=== PATIENT | male | born 1955 ===

== ENCOUNTER 2017-11-08 07:08 | Day surgery (SDC) | payer MEDICARE ==
[2016-05-26 14:47] VITALS: BMI 28.0
[2017-11-08] MEDS ORDERED: Iodixanol 320 MG/ML 200 ML BOTTLE IV ONE (07:14)
[2017-11-08] MEDS ORDERED: Lidocaine 2% Inj (20ml) ONE (07:14)
[2017-11-08] MEDS ORDERED: Midazolam 2 MG/2 ML VIAL ONE ×2 (07:14→07:44)
[2017-11-08 08:19] LABS: BASO # 0.04 K/mm3 (0.0-2.0); BASO % 0.6 % (0.0-3.0); EOS # 0.2 (0.0-0.7); EOS % 2.5 % (1.5-5.0); GRAN # 4.8 (1.4-6.5); GRAN % 66.4 % (50.0-68.0); HEMOGLOBIN 15.2 g/dL (14.0-18.0); LYMPH # 1.4 (1.2-3.4); LYMPH % 19.4 % (22.0-35.0); MEAN CELL VOLUME 85.6 fl (80.0-105.0); MEAN CORPUSCULAR HEMOGLOBIN 30.4 pg (25.0-35.0); MEAN CORPUSCULAR HGB CONC 35.5 g/dl (31.0-37.0); MEAN PLATELET VOLUME 10.8 fl (7.0-11.0); MONO # 0.8 (0.1-0.6); MONO % 11.1 % (1.0-6.0); RED CELL DISTRIBUTION WIDTH 13.2 % (11.5-14.5); WHITE BLOOD COUNT 7.2 10^3/ul (4.5-11.0)
[2017-11-08 08:30] LABS: CALCIUM 9.6 mg/dL (8.4-10.5)
[2017-11-08 08:33] LABS: INR 1.08 (0.93-1.08); PARTIAL THROMBOPLASTIN TIME 30.8 Seconds (25.1-36.5); PROTHROMBIN TIME 12.4 SECONDS (9.4-12.5)
[2017-11-08] MEDS ORDERED: Iohexol 350mgl/ml 50 ML ONE (09:15)
[2017-11-08] MEDS ORDERED: Eptifibatide 20 mg/10mL Inj IVP ONE (09:22)
[2017-11-08] MEDS ORDERED: Sodium Chloride 0.9% 1,000 ML IV SCH (09:30)
--- NOTE | 2017-11-08 10:20 | CARDCATH ---
PROCEDURE DATE: 11/08/2017 CARDIAC CATHETERIZATION AND PTCA HISTORY: The patient is a 62-year-old male who presented with unstable angina. He suffers from hypertension, hypercholesterolemia, history of CVA and history of paroxysmal atrial fibrillation. Because of his abnormal stress test, cardiac catheterization was recommended. PROCEDURES: Left heart catheterization with coronary arteriography, left ventriculogram, and PTCA and stent of the circumflex artery. I performed moderate sedation, which included the presence of an independent trained observer that assisted in monitoring the patient's level of consciousness and physiologic status. After administration of Versed and fentanyl, my intra service time was 30 minutes. The findings on catheterization revealed a right dominant circulation. The RCA revealed diffuse atherosclerosis without critical lesions. In the distal posterior lateral branch, there was a 99% stenoses noted. His left main artery was unremarkable. The LAD was diffusely diseased with diffuse disease throughout the LAD with multiple 40% to 70% lesions throughout its course. The circumflex artery revealed a 90% stenosis in the mid circumflex artery. LV function was normal on the stress test; however, the LVEDP was 10 mmHg on measurement in the [employer]. The patient was given IV Angiomax and two boluses of Integrilin. An ATW wire was used to cross the critical lesion. A 2.5 x 12 mm drug-eluting stent was placed and deployed at 14 atmospheres of pressure in the circumflex artery. Repeat coronary arteriography revealed an excellent result with no residual stenosis and HERVE III flow. Less than 50 mL of contrast dye was utilized given his poor renal function. The patient tolerated the procedure well. In summary, the procedure was successful PTCA and stent of a 90% circumflex artery with a drug-eluting stent. Cardiac catheterization revealed diffuse atherosclerosis with diffuse disease in the LAD, critical lesion in the circumflex artery as well as a critical disease in the distal portion of the posterolateral branch of the RCA. LV function is normal by nuclear study. Given these findings, the patient will need to remain on aspirin indefinitely and Plavix for least a year and undergo a strict cardiac risk reduction program. Juan Lujan MD
--- NOTE | 2017-11-08 11:35 | CARD ---
APPROVED REPORT EKG Measurement Heart [id number] [place] 200P17 [id number] <Conclusion> Sinus bradycardia with borderline 1st degree AVB PRWP No change
--- NOTE | 2017-11-08 13:00 | CARD ---
APPROVED REPORT EKG Measurement Heart [id number] 200P-8 [id number] <Conclusion> Sinus bradycardia Otherwise normal ECG
[2017-11-08] MEDS ORDERED: Insulin Detemir 100 units/ml Vial (Levemir) SC ONE ×2 (21:28→21:45)
[2017-11-08] MEDS ORDERED: Insulin Lispro 1 UNITS/0.01 ML SC ONE (21:29)
--- NOTE | 2017-11-08 23:16 | CP.PCM.PN ---
Subjective - Date & Time of Evaluation Date of Evaluation: 11/08/17 Time of Evaluation: 23:12 - Subjective Subjective: S:Patient seen at bedside. He was seen because his blood glucose was 324mg %. States that he is on 22 units of Lantus,last time he had it was 2 days ago. Has no complaints. Medical record was reviewed. O: Last Vital Signs 3 Temp 98.1 F 11/08/17 18:00 Pulse 61 11/08/17 22:00 Resp 21 11/08/17 18:00 BP 152/85 H 11/08/17 18:00 Pulse Ox 98 11/08/17 10:00 Awake, alert, not in distress. LUNGS: Normal breathing pattern. A:Hyperglycemia. Elevated blood pressure reading. P:Regular insulin 4 Units SC x 1. Levemir 20 U SC stat. Monitor BP. Objective - Vital Signs/Intake and Output Vital Signs (last 24 hours): Temp Pulse Resp BP Pulse Ox 98.1 F 61 21 152/85 H 98 11/08/17 18:00 11/08/17 22:00 11/08/17 18:00 11/08/17 18:00 11/08/17 10:00 - Medications Medications: Current Medications Aspirin (Ecotrin) 81 mg PO DAILY [facility] Last Admin: 11/08/17 10:10 Dose: Not Given Atorvastatin Calcium (Lipitor) 40 mg PO DIN [facility] Last Admin: 11/08/17 16:43 Dose: 40 mg Clonidine HCl (Catapres) 0.1 mg PO BID [facility] Last Admin: 11/08/17 19:21 Dose: Not Given Clopidogrel Bisulfate (Plavix) 75 mg PO DAILY [facility] Last Admin: 11/08/17 10:11 Dose: Not Given Metoprolol Tartrate (Lopressor) 25 mg PO BID [facility] Last Admin: 11/08/17 18:00 Dose: Not Given - Labs Labs: 11/08/17 08:00 11/08/17 08:00 PT 12.4 SECONDS (9.4-12.5) 11/08/17 08:00 INR 1.08 (0.93-1.08) 11/08/17 08:00 APTT 30.8 Seconds (25.1-36.5) 11/08/17 08:00
[2017-11-09 00:06] VITALS: RESP 18
[2017-11-09 05:43] VITALS: TEMP 98.4; O2SAT 97
[2017-11-09 06:20] LABS: BASO # 0.03 K/mm3 (0.0-2.0); BASO % 0.5 % (0.0-3.0); EOS # 0.1 (0.0-0.7); EOS % 1.9 % (1.5-5.0); GRAN # 3.46 (1.4-6.5); GRAN % 60.3 % (50.0-68.0); HEMOGLOBIN 11.9 g/dL (14.0-18.0); LYMPH # 1.4 (1.2-3.4); LYMPH % 23.7 % (22.0-35.0); MEAN CELL VOLUME 85.6 fl (80.0-105.0); MEAN CORPUSCULAR HEMOGLOBIN 29.6 pg (25.0-35.0); MEAN CORPUSCULAR HGB CONC 34.6 g/dl (31.0-37.0); MEAN PLATELET VOLUME 11.1 fl (7.0-11.0); MONO # 0.8 (0.1-0.6); MONO % 13.6 % (1.0-6.0); RBC 4.02 10^6/uL (3.5-6.1); RED CELL DISTRIBUTION WIDTH 13.2 % (11.5-14.5); WHITE BLOOD COUNT 5.7 10^3/ul (4.5-11.0)
[2017-11-09 07:53] LABS: CALCIUM 8.9 mg/dL (8.4-10.5)
--- NOTE | 2017-11-09 09:08 | PN ---
DATE: 11/09/2017 SUBJECTIVE: The patient is asymptomatic. PHYSICAL EXAMINATION: VITAL SIGNS: Blood pressure is 144/72, the heart rates in the 50s. NECK: Negative JVD. LUNGS: Without rales. HEART: Reveals S1, S2. EXTREMITIES: Without edema. LABORATORY DATA: Hemoglobin is 11.9. Chemistries: BUN and creatinine is pending today. Glucose is 194. IMPRESSION: 1. Stable post percutaneous transluminal coronary angioplasty and stent of the circumflex artery. 2. Hypertension. 3. Diabetes mellitus. 4. Hypercholesterolemia. Given these findings, the patient is stable for discharge. We will continue on the aspirin and Plavix. We will change the medications to Eliquis and Plavix at home and we will hold off on aspirin given the high risk of bleeding with multiple medications. Followup instructions were given to the patient in detail. Juan Lujan MD
[2017-11-09 10:04] VITALS: BP 138/78
--- NOTE | 2017-11-09 11:08 | CARD ---
APPROVED REPORT EKG Measurement Heart [id number] [id number] <Conclusion> Sinus bradycardia Otherwise normal ECG No change
--- NOTE | 2017-11-09 11:31 | PN ---
DATE: 11/09/2017 CARDIOLOGY FOLLOWUP SUBJECTIVE: The patient is without chest pain. PHYSICAL EXAMINATION VITAL SIGNS: Blood pressure is 144/72, the heart rate is in the 50s. NECK: Negative JVD. LUNGS: Without rales. HEART: Reveals S1 and S2. EXTREMITIES: Without edema. The right groin site is stable. LABORATORY DATA: Hemoglobin is 11.9. Chemistries: BUN and creatinine is 27 and 1.6. IMPRESSION: 1. Stable post percutaneous transluminal coronary angioplasty and stent. 2. Diabetes mellitus. 3. Renal insufficiency. 4. Hypertension. 5. History of cerebrovascular accident. PLAN: Given these findings, I had an extensive discussion with the patient and family about his diffuse atherosclerosis and his needs to dramatically change his lifestyle and his way of living. He needs to participate in a cardiac rehab program and undergo a strict cardiac risk reduction program. He needs to lose about 20 pounds. The patient understands. All questions were answered. The patient can be discharged today. Juan Lujan MD
[2017-11-09 11:48] VITALS: PULSE 60
== END 2017-11-09 12:14 | disposition home or self-care (01) ==
LOC: CATH 07:08 → 2RNO 09:55 → CATH 11-09 12:14
PROVIDERS: ATTEND Internal Medicine Cardiovascular Disease
DX: I25.110 Atherosclerotic heart disease of native coronary artery with unstable angina pectoris (principal); E78.00 Pure hypercholesterolemia, unspecified; I10 Essential (primary) hypertension; I48.0 Paroxysmal atrial fibrillation; E11.65 Type 2 diabetes mellitus with hyperglycemia; Z86.73 Personal history of transient ischemic attack (TIA), and cerebral infarction without residual deficits
CPT/HCPCS: 36415 ×2; 80048 ×2; 80061; 82948 ×2; 85025 ×2; 85610; 85730; 86850; 86900; 93005 ×2; 93458; 99152; C1760; C1769; C1874; C1887; C2629; C9600; J0360; J0583; J1327; J1644; J2250; J3010; J7030; J7040; Q9966; Q9967

== ENCOUNTER 2018-01-25 16:31 | Inpatient (IN) | payer MEDICARE, OTHER ==
[2018-01-25 16:36] VITALS: BMI 27.6
[2018-01-25] MEDS ORDERED: Sodium Chloride 0.9% 1,000 ML IV STA (17:06)
[2018-01-25 18:13] LABS: BASO # 0.02 K/mm3 (0.0-2.0); BASO % 0.2 % (0.0-3.0); EOS % 0.2 % (1.5-5.0); GRAN # 9.52 (1.4-6.5); GRAN % 80.3 % (50.0-68.0); HEMOGLOBIN 12.4 g/dL (14.0-18.0); LYMPH # 0.8 (1.2-3.4); LYMPH % 6.5 % (22.0-35.0); MEAN CELL VOLUME 85.2 fl (80.0-105.0); MEAN CORPUSCULAR HGB CONC 34.1 g/dl (31.0-37.0); MEAN PLATELET VOLUME 11.1 fl (7.0-11.0); MONO # 1.5 (0.1-0.6); MONO % 12.8 % (1.0-6.0); RBC 4.27 10^6/uL (3.5-6.1); RED CELL DISTRIBUTION WIDTH 13.2 % (11.5-14.5); WHITE BLOOD COUNT 11.8 10^3/ul (4.5-11.0)
[2018-01-25 18:17] LABS: ALB/GLOB RATIO 1.4 (1.1-1.8); ALBUMIN 4.1 g/dL (3.0-4.8); ALT/SGPT 29 U/L (7-56); AST/SGOT 23 U/L (17-59); BLOOD UREA NITROGEN 33 mg/dL (7-21); CALCIUM 9.5 mg/dL (8.4-10.5); GFR NON-AFRICAN AMERICAN 34; LIPASE 46 U/L (23-300)
[2018-01-25 18:24] LABS: TROPONIN I < 0.01 ng/mL
--- NOTE | 2018-01-25 19:17 | ED PDOC ---
Arrival/HPI - General Chief Complaint: Abdominal Pain Time Seen by Provider: 01/25/18 17:06 Historian: Patient - History of Present Illness Narrative History of Present Illness (Text): 01/25/18 17:06 62 year old male, with past medical history of hypertension, diabetes, CVA ( residual L hp) on plavix, and peripheral artery disease, presents to the Emergency Department complaining of abdominal pain since 2 days. Patient informs symptoms initially presented as epigastric discomfort, which later radiated to his right lower quadrant. Patient states associated nausea, vomiting and decreased appetite. Patient denies any fever, chills, diarrhea, chest pain, shortness of breath, cough, headache, dizziness, neck pain, back pain, hematuria, hematochezia, dysuria, urinary output changes or any other complaints. Time/Duration: < week Symptom Onset: Gradual Symptom Course: Unchanged Quality: Aching Activities at Onset: Light Context: Home Past Medical History - Provider Review Nursing Documentation Reviewed: Yes - Infectious Disease Hx of Infectious Diseases: None - Tetanus Immunization Tetanus Immunization: Unknown - Cardiac Hx Hypertension: Yes Hx Pacemaker: No Hx Peripheral Vascular Disease: Yes - Pulmonary Hx Respiratory Disorders: No - Neurological Hx Neurological Disorder: Yes HX Cerebrovascular Accident: Yes - HEENT Hx HEENT Disorder: No - Renal Hx Renal Disorder: No - Endocrine/Metabolic Hx Diabetes Mellitus Type 2: Yes - Hematological/Oncological Hx Blood Transfusions: No - Integumentary Hx Dermatological Disorder: No - Musculoskeletal/Rheumatological Hx Musculoskeletal Disorders: Yes - Gastrointestinal Hx Gastrointestinal Disorders: Yes Hx Gastroesophageal Reflux: Yes - Genitourinary/Gynecological Hx Genitourinary Disorders: No - Psychiatric Hx Emotional Abuse: No Hx Physical Abuse: No Hx Substance Use: No - Surgical History Hx Cardiac Catheterization: Yes (x 1 stent) Other/Comment: left leg stent x 3 stents. L great toe amputation - Anesthesia Hx Anesthesia: Yes Hx Anesthesia Reactions: No Hx Malignant Hyperthermia: No - Suicidal Assessment Feels Threatened In Home Enviroment: No Family/Social History - Physician Review Nursing Documentation Reviewed: Yes Family/Social History: No Known Family HX Smoking Status: Former Smoker Hx Alcohol Use: No Hx Substance Use: No Hx Substance Use Treatment: No Allergies/Home Meds Allergies/Adverse Reactions: Allergies No Known Allergies Allergy (Verified 05/26/16 14:45) Home Medications: Home Meds Medication Instructions Recorded Confirmed DULoxetine [Cymbalta] 60 mg PO DAILY 11/18/14 01/25/18 Alprazolam [Xanax] 0.5 mg PO BID 04/12/16 01/25/18 Amiodarone HCl [Pacerone] 100 mg PO DAILY 10/29/17 01/25/18 GlipiZIDE [Glucotrol] 5 mg PO BID 10/29/17 01/25/18 Repaglinide [Prandin] 0.5 mg PO BID 10/29/17 01/25/18 hydrALAZINE [Apresoline] 25 mg PO TID 11/05/17 01/25/18 Insulin Glargine,Hum.rec.anlog 22 unit SC DAILY 01/25/18 01/25/18 [Basaglar Kwikpen U-100] Lisinopril [Zestril] 40 mg PO DAILY 01/25/18 01/25/18 Metoprolol Succinate XL [Toprol XL] 1 tab PO DAILY 01/25/18 01/25/18 Review of Systems - Physician Review All systems were reviewed & negative as marked: Yes - Review of Systems Constitutional: absent: Fevers Respiratory: absent: SOB, Cough Cardiovascular: absent: Chest Pain, Palpitations Gastrointestinal: Abdominal Pain, Nausea, Vomiting. absent: Diarrhea, Hematochezia Genitourinary Male: absent: Dysuria, Hematuria, Urinary Output Changes Musculoskeletal: absent: Back Pain, Neck Pain Neurological: absent: Headache, Dizziness Physical Exam Vital Signs Reviewed: Yes Vital Signs Temp Pulse Resp BP Pulse Ox 01/25/18 21:45 66 16 147/66 98 01/25/18 19:46 67 18 126/80 99 01/25/18 16:41 98.0 F 82 18 125/73 97 Temperature: Afebrile Blood Pressure: Normal Pulse: Regular Respiratory Rate: Normal Appearance: Positive for: Well-Appearing, Non-Toxic, Comfortable Pain Distress: None Mental Status: Positive for: Alert and Oriented X 3 - Systems Exam Head: Present: Atraumatic, Normocephalic Pupils: Present: PERRL Extroacular Muscles: Present: EOMI Conjunctiva: Present: Normal Mouth: Present: Moist Mucous Membranes Neck: Present: Normal Range of Motion Respiratory/Chest: Present: Clear to Auscultation, Good Air Exchange. No: Respiratory Distress, Accessory Muscle Use Cardiovascular: Present: Regular Rate and Rhythm, Normal S1, S2. No: Murmurs Abdomen: Present: Tenderness (tenderness to right lower quadrant). No: Distention, Peritoneal Signs Back: Present: Normal Inspection Upper Extremity: Present: Normal Inspection. No: Cyanosis, Edema Lower Extremity: Present: Normal Inspection. No: Edema Neurological: Present: GCS=15, CN II-XII Intact, Speech Normal Skin: Present: Warm, Dry, Normal Color. No: Rashes Psychiatric: Present: Alert, Oriented x 3, Normal Insight, Normal Concentration Medical Decision Making ED Course and Treatment: 01/25/18 17:06 Impression: 62 year old male presents to the Emergency Department complaining of abdominal pain. Plan: -- CT of Abdomen/Pelvis -- EKG -- Labs -- Pepcid -- IV Fluids -- Zofran -- Urine Culture -- Urinalysis -- Reassess and disposition Prior Visits: Notes and results from previous visits were reviewed. Progress Notes: 01/25/18 17:06 EKG: Ordered, reviewed, and independently interpreted the EKG. Rate : 78 BPM Rhythm : NSR Interpretation : No ST-segment elevations or depressions, no T-wave inversions, normal intervals. CT of Abdomen/Pelvis reviewed by radiologist, shows: Uncomplicated acute appendicitis with 2 appendicoliths involving the proximal appendix. Incidental and other non-acute findings are described above. 01/25/18 17:50 Discussed case with resident associate, who is aware and agrees with Emergency Department management plan. 01/25/18 17:51 Discussed case with chief medical officer and attendee for medical admission secondary to comorbidities and recent cardiac stent placement. Antibiotics provided as per surgery. - Lab Interpretations Lab Results: 01/25/18 17:20 01/25/18 17:20 Lab Results 01/25/18 20:20: Blood Type O POSITIVE, Antibody Screen Negative, Crossmatch See Detail, BBK History Checked Patient has bt 01/25/18 19:08: Urine Color Yellow, Urine Appearance Sl cloudy, Urine pH 6.0, Ur Specific [place] 1.025, Urine Protein >=300 H, Urine Glucose (UA) >=1000, Urine Ketones Negative, Urine Blood Negative, Urine Nitrate Negative, Urine Bilirubin Negative, Urine Urobilinogen 0.2, Ur Leukocyte Esterase Negative, Urine RBC Negative, Urine WBC 0 - 2, Urine Bacteria Trace, Fine Granular Casts 0 - 2 01/25/18 17:20: Sodium 135, Potassium 4.6, Chloride 98, Carbon Dioxide 25, Anion Gap 16, BUN 33 H, Creatinine 2.0 H, Est GFR ( Amer) 41, Est GFR ( Non-Af Amer) 34, Random Glucose 303 H* D, Calcium 9.5, Magnesium 2.2, Total Bilirubin 0.5, AST 23, ALT 29, Alkaline Phosphatase 73, Troponin I < 0.01, Total Protein 7.1, Albumin 4.1, Globulin 3.0, Albumin/Globulin Ratio 1.4, Lipase 46 01/25/18 17:20: WBC 11.8 H D, RBC 4.27, Hgb 12.4 L, Hct 36.4 L, MCV 85.2, MCH 29.0, MCHC 34.1, RDW 13.2, Plt Count 172, MPV 11.1 H, Gran % 80.3 H, Lymph % ( Auto) 6.5 L, [place] % (Auto) 12.8 H, Eos % (Auto) 0.2 L, Baso % (Auto) 0.2, Gran # 9.52 H, Lymph # (Auto) 0.8 L, [place] # (Auto) 1.5 H, Eos # (Auto) 0.0, Baso # ( Auto) 0.02 - RAD Interpretation Radiology Orders: 01/25/18 18:19 ABD & PELVIS W/O PO OR IV CONT [CT] Stat [employer] Dean: Radiologist - Medication Orders Current Medication Orders: Alprazolam (Xanax) 0.5 mg PO BID [facility] PRN Reason: Protocol Amiodarone HCl (Cordarone) 100 mg PO DAILY REPLACED BY [facility] Atorvastatin Calcium (Lipitor) 40 mg PO DIN [facility] Duloxetine HCl (Cymbalta) 60 mg PO DAILY [facility] Hydralazine HCl (Apresoline) 25 mg PO TID REPLACED BY [facility] Sodium Chloride (Sodium Chloride 0.9%) 1,000 mls @ 100 mls/hr IV .Q10H STA Stop: 01/26/18 03:05 Last Admin: 01/25/18 18:02 Dose: 100 mls/hr eMAR Start Stop Document 01/25/18 18:02 SF (Rec: 01/25/18 18:03 [email or web address] Intravenous Solution Start Date 01/25/18 Start Time 18:02 Cefoxitin Sodium 1 gm/ Sodium (Chloride) 100 mls @ 100 mls/hr IV Q8H [facility] PRN Reason: Protocol Metronidazole (Flagyl) 500 mg in 100 mls @ 100 mls/hr IVPB Q8 [facility] PRN Reason: Protocol Last Admin: 01/25/18 21:36 Dose: 100 mls/hr eMAR Start Stop Document 01/25/18 21:36 VA (Rec: 01/25/18 21:36 [facility] [id number]) Intravenous Solution Start Date 01/25/18 Start Time 21:36 Lactated Ringer's (Lactated Ringer's) 1,000 mls @ 100 mls/hr IV .Q10H [facility] Stop: 01/27/18 21:16 Last Admin: 01/25/18 21:36 Dose: 100 mls/hr eMAR Start Stop Document 01/25/18 21:36 VA (Rec: 01/25/18 21:36 [facility] [id number]) Intravenous Solution Start Date 01/25/18 Start Time 21:36 Lisinopril (Zestril) 40 mg PO DAILY REPLACED BY [facility] Metoprolol Succinate (Toprol Xl) 25 mg PO DAILY [facility] Morphine Sulfate (Morphine) 2 mg IVP Q4H PRN PRN Reason: Pain, moderate (4-7) Ondansetron HCl (Zofran Inj) 4 mg IVP Q4H PRN PRN Reason: Nausea/Vomiting Discontinued Medications Famotidine (Pepcid) 20 mg IVP STAT STA Stop: 01/25/18 17:07 Last Admin: 01/25/18 18:01 Dose: 20 mg IVP Administration Document 01/25/18 18:01 SF (Rec: 01/25/18 18:01 [email or web address] Charges for Administration # of IVP Administrations 1 Ondansetron HCl (Zofran Inj) 4 mg IVP STAT STA Stop: 01/25/18 17:07 Last Admin: 01/25/18 18:01 Dose: 4 mg IVP Administration Document 01/25/18 18:01 SF (Rec: 01/25/18 18:01 [email or web address] Charges for Administration # of IVP Administrations 1 - Scribe Statement The provider has reviewed the documentation as recorded by the Scribe Theresa Soares. All medical record entries made by the Aracelis were at my direction and personally dictated by me. I have reviewed the chart and agree that the record accurately reflects my personal performance of the history, physical exam, medical decision making, and the department course for this patient. I have also personally directed, reviewed, and agree with the discharge instructions and disposition. Disposition/Present on Arrival - Present on Arrival Any Indicators Present on Arrival: Yes History of DVT/PE: No History of Uncontrolled Diabetes: Yes Urinary Catheter: No History of Decub. Ulcer: No History Surgical Site Infection Following: None - Disposition Have Diagnosis and Disposition been Completed?: Yes Diagnosis: Acute appendicitis Disposition: HOSPITALIZED Disposition Time: 20:10 Condition: FAIR
[2018-01-25 19:19] LABS: URINE APPEARANCE SL CLOUDY (CLEAR); URINE BILIRUBIN NEGATIVE (NEGATIVE); URINE BLOOD NEGATIVE (NEGATIVE); URINE COLOR YELLOW (YELLOW); URINE GLUCOSE (UA) >=1000 mg/dL (NEGATIVE); URINE LEUKOCYTE ESTERASE NEGATIVE Leu/uL (NEGATIVE); URINE PROTEIN >=300 mg/dL (<30 mg/dL); URINE UROBILINOGEN 0.2 E.U./dL (<1 E.U./dL)
[2018-01-25 19:21] LABS: URINE BACTERIA TRACE (NEG); URINE FINE GRANULAR CAST 0 - 2 /hpf (0-2); URINE RBC NEGATIVE /hpf (0-2); URINE WBC 0 - 2 /hpf (0-6)
--- NOTE | 2018-01-25 20:51 | CARD ---
APPROVED REPORT Date of service: 01/25/2018 EKG Measurement Heart [id number] 180P32 [id number] <Conclusion> Normal sinus rhythm Normal ECG
--- NOTE | 2018-01-25 21:26 | CP.PCM.CON ---
History of Present Illness - History of Present Illness History of Present Illness: Surgery Consult: Dr. Chong Pt is a 62M with PMHx significant for HTN, DM, HLD, CVA, Paroxysmal Afib, CAD s/ p drug eluting stent placed in November, on Plavix & Eliquis who presents to [facility] with RLQ abdominal pain. Pt states that his pain started on Wednesday as generalized abdominal pain around his umbilicus. He attributed the pain to "gas, " hoping it would resolve, however the pain got worse over the next day. His pain localized to mostly the RLQ & due to the intensity he decided to come to the hospital. Pt denies having similar pain in the past & denies any other associated symptoms. He admits to a headache but denies nausea/vomiting, fevers/ chills, diarrhea/constipation, chest pain or SOB. In the ER, pt had a CT abdomen/pelvis which shows dilated appendix with appendicoliths & fat stranding consistent with acute appendicitis. Surgery called to evaluate. Currently, pt is resting comfortably in bed. States his pain is still present but worse with palpation. Denies other complaints. Pt states his last colonoscopy was last year & was normal. He does admit to having colon polyps removed on previous colonoscopies. PMHx: as stated above PSHx: cardiac stent (November,), Left toe amputation SocialHx: 20+ yr PPD smoking hx, quit yrs ago. Denies EtOH/drugs NKDA Review of Systems - Review of Systems All systems: reviewed and no additional remarkable complaints except (as per HPI ) Past Patient History - Infectious Disease Hx of Infectious Diseases: None - Tetanus Immunizations Tetanus Immunization: Unknown - Past Social History Smoking Status: Former Smoker - CARDIAC Hx Hypertension: Yes Hx Pacemaker: No Hx Peripheral Vascular Disease: Yes - PULMONARY Hx Respiratory Disorders: No - NEUROLOGICAL Hx Neurological Disorder: Yes HX Cerebrovascular Accident: Yes - HEENT Hx HEENT Problems: No - RENAL Hx Chronic Kidney Disease: Yes (Renal insufficiency ) - ENDOCRINE/METABOLIC Hx Diabetes Mellitus Type 2: Yes - HEMATOLOGICAL/ONCOLOGICAL Hx Blood Transfusions: No - INTEGUMENTARY Hx Dermatological Problems: No - MUSCULOSKELETAL/RHEUMATOLOGICAL Hx Musculoskeletal Disorders: Yes - GASTROINTESTINAL Hx Gastrointestinal Disorders: Yes Hx Gastroesophageal Reflux: Yes - GENITOURINARY/GYNECOLOGICAL Hx Genitourinary Disorders: No - PSYCHIATRIC Hx Emotional Abuse: No Hx Physical Abuse: No Hx Substance Use: No - SURGICAL HISTORY Hx Cardiac Catheterization: Yes (x 1 stent) Other/Comment: left leg stent x 3 stents. L great toe amputation - ANESTHESIA Hx Anesthesia: Yes Hx Anesthesia Reactions: No Hx Malignant Hyperthermia: No Meds Allergies/Adverse Reactions: Allergies Allergy/AdvReac Type Severity Reaction Status Date / Time No Known Allergies Allergy Verified 05/26/16 14:45 - Medications Medications: Current Medications Sodium Chloride (Sodium Chloride 0.9%) 1,000 mls @ 100 mls/hr IV .Q10H STA Stop: 01/26/18 03:05 Last Admin: 01/25/18 18:02 Dose: 100 mls/hr Cefoxitin Sodium 1 gm/ Sodium (Chloride) 100 mls @ 100 mls/hr IV Q8H [facility] PRN Reason: Protocol Metronidazole (Flagyl) 500 mg in 100 mls @ 100 mls/hr IVPB Q8 [facility] PRN Reason: Protocol Lactated Ringer's (Lactated Ringer's) 1,000 mls @ 100 mls/hr IV .Q10H [facility] Stop: 01/27/18 21:16 Morphine Sulfate (Morphine) 2 mg IVP Q4H PRN PRN Reason: Pain, moderate (4-7) Ondansetron HCl (Zofran Inj) 4 mg IVP Q4H PRN PRN Reason: Nausea/Vomiting Physical Exam - Constitutional Appears: Well, No Acute Distress - Head Exam Head Exam: ATRAUMATIC, NORMOCEPHALIC - Eye Exam Eye Exam: Normal appearance - ENT Exam ENT Exam: Mucous Membranes Moist - Respiratory Exam Respiratory Exam: NORMAL BREATHING PATTERN - GI/Abdominal Exam GI & Abdominal Exam: Guarding, Soft, Tenderness (RLQ ). absent: Distended, Rebound - Neurological Exam Neurological exam: Alert, Oriented x3 - Skin Skin Exam: Dry, Warm Results - Vital Signs Recent Vital Signs: Last Vital Signs Temp 98.0 F 01/25/18 16:41 Pulse 67 01/25/18 19:46 Resp 18 01/25/18 19:46 BP 126/80 01/25/18 19:46 Pulse Ox 99 01/25/18 19:46 - Labs Result Diagrams: 01/25/18 17:20 01/25/18 17:20 Labs: Laboratory Results - last 24 hr 01/25/18 01/25/18 01/25/18 17:20 17:20 19:08 WBC 11.8 H D RBC 4.27 Hgb 12.4 L Hct 36.4 L MCV 85.2 MCH 29.0 MCHC 34.1 RDW 13.2 Plt Count 172 MPV 11.1 H Gran % 80.3 H Lymph % (Auto) 6.5 L [place] % (Auto) 12.8 H Eos % (Auto) 0.2 L Baso % (Auto) 0.2 Gran # 9.52 H Lymph # (Auto) 0.8 L [place] # (Auto) 1.5 H Eos # (Auto) 0.0 Baso # (Auto) 0.02 Sodium 135 Potassium 4.6 Chloride 98 Carbon Dioxide 25 Anion Gap 16 BUN 33 H Creatinine 2.0 H Est GFR ( Amer) 41 Est GFR (Non-Af Amer) 34 Random Glucose 303 H* D Calcium 9.5 Magnesium 2.2 Total Bilirubin 0.5 AST 23 ALT 29 Alkaline Phosphatase 73 Troponin I < 0.01 Total Protein 7.1 Albumin 4.1 Globulin 3.0 Albumin/Globulin Ratio 1.4 Lipase 46 Urine Color Yellow Urine Appearance Sl cloudy Urine pH 6.0 Ur Specific [place] 1.025 Urine Protein >=300 H Urine Glucose (UA) >=1000 Urine Ketones Negative Urine Blood Negative Urine Nitrate Negative Urine Bilirubin Negative Urine Urobilinogen 0.2 Ur Leukocyte Esterase Negative Urine RBC Negative Urine WBC 0 - 2 Urine Bacteria Trace Fine Granular Casts 0 - 2 BBK History Checked 01/25/18 20:20 WBC RBC Hgb Hct MCV MCH MCHC RDW Plt Count MPV Gran % Lymph % (Auto) [place] % (Auto) Eos % (Auto) Baso % (Auto) Gran # Lymph # (Auto) [place] # (Auto) Eos # (Auto) Baso # (Auto) Sodium Potassium Chloride Carbon Dioxide Anion Gap BUN Creatinine Est GFR ( Amer) Est GFR (Non-Af Amer) Random Glucose Calcium Magnesium Total Bilirubin AST ALT Alkaline Phosphatase Troponin I Total Protein Albumin Globulin Albumin/Globulin Ratio Lipase Urine Color Urine Appearance Urine pH Ur Specific [place] Urine Protein Urine Glucose (UA) Urine Ketones Urine Blood Urine Nitrate Urine Bilirubin Urine Urobilinogen Ur Leukocyte Esterase Urine RBC Urine WBC Urine Bacteria Fine Granular Casts BBK History Checked Patient has bt - Imaging and Cardiology CT scan - abdomen Status: Image reviewed by me Assessment & Plan - Assessment and Plan (Free Text) Assessment: 62M with acute appendicitis Plan: - Keep NPO with IVF & IV ABX - Plan for OR tomorrrow for appendectomy - Cardio eval for risk stratification; pt with recent cardiac cath on AC - d/w Dr. Castillo [place]
[2018-01-25] MEDS: Lactated Ringer's 1,000 ML IV SCH (21:36)
[2018-01-25] MEDS: metroNIDAZOLE IV 500 mg/100 ml 500 MG/100 ML BAG IVPB SCH (21:36)
[2018-01-25] MEDS: cefOXitin Sodium 1 GM in Sodium Chloride 0.9% 100 ML IV SCH (22:41)
[2018-01-25] MEDS: Morphine 2 mg/ml ISec IVP PRN (23:20)
--- NOTE | 2018-01-25 23:27 | CP.PCM.HP ---
<Ayden Parker - Last Filed: 01/26/18 03:06> History of Present Illness - History of Present Illness History of Present Illness: Ayden Parker, Internal Medicine History and Physical for Dr. Mariscal CC: abdominal pain 62 year old male with past medical history of hypertension, PAD, GERD, DM II, CAD s/p stent placement in October, amputation of left toe, stroke 5-6 years ago, CKD presents with burning lower abdominal pain that started 48 hours ago. Patient reported walking in the park when the pain started. Patient reports never having this kind of pain before. Patient radiates to right lower quadrant more than the left and to his lower back and right upper quadrant. Pain was constant in nature and reports that the pain was 7/10 when it started and is currently 7/10. Patient reports prior to the abdominal pain, he has not had any new food and has had a home cooked meal. Patient denies traveling outside the [place] in the recent past. Patient reports eating makes the pain worse, while nothing makes the pain better. Patient reports constipation. Patient reports having one bowel movement a day. His last bowel movement was 2 pm. He reports straining on defecation but denies any blood in stool. Patient denies fever, nausea, vomiting, diarrhea, dysuria, and hematuria. 12- point ROS was negative except for what was listed above. PMH: as stated above PSH: cardiac stent in October, cervical lymph node biopsy, left 1st toe amputation Allergies: NKDA FMHx: Mother: from colon cancer and diabetes II. Father from leukemia SHx: smoked 1 ppd for 20 years and stopped 20 years ago. Denies alcohol or illicit drug use. PMD: Dr. Hinojosa Pharmacy: [facility] in [place] Insurance: [employer] Present on Admission - Present on Admission Any Indicators Present on Admission: No History of DVT/PE: No History of Uncontrolled Diabetes: No Review of Systems - Constitutional Constitutional: absent: Anorexia, Chills, Fever - EENT Eyes: absent: Blurred Vision Ears: absent: Ear Pain Nose/Mouth/Throat: absent: Dry Mouth - Cardiovascular Cardiovascular: Dyspnea. absent: Chest Pain, Chest Pain at Rest - Respiratory Respiratory: Dyspnea. absent: Cough, Wheezing - Gastrointestinal Gastrointestinal: Abdominal Pain (lower abdominal pain), Constipation. absent: Diarrhea, Nausea, Vomiting - Genitourinary Genitourinary: absent: Dysuria, Hematuria - Musculoskeletal Musculoskeletal: Back Pain. absent: Abnormal Gait - Neurological Neurological: Numbness, Tingling, Weakness (residual weakness on right side from stroke). absent: Abnormal Gait - Psychiatric Psychiatric: absent: Anxiety, Depression, Hallucinations Past Patient History - Infectious Disease Hx of Infectious Diseases: None - Tetanus Immunizations Tetanus Immunization: Unknown - Past Social History Smoking Status: Former Smoker - CARDIAC Hx Hypertension: Yes Hx Pacemaker: No Hx Peripheral Vascular Disease: Yes - PULMONARY Hx Respiratory Disorders: No - NEUROLOGICAL Hx Neurological Disorder: Yes HX Cerebrovascular Accident: Yes - HEENT Hx HEENT Problems: No - RENAL Hx Chronic Kidney Disease: No - ENDOCRINE/METABOLIC Hx Diabetes Mellitus Type 2: Yes - HEMATOLOGICAL/ONCOLOGICAL Hx Blood Transfusions: No - INTEGUMENTARY Hx Dermatological Problems: No - MUSCULOSKELETAL/RHEUMATOLOGICAL Hx Musculoskeletal Disorders: Yes - GASTROINTESTINAL Hx Gastrointestinal Disorders: Yes Hx Gastroesophageal Reflux: Yes - GENITOURINARY/GYNECOLOGICAL Hx Genitourinary Disorders: No - PSYCHIATRIC Hx Emotional Abuse: No Hx Physical Abuse: No Hx Substance Use: No - SURGICAL HISTORY Hx Cardiac Catheterization: Yes (x 1 stent) Other/Comment: left leg stent x 3 stents. L great toe amputation - ANESTHESIA Hx Anesthesia: Yes Hx Anesthesia Reactions: No Hx Malignant Hyperthermia: No Meds Allergies/Adverse Reactions: Allergies Allergy/AdvReac Type Severity Reaction Status Date / Time No Known Allergies Allergy Verified 05/26/16 14:45 Physical Exam - Constitutional Appears: Well, Non-toxic, No Acute Distress - Head Exam Head Exam: ATRAUMATIC, NORMOCEPHALIC - Eye Exam Eye Exam: EOMI, PERRL - ENT Exam ENT Exam: Mucous Membranes Moist - Respiratory Exam Respiratory Exam: Clear to Auscultation Bilateral, NORMAL BREATHING PATTERN - Cardiovascular Exam Cardiovascular Exam: REGULAR RHYTHM, RRR - GI/Abdominal Exam GI & Abdominal Exam: Normal Bowel Sounds, Soft, Tenderness (lower abdominal pain ) - Extremities Exam Extremities exam: Positive for: full ROM, normal inspection, pedal pulses present Additional comments: MSK +5/5 on left side throughout MSK +4/5 for right side throughout - Neurological Exam Neurological exam: Alert, CN II-XII Intact, Oriented x3 - Psychiatric Exam Psychiatric exam: Normal Affect, Normal Mood - Skin Skin Exam: Dry, Intact, Normal Color Results - Vital Signs Recent Vital Signs: Last Vital Signs Temp 98 F 01/25/18 22:45 Pulse 59 L 01/25/18 22:45 Resp 18 01/25/18 22:45 BP 151/78 H 01/25/18 22:45 Pulse Ox 99 01/25/18 22:45 - Labs Result Diagrams: 01/25/18 17:20 01/25/18 23:55 Assessment & Plan - Assessment and Plan (Free Text) Assessment: 62 year old male with past medical history of hypertension, PAD, GERD, DM II, CAD s/p stent placement in October, amputation of left toe, stroke 5-6 years ago, CKD presents with burning lower abdominal pain that started 48 hours ago. Patient will be admitted for abdominal pain and leukocytosis 2/2 to appendicitis vs. cholecystitis vs. PUD. Doubt pancreatitis. Plan: Abdominal pain 2/2 to appendicitis vs. cholecystitis vs. PUD. Doubt pancreatitis -Abdominal CT: Uncomplicated acute appendicitis with 2 appendicoliths involving the proximal appendix. Incidental and other non-acute findings are described above. The appendix demonstrates moderate diffuse distention, consistent with moderate acute appendicitis. There are multiple intraluminal appendiceal calcifications consistent with appendicoliths. Appendiceal diameter 2.2 cm. There is moderate periappendiceal inflammatory stranding. -Patient afebrile. -WBC: 11.8. -Lipase: 46 -Patient does not fulfill SIRS criteria. -As per surgery, Dr. Chong, patient to be taken for appendectomy tomorrow. Continue to follow surgery recommendations. -NPO -Lactated ringer 1L at 100 ml/hr -Type and cross done. -2 U leukoreduced PRBCs ordered for surgery tomorrow. -Cefoxitin 1 gm Q8 and flagyl 500 mg Q8. -Morphine 2 mg Q4PRN for pain. -Zofran 1 mg Q4PRN for nausea -Cardiology, Dr. Del Real, consulted for risk stratification due to recent stent placement and on anticoagulation Leukocytosis -WBC: 11.8. Likely 2/2 to appendicitis vs. infection vs. stress from pain. History of coronary artery disease s/p stent placement -Cardiology, Dr. Del Real, consulted for risk stratification due to recent stent placement and on anticoagulation -EKG: Normal sinus rhythm, HR: 78 -Troponin: <0.01 -PT/INR, PTT values ordered and patients home anticoagulation medication held due to probably surgery tomorrow. -Continue home amiodarone, atorvastatin, lisinopril, metoprolol succinate. History of Hypertension -BP on admission: 125/73. Last BP was 151/78. -Continue home amiodarone, apresoline, lisinopril, metoprolol. -Continue to monitor. History of Diabetes Mellitus Type II -Random glucose: 303 -Last HgbA1c in 04/23 was 7.5%. -HgbA1c, TSH, lipid panel ordered. -Low dose sliding scale insulin started. -Continue to monitor. Chronic Kidney Disease stage III likely 2/2 to diabetes mellitus type II -BUN/Cr: 33/2.0. Creatinine was 1.9 on 11/08/17. -Avoid nephrotoxins, IV contrast. -Continue to monitor. History of depression -Continue with home cymbalta. History of anxiety -Continue with home xanax. Normocytic anemia -Hgb: 12.4 -Continue to monitor closely with CBC. DVT prophylaxis: no ppx currently due to probability of surgery GI prophylaxis: protonix 40 mg daily Patient plan discussed with Dr. Mariscal. - Date & Time Date: 01/25/18 Time: 23:50 <Brenda Mariscal - Last Filed: 01/26/18 05:42> Results - Vital Signs Recent Vital Signs: Last Vital Signs Temp 98.5 F 01/25/18 23:59 Pulse 63 01/25/18 23:59 Resp 18 01/25/18 23:59 BP 132/60 01/25/18 23:59 Pulse Ox 99 01/25/18 22:45 - Labs Result Diagrams: 01/25/18 17:20 01/25/18 23:55 Labs: Laboratory Results - last 24 hr 01/25/18 01/25/18 23:55 23:55 APTT 31.1 Random Glucose 155 H Attending/Attestation - Attestation I have personally seen and examined this patient.: Yes I have fully participated in the care of the patient.: Yes I have reviewed all pertinent clinical information: Yes
[2018-01-25] MEDS ORDERED: Dextrose 50% SYRINGE Inj (50 ml) IV PRN (23:31)
[2018-01-26] MEDS: metroNIDAZOLE IV 500 mg/100 ml 500 MG/100 ML BAG IVPB SCH ×3 (05:24→21:59)
[2018-01-26] MEDS: cefOXitin Sodium 1 GM in Sodium Chloride 0.9% 100 ML IV SCH ×2 (06:21→23:08)
[2018-01-26 07:29] LABS: BASO # 0.02 K/mm3 (0.0-2.0); BASO % 0.2 % (0.0-3.0); EOS # 0.2 (0.0-0.7); EOS % 1.8 % (1.5-5.0); GRAN # 6.61 (1.4-6.5); GRAN % 72.8 % (50.0-68.0); HEMOGLOBIN 11.2 g/dL (14.0-18.0); LYMPH # 1.1 (1.2-3.4); LYMPH % 12.6 % (22.0-35.0); MEAN CELL VOLUME 84.9 fl (80.0-105.0); MEAN CORPUSCULAR HEMOGLOBIN 29.2 pg (25.0-35.0); MEAN CORPUSCULAR HGB CONC 34.4 g/dl (31.0-37.0); MEAN PLATELET VOLUME 10.7 fl (7.0-11.0); MONO # 1.1 (0.1-0.6); MONO % 12.6 % (1.0-6.0); RBC 3.84 10^6/uL (3.5-6.1); WHITE BLOOD COUNT 9.1 10^3/ul (4.5-11.0)
[2018-01-26 07:38] LABS: INR 1.26; PARTIAL THROMBOPLASTIN TIME 29.9 Seconds (25.1-36.5); PROTHROMBIN TIME 14.5 SECONDS (9.4-12.5)
[2018-01-26 07:44] LABS: BLOOD UREA NITROGEN 25 mg/dL (7-21); CALCIUM 9.2 mg/dL (8.4-10.5); GFR NON-AFRICAN AMERICAN 44; HDL CHOLESTEROL 21 mg/dL (29-60)
--- NOTE | 2018-01-26 07:44 | RAD ---
Date of service: 01/26/2018 HISTORY: risk stratification for OR COMPARISON: Frontal chest radiograph 04/12/2016. FINDINGS: LUNGS: Postop changes are reiterated at the right apex laterally. Borderline patchy density is questioned at the medial right upper lung zone as well as left perihilar region. Clinically correlate for potential early infiltrates. Remaining lung cunha appear clear. PLEURA: No significant pleural effusion identified, no pneumothorax apparent. CARDIOVASCULAR: Stable cardiomediastinal silhouette. No pulmonary vascular congestion. OSSEOUS STRUCTURES: No significant abnormalities. VISUALIZED UPPER ABDOMEN: Normal. OTHER FINDINGS: None. IMPRESSION: One limited patchy airspace disease medial right apex and left perihilar region. Clinically correlate further. No pleural effusion or pneumothorax bilaterally. Postoperative change right upper lung zone again appreciated.
[2018-01-26 07:54] LABS: LDL CHOLESTEROL < 30 mg/dL (0-129)
--- NOTE | 2018-01-26 10:18 | CT ---
Date of service: 01/25/2018 PROCEDURE: CT Abdomen and Pelvis without intravenous contrast HISTORY: RLQ tenderness COMPARISON: None. TECHNIQUE: Without contrast.. Contrast dose: Radiation dose: Total exam DLP = 543 mGy-cm. This CT exam was performed using one or more of the following dose reduction techniques: Automated exposure control, adjustment of the mA and/or kV according to patient size, and/or use of iterative reconstruction technique. FINDINGS: LOWER THORAX: Unremarkable. LIVER: Unremarkable. No gross lesion or ductal dilatation. GALLBLADDER AND BILE DUCTS: Unremarkable. PANCREAS: Unremarkable. No gross lesion or ductal dilatation. SPLEEN: Unremarkable. ADRENALS: Unremarkable. No mass. KIDNEYS AND URETERS: Unremarkable. No hydronephrosis. No solid mass. VASCULATURE: Unremarkable. No aortic aneurysm. BOWEL: Unremarkable. No obstruction. No gross mural thickening. APPENDIX: There is acute appendicitis. The appendix is distended to a diameter of 21 mm. There are 2 separate appendicoliths within the appendix measuring 9 and 11 mm diameter. Minimal inflammatory changes are seen PERITONEUM: Unremarkable. No free fluid. No free air. LYMPH NODES: Unremarkable. No enlarged lymph nodes. BLADDER: Unremarkable. REPRODUCTIVE: Unremarkable. BONES: No acute fracture. OTHER FINDINGS: None. IMPRESSION: There is acute appendicitis. The appendix is distended to a diameter of 21 mm. There are 2 separate appendicoliths within the appendix measuring 9 and 11 mm diameter. Minimal inflammatory changes are seen
[2018-01-26] MEDS: Metoprolol Succinate 25 mg XL Tab PO SCH (10:41)
[2018-01-26] MEDS: Insulin Lispro (humaLOG) LOW Coverage SC SCH ×4 (10:48→22:00)
[2018-01-26] MEDS: Lactated Ringer's 1,000 ML IV SCH ×2 (10:48→17:43)
[2018-01-26 11:45] LABS: FREE T4 4.07 ng/dL (0.78-2.19)
[2018-01-26] MEDS: Morphine 2 mg/ml ISec IVP PRN ×2 (11:52→21:59)
[2018-01-26] MEDS ORDERED: Bupivacaine 0.5% Inj(30mL) ONE (13:07)
[2018-01-26] MEDS ORDERED: Midazolam 2 MG/2 ML VIAL ONE (13:22)
[2018-01-26] MEDS ORDERED: Propofol 10 mg/ml Inj (20 ML) ONE (13:22)
[2018-01-26] MEDS ORDERED: Succinylcholine 200 mg/10 ml Inj IV ONE (13:23)
[2018-01-26] MEDS ORDERED: Rocuronium 10 mg/ml (5 ml) ONE (13:23)
[2018-01-26] MEDS ORDERED: ePHEDrine 50 mg/ml Inj ONE (13:28)
--- NOTE | 2018-01-26 14:51 | CP.PCM.PN ---
<Ivan Daniels - Last Filed: 01/26/18 16:14> Subjective - Date & Time of Evaluation Date of Evaluation: 01/26/18 Time of Evaluation: 14:48 - Subjective Subjective: Ivan Daniels D.O PGY-1, Internal Medicine progress note for Dr. Ly Patient was examined at bedside, no acute overnight events. Patient complains of right lower quadrant pain that remains unchanged since yesterday. Denies fevers, chills, chest pain, shortness of breath, N/V/D. Objective - Vital Signs/Intake and Output Vital Signs (last 24 hours): Temp Pulse Resp BP Pulse Ox 98.2 F 62 20 144/60 97 01/26/18 13:33 01/26/18 13:33 01/26/18 13:33 01/26/18 13:33 01/26/18 13:33 Intake and Output: 01/26/18 01/26/18 06:59 18:59 Intake Total 0 0 Output Total 500 Balance -500 0 - Medications Medications: Current Medications Alprazolam (Xanax) 0.5 mg PO BID [facility] PRN Reason: Protocol Last Admin: 01/26/18 10:41 Dose: 0.5 mg Amiodarone HCl (Cordarone) 100 mg PO DAILY [facility] Last Admin: 01/26/18 10:41 Dose: 100 mg Atorvastatin Calcium (Lipitor) 40 mg PO DIN [facility] Dextrose (Dextrose 50% Inj) 0 ml IV STAT PRN; Protocol PRN Reason: Hypoglycemia Protocol Duloxetine HCl (Cymbalta) 60 mg PO DAILY [facility] Last Admin: 01/26/18 10:41 Dose: 60 mg Hydralazine HCl (Apresoline) 25 mg PO TID [facility] Last Admin: 01/26/18 10:41 Dose: 25 mg Cefoxitin Sodium 1 gm/ Sodium (Chloride) 100 mls @ 100 mls/hr IV Q8H [facility] PRN Reason: Protocol Last Admin: 01/26/18 06:21 Dose: 100 mls/hr Metronidazole (Flagyl) 500 mg in 100 mls @ 100 mls/hr IVPB Q8 [facility] PRN Reason: Protocol Last Admin: 01/26/18 05:24 Dose: 100 mls/hr Lactated Ringer's (Lactated Ringer's) 1,000 mls @ 100 mls/hr IV .Q10H [facility] Stop: 01/27/18 21:16 Last Admin: 01/26/18 10:48 Dose: 100 mls/hr Dextrose (Dextrose 5% In Water 1000 Ml) 1,000 mls @ 0 mls/hr IV .Q0M PRN; Protocol; Per Protocol PRN Reason: Hypoglycemia Protocol Insulin Human Lispro (Humalog Low) 0 units SC ACHS [facility] PRN Reason: Protocol Last Admin: 01/26/18 12:22 Dose: Not Given Lisinopril (Zestril) 40 mg PO DAILY [facility] Last Admin: 01/26/18 10:41 Dose: 40 mg Methimazole (Tapazole) 10 mg PO Q8H [facility] Metoprolol Succinate (Toprol Xl) 25 mg PO DAILY [facility] Last Admin: 01/26/18 10:41 Dose: 25 mg Morphine Sulfate (Morphine) 2 mg IVP Q4H PRN PRN Reason: Pain, moderate (4-7) Last Admin: 01/26/18 11:52 Dose: 2 mg Ondansetron HCl (Zofran Inj) 4 mg IVP Q4H PRN PRN Reason: Nausea/Vomiting Pantoprazole Sodium (Protonix Inj) 40 mg IVP DAILY [facility] Last Admin: 01/26/18 10:39 Dose: 40 mg - Labs Labs: 01/26/18 07:00 01/26/18 07:00 PT 14.5 SECONDS (9.4-12.5) H 01/26/18 07:00 INR 1.26 01/26/18 07:00 APTT 29.9 Seconds (25.1-36.5) 01/26/18 07:00 - Constitutional Appears: No Acute Distress - Head Exam Head Exam: ATRAUMATIC, NORMAL INSPECTION - Eye Exam Eye Exam: Normal appearance, PERRL - ENT Exam ENT Exam: Mucous Membranes Moist - Respiratory Exam Respiratory Exam: Clear to Ausculation Bilateral. absent: Rales, Rhonchi, Wheezes, Respiratory Distress - Cardiovascular Exam Cardiovascular Exam: REGULAR RHYTHM, +S1, +S2. absent: Gallop, Rubs, Murmur - GI/Abdominal Exam GI & Abdominal Exam: Soft, Tenderness, Normal Bowel Sounds Additional comments: RLQ tender to palpation. Pain at Mcburney's point. + Rovsing sign. - Extremities Exam Extremities Exam: absent: Calf Tenderness, Pedal Edema - Neurological Exam Neurological Exam: Alert, Awake, Oriented x3 - Psychiatric Exam Psychiatric exam: Normal Affect, Normal Mood - Skin Skin Exam: Dry, Intact, Normal Color, Warm Assessment and Plan - Assessment and Plan (Free Text) Assessment: 62 year old male with past medical history of hypertension, PAD, GERD, DM II, CAD s/p stent placement in October, amputation of left toe, stroke 5-6 years ago, admitted for acute appendicitis. Patient is going for surgery today. Plan: Acute appendicitis -Abdominal CT: Uncomplicated acute appendicitis with 2 appendicoliths involving the proximal appendix. Incidental and other non-acute findings are described above. The appendix demonstrates moderate diffuse distention, consistent with moderate acute appendicitis. There are multiple intraluminal appendiceal calcifications consistent with appendicoliths. Appendiceal diameter 2.2 cm. There is moderate periappendiceal inflammatory stranding. - Patient is afebrile - WBC: 9.1 - Lipase: 46 - As per surgery, Dr. Chong, patient to be taken for appendectomy today - NPO - Lactated ringer 1L at 100 ml/hr - Type and cross done - C/w Cefoxitin 1 gm Q8 and flagyl 500 mg Q8. - Morphine 2 mg Q4PRN for pain. - Zofran 4 mg Q4PRN for nausea - Chest x-ray revealed one limited patchy airspace disease medial right apex and left perihilar region, remaining lung cunha appear clear - Cardiology, Dr. Archer, cleared pt for surgery Leukocytosis, resolved - Likely 2/2 to acute appendicitis - WBC: 9.1 from 11.8. History of coronary artery disease s/p stent placement - Cardiology, Dr. Archer, consulted for risk stratification due to recent stent placement and on anticoagulation- cleared for surgery - EKG: Normal sinus rhythm, HR: 78 - Troponin: <0.01 - PT was elevated (14.5), PTT was within normal limits, INR - 1.26 - Continue home amiodarone, atorvastatin, lisinopril, metoprolol succinate. - Hold home anticoagulation- plavix and eliquis, will follow up with Dr. Lujan when to restart medications Hyperthyroroidism - TSH: <0.02 - Free T4: 4.07 - Endocrinology consulted, Dr. Edmonds - Started Methimazole 10mg PO Q8 History of Hypertension - Continue home amiodarone, apresoline, lisinopril, metoprolol. - Continue to monitor. History of Diabetes Mellitus Type II - HgbA1c is 8.9 - Low dose sliding scale insulin started - ACHS accuchecks Chronic Kidney Disease stage III - Likely 2/2 to diabetes mellitus type II - BUN/Cr: 25/1.6. Creatinine was 1.9 on 11/08/17. - Avoid nephrotoxins, IV contrast. - Continue to monitor History of depression and anxiety - Continue with home cymbalta and xanax DVT prophylaxis: no ppx- patine GI prophylaxis: protonix 40 mg daily Patient case reviewed with and plan approved by attending physician, Dr. Ly. <Maureen Ly R - Last Filed: 01/28/18 21:19> Objective - Vital Signs/Intake and Output Vital Signs (last 24 hours): Temp Pulse Resp BP Pulse Ox 97.5 F L 104 H 20 156/87 H 97 01/28/18 14:00 01/28/18 14:00 01/28/18 14:00 01/28/18 17:15 01/28/18 14:00 Intake and Output: 01/28/18 01/29/18 18:59 06:59 Output Total 100 Balance -100 - Labs Labs: 01/28/18 05:45 01/28/18 05:45 PT 15.4 SECONDS (9.4-12.5) H 01/27/18 06:00 INR 1.33 01/27/18 06:00 APTT 29.9 Seconds (25.1-36.5) 01/26/18 07:00 Attending/Attestation - Attestation I have personally seen and examined this patient.: Yes I have fully participated in the care of the patient.: Yes I have reviewed all pertinent clinical information, including history, physical exam and plan: Yes Notes (Text): Patient seen and examined by me at 11AM with resident 01/26/18. Case including HPI, physical exam, and assessment and plan discussed with resident. Agree with above with following additions/corrections. Patient is a 62 year old male with past medical history significant for hypertension, PAD, GERD, DM2, CAD s/p stent, CVA, and CKD that presented to the emergency room with burning lower abdominal pain. Patient states he is feeling ok. States he is still having lower abdominal pain , worse on the right lower quadrant. Pain medications are helping. Sitting up helps with pain. Pain radiates to entire abdomen. Denies any current nausea or vomiting. No chest pain or shortness of breath. No headaches or dizziness. No fevers or chills. No dysuria. Physical exam: Gen: Awake and alert sitting up in bed in no acute distress HEENT: Normocephalic, atraumatic. Extraocular muscles intact, pupils equal reactive. No scleral icterus. Cardiovascular: Normal rhythm. Normal S1, S2. No murmurs, rubs or gallops appreciated Pulmonary: Normal respiratory effort. No rhonchi, rales, or wheezing appreciated. Gastrointestinal: Soft, nondistended, positive bowel sounds all 4 quadrants, no guarding. Positive generalized abdominal tenderness, more prominent on right lower quadrant. Musculoskeletal: Moves all extremities. No calf tenderness Central nervous system: AAO x 3. Dermatologic: Skin warm and dry Assessment and plan: Patient is a 62 year old male with past medical history significant for hypertension, PAD, GERD, DM2, CAD s/p stent, CVA, and CKD that presented to the emergency room with burning lower abdominal pain. 1. Acute appendicitis. CT abd/pelvis per radiologist shows acute appendicitis. Surgery following, recommendations appreciated. Patient for appendectomy today. Continue with pain management. Continue with Cefoxitin. Continue IV fluids. 2. New hyperthyroidism. Endocrinology consulted, recommendations appreciated. Started on methimazole. 3. Leukocytosis. Secondary to #1. Resolved. Continue with Cefoxitin. 4. CAD. Cardiology following, recommendations appreciated. Continue home amiodarone, lipitor, lisinopril, and metoprolol. Plavix and Eliquis held for now for surgery. Will need surgical clearance to restart 5. Hypertension. Continue lisinopril and metoprolol 6. DM2. Continue insulin sliding scale. Monitor accuchecks 7. CKD. Creatinine improved with IV fluids. Continue to monitor. 8. Depression and anxiety. Continue home cymbalta and xanax. Case discussed in detail with patient and patient's family at bedside regarding current diagnosis and treatment plan.
--- NOTE | 2018-01-26 14:51 | CP.PCM.CON ---
History of Present Illness - History of Present Illness History of Present Illness: Endocrinology consult note: 62 year old male with PMHx of hypertension, Afib, PAD, GERD, DM II, CAD s/p stent placement in October, CVA , and CKD presents with abdominal pain that started 2 days ago and has gotten progressively worse. CT scan was done which showed acute appendicitis. Patient was made NPO, surgery was consulted, Antibiotics was started and is currently in the OR. Endocrinology is consulted for abnormal thyroid studies. Patient denies any recent symptoms of hyperthyroidism such as tremors, restlessness, agitation, loss of sleep. No other complaints other than his abdominal pain. 12 Point ROS performed and neg other than stated above. PMH: as above PSH: cardiac stent in October, left 1st toe amputation Allergies: NKA FMHx: Mother with diabetes II. Father passed from leukemia SHx: smoked 1 ppd for 20 years and stopped 20 years ago. Denies smoking, alcohol or illicit drug use. Review of Systems - Review of Systems All systems: reviewed and no additional remarkable complaints except Past Patient History - Infectious Disease Hx of Infectious Diseases: None - Tetanus Immunizations Tetanus Immunization: Unknown - Past Social History Smoking Status: Former Smoker - CARDIAC Hx Hypertension: Yes Hx Pacemaker: No Hx Peripheral Vascular Disease: Yes - PULMONARY Hx Respiratory Disorders: No - NEUROLOGICAL Hx Neurological Disorder: Yes HX Cerebrovascular Accident: Yes - HEENT Hx HEENT Problems: No - RENAL Hx Chronic Kidney Disease: Yes (Renal insufficiency ) - ENDOCRINE/METABOLIC Hx Diabetes Mellitus Type 2: Yes - HEMATOLOGICAL/ONCOLOGICAL Hx Blood Transfusions: No Hx Blood Transfusion Reaction: No - INTEGUMENTARY Hx Dermatological Problems: No - MUSCULOSKELETAL/RHEUMATOLOGICAL Hx Musculoskeletal Disorders: Yes - GASTROINTESTINAL Hx Gastrointestinal Disorders: Yes Hx Gastroesophageal Reflux: Yes - GENITOURINARY/GYNECOLOGICAL Hx Genitourinary Disorders: No - PSYCHIATRIC Hx Emotional Abuse: No Hx Physical Abuse: No Hx Substance Use: No - SURGICAL HISTORY Hx Surgeries: Yes - ANESTHESIA Hx Anesthesia Reactions: No Hx Malignant Hyperthermia: No Meds Allergies/Adverse Reactions: Allergies Allergy/AdvReac Type Severity Reaction Status Date / Time No Known Allergies Allergy Verified 05/26/16 14:45 - Medications Medications: Current Medications Alprazolam (Xanax) 0.5 mg PO BID [facility] PRN Reason: Protocol Last Admin: 01/26/18 10:41 Dose: 0.5 mg Amiodarone HCl (Cordarone) 100 mg PO DAILY [facility] Last Admin: 01/26/18 10:41 Dose: 100 mg Atorvastatin Calcium (Lipitor) 40 mg PO DIN [facility] Dextrose (Dextrose 50% Inj) 0 ml IV STAT PRN; Protocol PRN Reason: Hypoglycemia Protocol Duloxetine HCl (Cymbalta) 60 mg PO DAILY [facility] Last Admin: 01/26/18 10:41 Dose: 60 mg Hydralazine HCl (Apresoline) 25 mg PO TID [facility] Last Admin: 01/26/18 10:41 Dose: 25 mg Cefoxitin Sodium 1 gm/ Sodium (Chloride) 100 mls @ 100 mls/hr IV Q8H [facility] PRN Reason: Protocol Last Admin: 01/26/18 06:21 Dose: 100 mls/hr Metronidazole (Flagyl) 500 mg in 100 mls @ 100 mls/hr IVPB Q8 [facility] PRN Reason: Protocol Last Admin: 01/26/18 05:24 Dose: 100 mls/hr Lactated Ringer's (Lactated Ringer's) 1,000 mls @ 100 mls/hr IV .Q10H [facility] Stop: 01/27/18 21:16 Last Admin: 01/26/18 10:48 Dose: 100 mls/hr Dextrose (Dextrose 5% In Water 1000 Ml) 1,000 mls @ 0 mls/hr IV .Q0M PRN; Protocol; Per Protocol PRN Reason: Hypoglycemia Protocol Insulin Human Lispro (Humalog Low) 0 units SC ACHS [facility] PRN Reason: Protocol Last Admin: 01/26/18 12:22 Dose: Not Given Lisinopril (Zestril) 40 mg PO DAILY [facility] Last Admin: 01/26/18 10:41 Dose: 40 mg Methimazole (Tapazole) 10 mg PO Q8H [facility] Metoprolol Succinate (Toprol Xl) 25 mg PO DAILY [facility] Last Admin: 01/26/18 10:41 Dose: 25 mg Morphine Sulfate (Morphine) 2 mg IVP Q4H PRN PRN Reason: Pain, moderate (4-7) Last Admin: 01/26/18 11:52 Dose: 2 mg Ondansetron HCl (Zofran Inj) 4 mg IVP Q4H PRN PRN Reason: Nausea/Vomiting Pantoprazole Sodium (Protonix Inj) 40 mg IVP DAILY [facility] Last Admin: 01/26/18 10:39 Dose: 40 mg Physical Exam - Constitutional Appears: No Acute Distress - Head Exam Head Exam: ATRAUMATIC, NORMOCEPHALIC - Eye Exam Eye Exam: EOMI - ENT Exam ENT Exam: Mucous Membranes Moist - Respiratory Exam Respiratory Exam: Clear to Auscultation Bilateral. absent: Wheezes - Cardiovascular Exam Cardiovascular Exam: REGULAR RHYTHM, +S1, +S2 - GI/Abdominal Exam GI & Abdominal Exam: Normal Bowel Sounds, Tenderness. absent: Distended - Extremities Exam Extremities exam: Negative for: calf tenderness, pedal edema - Neurological Exam Neurological exam: Alert, Oriented x3 - Psychiatric Exam Psychiatric exam: Normal Mood - Skin Skin Exam: Dry, Warm Results - Vital Signs Recent Vital Signs: Last Vital Signs Temp 98.2 F 01/26/18 13:33 Pulse 62 01/26/18 13:33 Resp 20 01/26/18 13:33 BP 144/60 01/26/18 13:33 Pulse Ox 97 01/26/18 13:33 - Labs Result Diagrams: 01/27/18 06:00 01/27/18 06:00 Labs: Laboratory Results - last 24 hr 01/25/18 01/25/18 01/25/18 22:31 23:55 23:55 WBC RBC Hgb Hct MCV MCH MCHC RDW Plt Count MPV Gran % Lymph % (Auto) [place] % (Auto) Eos % (Auto) Baso % (Auto) Gran # Lymph # (Auto) [place] # (Auto) Eos # (Auto) Baso # (Auto) PT INR APTT 31.1 Sodium Potassium Chloride Carbon Dioxide Anion Gap BUN Creatinine Est GFR ( Amer) Est GFR (Non-Af Amer) POC Glucose (mg/dL) 165 H Random Glucose 155 H Hemoglobin A1c Calcium Triglycerides Cholesterol LDL Cholesterol Direct HDL Cholesterol Free T4 TSH 3rd Generation 01/26/18 01/26/18 01/26/18 07:00 07:00 07:00 WBC 9.1 D RBC 3.84 Hgb 11.2 L Hct 32.6 L MCV 84.9 MCH 29.2 MCHC 34.4 RDW 13.0 Plt Count 129 MPV 10.7 Gran % 72.8 H Lymph % (Auto) 12.6 L [place] % (Auto) 12.6 H Eos % (Auto) 1.8 Baso % (Auto) 0.2 Gran # 6.61 H Lymph # (Auto) 1.1 L [place] # (Auto) 1.1 H Eos # (Auto) 0.2 Baso # (Auto) 0.02 PT 14.5 H INR 1.26 APTT 29.9 Sodium 140 Potassium 4.3 Chloride 105 Carbon Dioxide 26 Anion Gap 13 BUN 25 H Creatinine 1.6 H Est GFR ( Amer) 53 Est GFR (Non-Af Amer) 44 POC Glucose (mg/dL) Random Glucose 138 H Hemoglobin A1c Calcium 9.2 Triglycerides 95 Cholesterol 56 L LDL Cholesterol Direct < 30 HDL Cholesterol 21 L Free T4 TSH 3rd Generation 01/26/18 01/26/18 07:00 07:00 WBC RBC Hgb Hct MCV MCH MCHC RDW Plt Count MPV Gran % Lymph % (Auto) [place] % (Auto) Eos % (Auto) Baso % (Auto) Gran # Lymph # (Auto) [place] # (Auto) Eos # (Auto) Baso # (Auto) PT INR APTT Sodium Potassium Chloride Carbon Dioxide Anion Gap BUN Creatinine Est GFR ( Amer) Est GFR (Non-Af Amer) POC Glucose (mg/dL) Random Glucose Hemoglobin A1c 8.9 H Calcium Triglycerides Cholesterol LDL Cholesterol Direct HDL Cholesterol Free T4 4.07 H TSH 3rd Generation < 0.02 L Assessment & Plan - Assessment and Plan (Free Text) Assessment: 62 year old male with PMHx of hypertension, Afib, PAD, GERD, DM II, CAD s/p stent placement in October, CVA , and CKD presents with acute appendicitis, found to be hyperthyroid. Patient currently NPO for surgery Started methimazole 10mg Q8H Ordered thyroglobulin, TSI and Thyroidperoxidase Replete electrolytes as needed Serial CMPs and thyroid studies Follow up surgery recs Cont to monitor Case and plans was reviewed and discussed with Dr Edmonds. Darwin Harper, PGY3
[2018-01-26] MEDS ORDERED: Neostigmine Methylsulfate 3mg/3ml Syringe IV ONE ×2 (15:17→15:18)
[2018-01-26] MEDS ORDERED: Glycopyrrolate 0.2 mg/ml (2ml vial) ONE (15:18)
[2018-01-26] MEDS ORDERED: Bupivacaine 0.5% Inj(30mL) IJ ONE (15:19)
--- NOTE | 2018-01-26 15:45 | PCM.SURG1 ---
Surgeon's Initial Post Op Note - Surgeon's Notes Surgeon: Dr. Chong Cargo Trimmer: Chandra PGY3, Long PGY2 Type of Anesthesia: General Endo Anesthesia Administered By: Dr. Hassan Pre-Operative Diagnosis: Acute appendicitis Operative Findings: Acute appendicitis, retrocecal appendix Post-Operative Diagnosis: Acute appendicitis Operation Performed: laparoscopic converted to open appendectomy Specimen/Specimens Removed: appendix with fecaliths Estimated Blood Loss: EBL {In ML}: 20 Blood Products Given: N/A Drains Used: No Drains Post-Op Condition: Good Date of Surgery/Procedure: 01/26/18 Time of Surgery/Procedure: 15:44
[2018-01-26] MEDS ORDERED: HYDROmorphone 0.5 mg/0.5 ml ISec IVP PRN (15:49)
[2018-01-26] MEDS ORDERED: HYDROmorphone 0.5 mg/0.5 ml ISec ONE (16:22)
--- NOTE | 2018-01-26 18:55 | CON ---
Copied To: Roxy Edmonds MD Attending MD: Roxy Edmonds MD DATE: 01/26/2018 ENDOCRINOLOGY CONSULTATION LOCATION: Room 571, bed 2. HISTORY OF PRESENT ILLNESS: This is a 62-year-old male with known history of type 2 insulin-requiring diabetes presenting here with sudden onset of periumbilical pain localizing to the right lower quadrant and was evaluated to have acute appendicitis confirmed by CAT scan of the abdomen and underwent a laparoscopic appendectomy and then eventual open appendectomy procedure today and is being referred also now for endocrine evaluation because of abnormal thyroid function studies. PAST MEDICAL HISTORY: As mentioned above, history of type 2 insulin-requiring diabetes on a combination of Prandin given as 0.5 mg t.i.d. with glipizide given as 5 mg b.i.d., Basaglar taken as 22 units subcu once daily as given. 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 History of paroxysmal atrial fibrillation, currently on a combination of Plavix and Eliquis medications. He is also currently on amiodarone taken as 100 mg once daily, history of generalized anxiety on anxiolytic medications. FAMILY HISTORY: Positive for diabetes and hypertension. SOCIAL HISTORY: The patient admits to [id number] history of smoking, but quit a few years ago. He has a supportive family otherwise. REVIEW OF SYSTEMS: As mentioned above. Admits to episodic bouts of dizziness and lightheadedness, worse on the day of admission with bifrontal headaches and visual blurring. He also admits to generalized body weakness with suboptimal energy level. No chest pains or palpitations, but admits to progressive shortness of breath especially on exertion. His oral intake has actually been variable with nausea, dyspepsia and anorexia over the last 2 days with supervening periumbilical pain and localizing to the right lower quadrant as noted. Also admits to persistent nocturia. Moreover, also admits to lower extremity painful paresthesias especially nocturnally and has been taking Cymbalta medications as noted. PHYSICAL EXAMINATION: GENERAL: This is an average built male in no apparent distress. VITAL SIGNS: Blood pressure of 140/90, pulse of 70 beats per minute regular, temperature 98, respirations 20. Height is 5 feet 9 inches, weight is 187 pounds. HEENT: Head: Normocephalic. Eyes: Anicteric with pink conjunctivae. Funduscopy not possible at this time. Ears, nose and throat: Otherwise normal. NECK: Supple. Thyroid gland is normal in size. No carotid bruits or cervical adenopathy. CARDIOPULMONARY: There are some adynamic precordium. S1 and S2 is rapid and regular. LUNGS: Clear to auscultation. ABDOMEN: Firm, soft with a dry dressing over the incisional site in the right lower quadrant as noted. Bowel sounds are hypoactive. EXTREMITIES: No peripheral edema. Pulses are diminished peripherally. LABORATORY DATA: His chemistry showed initially BUN of 33, sodium 135, potassium 4.6, chloride 98, CO2 of 25, glucose 303 and creatinine 2. His hemoglobin A1c is 8.9%, which is also elevated and indicative of suboptimal metabolic control of his diabetic condition. His thyroid study showed a free T4 of 4.07 with a TSH of less than 0.02. ASSESSMENT: This is a 62-year-old male with uncontrolled and decompensated type 2 insulin-requiring diabetes presenting here with an acute appendicitis, confirmed not only clinically and radiologically, but also underwent an open appendectomy procedure today as noted. He also has overt hyperthyroidism noted biochemically with underlying constitutional symptoms of the same and the possibility always of amiodarone-induced hyperthyroxinemia has also to be excluded at this point in time, although we also have to confirm the possibility of underlying autoimmune thyroiditis. He also has diabetic microvascular complications of retinopathy, polyneuropathy and nephropathy with diabetic macrovascular complications of cerebrovascular disease with residual left-sided weakness and coronary artery disease with a recent drug-eluting stent placement and concomitant peripheral arterial disease on vasculopathy with previous peripheral stents inserted in the left lower extremity and also a prior left hallux amputation as noted. He also has paroxysmal atrial fibrillation, currently on anticoagulation therapy as noted with concomitant amiodarone medications as given. PLAN OF MANAGEMENT: Concur with insulin dose coverage, using Humalog insulin as a low-dose algorithm especially postoperatively that he is only on a liquid diet as given. We will observe his glycemic fluctuations and once we advance his diet to solid food with expected hyperglycemic accelerations postprandially, then we will switch him over to a more physiologic basal and bolus insulin drug combination as indicated. However, we will start him on a low dose basal insulin with Levemir to be given as 10 units subcu at bedtime daily to start tonight. Moreover, we will start him right away on medical therapy with thiourea i.e. Tapazole given as 10 mg p.o. every 8 hours to start today even if it is n.p.o. and/or a liquid diet. We will obtain thyroid antibodies to include a thyroid peroxidase and thyroglobulin antibody with a thyroid stimulating immunoglobulin to confirm and/or negate the presence of underlying thyroid autoimmunity. We will consider a thyroid ultrasound when he is more clinically stable to screen for subclinical thyroid nodules not clinically palpable at this time. We will obtain serial chemistries and supplement accordingly as needed. We will also obtain serial thyroid studies and adjust his dose regimen accordingly. We will follow. Roxy Edmonds MD : 01/26/2018 17:33:56
--- NOTE | 2018-01-26 20:24 | CON ---
Copied To: Andreina Archer MD Attending MD: Andreina Archer MD DATE: 01/26/2018 REASON FOR DICTATION: Seen for Dr. Del Real. REASON FOR CONSULTATION: Preop evaluation, risk stratification for possible abdominal surgery for acute appendicitis. BRIEF CLINICAL HISTORY: A 62-year-old male with past medical history significant for hypertension, peripheral arterial disease, gastroesophageal reflux, type 2 diabetes, status post stent in the circumflex on , came in yesterday with two days history of abdominal pain, found to be acute appendicitis, possible OR this morning. PAST MEDICAL HISTORY: Significant for coronary artery disease, status post stent in the mid circumflex on 11/08/2017 after having abnormal stress test, history of diabetes, history of CKD, history of peripheral arterial disease, history of renal insufficiency, and history of CVA. SOCIAL HISTORY: Denies smoking. Denies any history of alcohol abuse. PREVIOUS CARDIAC WORKUP: As follows, patient had a cardiac catheterization after having abnormal stress test on 10/29/2017. Stress test dated 10/29/2017 that shows ejection fraction of 58%, possible reversible ischemia, anteroseptal defect. Patient underwent cardiac catheterization by Dr. Lujan on 11/08/2017 and stent deployment in circumflex, 90% stenosis noted. At that time LV ejection fraction recorded normal, EDP was in the range of 10, history of CKD. History of last echo on 04/14/2016 shows ejection fraction of 55%, [id number] mitral regurgitation, trace tricuspid regurgitation. No vegetation or thrombus noted, dated 04/25/2016. By stress test, dated 10/29/2017, EF was reported normal at 58%. CURRENT MEDICATIONS: The patient is taking at home hydralazine 25 mg daily, Prandin 0.5 mg daily, metoprolol succinate one tablet daily, lisinopril 40 mg daily, insulin, glipizide, clopidogrel 75 mg daily, Eliquis 2.5 p.o. b.i.d., atorvastatin, and Xanax. REVIEW OF SYSTEMS: As per HPI. PHYSICAL EXAMINATION: VITAL SIGNS: As follows, height of the patient 5 feet 9 inches, weight of the patient 187 pounds, body mass index 28 kg/sq m. Temperature afebrile, blood pressure 138/72. HEENT: PERRLA. Extraocular muscles intact. NECK: Supple. No carotid bruits or thyromegaly. CHEST: Clear to auscultation. HEART: S1 and S2, regular. ABDOMEN: Soft. EXTREMITIES: Clubbing and cyanosis negative. DIAGNOSTIC DATA: EKG shows normal sinus with rate of 78. No acute ST-T changes noted. LABORATORY DATA: Blood workup are as follows: WBC 9.1, hemoglobin 11.8, hematocrit 32.6, platelet count 129. Chemistry shows sodium 140, potassium 4.2, chloride 105, carbon dioxide 26, anion gap of 13, BUN 25, creatinine 1.6. TSH 0.02. IMPRESSION: A 62-year-old male with past medical history significant for coronary artery disease, status post percutaneous transluminal coronary angioplasty of circumflex on 11/08/2017, history of normal function, history of chronic kidney disease, diabetes, hypertension, hyperlipidemia, history of peripheral arterial disease, history of peripheral intervention, history of cerebrovascular accident with residual from right-sided weakness, admitted with acute appendicitis. Patient is on Plavix and Eliquis, possibly for deep venous thrombosis and peripheral arterial disease. Last Plavix was at 05:00 yesterday and last Eliquis at 05:00 yesterday. Since the acuity of the symptoms, the patient needs to go to the Operating Room to save his life or risk of developing a complication for appendicitis. The patient is okay to go with [id number] risk of underlying comorbidity on anticoagulation, but if the patient can wait for 24 hours, preferably to go sometime late afternoon, by that time, the effect of the Eliquis will wear off. I discussed with patient. I will discuss with the resident. We will follow closely. Continue perioperative beta didier. Family is not sure why the patient is on Eliquis, possibly secondary to, according to , he has poor circulation, history of possibly deep venous thrombosis, history of peripheral arterial disease, but patient is on Plavix because of the recently placed stent in circumflex. RECOMMENDATIONS: As mentioned above, [id number] risk of underlying comorbidity, hold Plavix, hold Eliquis. If the patient is urgent to go, patient can go this afternoon because the effect of the Eliquis will wear off in 24 hours. We will follow closely. We will transfer care tomorrow to Dr. Del Real. Thank you, Dr. Kirkpatrick, for providing us the opportunity in taking care of the patient, Munir Gutierrez. Andreina Archer MD
[2018-01-26] MEDS ORDERED: Morphine 4 mg/ml ISec IM PRN (23:28)
[2018-01-26] MEDS: Morphine 4 mg/ml ISec IVP PRN (23:43)
[2018-01-27] MEDS: Morphine 4 mg/ml ISec IVP PRN ×2 (05:19→12:38)
[2018-01-27] MEDS: metroNIDAZOLE IV 500 mg/100 ml 500 MG/100 ML BAG IVPB SCH ×2 (05:20→14:26)
[2018-01-27 06:41] LABS: BASO # 0.01 K/mm3 (0.0-2.0); BASO % 0.1 % (0.0-3.0); EOS % 0.1 % (1.5-5.0); GRAN # 9.67 (1.4-6.5); GRAN % 78.7 % (50.0-68.0); HEMOGLOBIN 12.2 g/dL (14.0-18.0); LYMPH # 0.8 (1.2-3.4); LYMPH % 6.7 % (22.0-35.0); MEAN CELL VOLUME 84.7 fl (80.0-105.0); MEAN CORPUSCULAR HEMOGLOBIN 29.3 pg (25.0-35.0); MEAN CORPUSCULAR HGB CONC 34.6 g/dl (31.0-37.0); MEAN PLATELET VOLUME 10.7 fl (7.0-11.0); MONO # 1.8 (0.1-0.6); MONO % 14.4 % (1.0-6.0); RBC 4.17 10^6/uL (3.5-6.1); WHITE BLOOD COUNT 12.3 10^3/ul (4.5-11.0)
[2018-01-27] MEDS: cefOXitin Sodium 1 GM in Sodium Chloride 0.9% 100 ML IV SCH ×2 (06:50→12:38)
[2018-01-27 06:51] LABS: INR 1.33; PROTHROMBIN TIME 15.4 SECONDS (9.4-12.5)
[2018-01-27 07:04] LABS: T4 14.6 ug/dL (5.5-11.0)
[2018-01-27 07:20] LABS: ALB/GLOB RATIO 1.2 (1.1-1.8); ALBUMIN 3.2 g/dL (3.0-4.8); ALT/SGPT 27 U/L (7-56); AST/SGOT 17 U/L (17-59); BLOOD UREA NITROGEN 23 mg/dL (7-21); GFR NON-AFRICAN AMERICAN 47; HDL CHOLESTEROL 27 mg/dL (29-60); LDL CHOLESTEROL < 30 mg/dL (0-129)
[2018-01-27] MEDS: Insulin Lispro (humaLOG) LOW Coverage SC SCH ×3 (07:30→16:33)
--- NOTE | 2018-01-27 08:18 | CP.PCM.PN ---
Subjective - Date & Time of Evaluation Date of Evaluation: 01/27/18 Time of Evaluation: 07:00 - Subjective Subjective: General Surgery Note for Dr. Chong Patient seen and examined at bedside. No acute event overnight. He is s/p laparoscopic converted to open appendectomy POD#1. Patient admits to abdominal pain but states controlled with medications. He denies fever/chills and vomiting. He is experiencing some nausea. He does not report flatus or BM yet. He is tolerating liquids. Urine output was 3100 cc over 24 hrs. Manoj drain had 150 cc of serosanguinous output since the OR. He has no complaints at this time. Objective - Vital Signs/Intake and Output Vital Signs (last 24 hours): Temp Pulse Resp BP Pulse Ox 98.8 F 82 18 153/80 H 98 01/27/18 06:00 01/27/18 06:00 01/27/18 06:00 01/27/18 06:00 01/27/18 06:00 Intake and Output: 01/27/18 01/27/18 06:59 18:59 Intake Total 100 Output Total 750 50 Balance -650 -50 - Medications Medications: Current Medications Alprazolam (Xanax) 0.5 mg PO BID [facility] PRN Reason: Protocol Last Admin: 01/26/18 18:53 Dose: 0.5 mg Amiodarone HCl (Cordarone) 100 mg PO DAILY [facility] Last Admin: 01/26/18 10:41 Dose: 100 mg Atorvastatin Calcium (Lipitor) 40 mg PO DIN [facility] Dextrose (Dextrose 50% Inj) 0 ml IV STAT PRN; Protocol PRN Reason: Hypoglycemia Protocol Duloxetine HCl (Cymbalta) 60 mg PO DAILY [facility] Last Admin: 01/26/18 10:41 Dose: 60 mg Hydralazine HCl (Apresoline) 25 mg PO TID [facility] Last Admin: 01/26/18 18:53 Dose: 25 mg Cefoxitin Sodium 1 gm/ Sodium (Chloride) 100 mls @ 100 mls/hr IV Q8H [facility] PRN Reason: Protocol Last Admin: 01/27/18 06:50 Dose: 100 mls/hr Metronidazole (Flagyl) 500 mg in 100 mls @ 100 mls/hr IVPB Q8 [facility] PRN Reason: Protocol Last Admin: 01/27/18 05:20 Dose: 100 mls/hr Dextrose (Dextrose 5% In Water 1000 Ml) 1,000 mls @ 0 mls/hr IV .Q0M PRN; Protocol; Per Protocol PRN Reason: Hypoglycemia Protocol Lactated Ringer's (Lactated Ringer's) 1,000 mls @ 125 mls/hr IV .Q8H [facility] Last Admin: 01/26/18 17:43 Dose: 125 mls/hr Insulin Detemir (Levemir) 14 unit SC HS [facility] Insulin Human Lispro (Humalog Low) 0 units SC ACHS [facility] PRN Reason: Protocol Lisinopril (Zestril) 40 mg PO DAILY [facility] Last Admin: 01/26/18 10:41 Dose: 40 mg Methimazole (Tapazole) 10 mg PO Q8H [facility] Last Admin: 01/27/18 05:21 Dose: 10 mg Metoprolol Succinate (Toprol Xl) 25 mg PO DAILY [facility] Last Admin: 01/26/18 10:41 Dose: 25 mg Morphine Sulfate (Morphine) 2 mg IVP Q4H PRN PRN Reason: Pain, moderate (4-7) Last Admin: 01/26/18 21:59 Dose: 2 mg Morphine Sulfate (Morphine) 4 mg IVP Q4H PRN PRN Reason: Pain, severe (8-10) Last Admin: 01/27/18 05:19 Dose: 4 mg Ondansetron HCl (Zofran Inj) 4 mg IVP Q4H PRN PRN Reason: Nausea/Vomiting Last Admin: 01/27/18 05:32 Dose: 4 mg Pantoprazole Sodium (Protonix Inj) 40 mg IVP DAILY [facility] Last Admin: 01/26/18 10:39 Dose: 40 mg Repaglinide (Prandin) 0.5 mg PO AC [facility] - Labs Labs: 01/27/18 06:00 01/27/18 06:00 PT 15.4 SECONDS (9.4-12.5) H 01/27/18 06:00 INR 1.33 01/27/18 06:00 APTT 29.9 Seconds (25.1-36.5) 01/26/18 07:00 - Constitutional Appears: Non-toxic, No Acute Distress - Head Exam Head Exam: ATRAUMATIC, NORMOCEPHALIC - Eye Exam Eye Exam: EOMI, Normal appearance Pupil Exam: PERRL - ENT Exam ENT Exam: Mucous Membranes Moist - Respiratory Exam Respiratory Exam: NORMAL BREATHING PATTERN - Cardiovascular Exam Cardiovascular Exam: REGULAR RHYTHM - GI/Abdominal Exam GI & Abdominal Exam: Soft, Tenderness (surgical site), Normal Bowel Sounds. absent: Distended, Firm, Guarding, Rebound Additional comments: mildine incision covered with surgical dressing - clean dry and intact manoj drain in place with serosanguinous output - Extremities Exam Extremities Exam: Normal Capillary Refill - Neurological Exam Neurological Exam: Alert, Awake, Oriented x3 - Psychiatric Exam Psychiatric exam: Normal Affect, Normal Mood - Skin Skin Exam: Dry, Intact, Normal Color, Warm Assessment and Plan - Assessment and Plan (Free Text) Assessment: 62 M s/p laparoscopic converted to open appendectomy POD#1 Plan: -CLD, ADAT -DC schroeder, void trial -Continue IV fluids -Continue IV antibiotics -Strict Is & Os -IS/OOB to chair/Ambulation -Monitor for bowel function -Further recommendations as per Dr. Castillo Alves PGY2
--- NOTE | 2018-01-27 09:16 | CP.PCM.PN ---
Subjective - Date & Time of Evaluation Date of Evaluation: 01/27/18 Time of Evaluation: 07:30 - Subjective Subjective: Endocrinology progress note: Patient seen and examined at bedside. No acute events overnight. Pt complains of mild abdominal pain. No other complaints. 12 point ROS was performed and negative other than stated above. Objective - Vital Signs/Intake and Output Vital Signs (last 24 hours): Temp Pulse Resp BP Pulse Ox 98.8 F 82 18 153/80 H 98 01/27/18 06:00 01/27/18 06:00 01/27/18 06:00 01/27/18 06:00 01/27/18 06:00 Intake and Output: 01/27/18 01/27/18 06:59 18:59 Intake Total 100 Output Total 750 50 Balance -650 -50 - Medications Medications: Current Medications Alprazolam (Xanax) 0.5 mg PO BID [facility] PRN Reason: Protocol Last Admin: 01/26/18 18:53 Dose: 0.5 mg Amiodarone HCl (Cordarone) 100 mg PO DAILY [facility] Last Admin: 01/26/18 10:41 Dose: 100 mg Atorvastatin Calcium (Lipitor) 40 mg PO DIN [facility] Dextrose (Dextrose 50% Inj) 0 ml IV STAT PRN; Protocol PRN Reason: Hypoglycemia Protocol Duloxetine HCl (Cymbalta) 60 mg PO DAILY [facility] Last Admin: 01/26/18 10:41 Dose: 60 mg Hydralazine HCl (Apresoline) 25 mg PO TID [facility] Last Admin: 01/26/18 18:53 Dose: 25 mg Cefoxitin Sodium 1 gm/ Sodium (Chloride) 100 mls @ 100 mls/hr IV Q8H [facility] PRN Reason: Protocol Last Admin: 01/27/18 06:50 Dose: 100 mls/hr Metronidazole (Flagyl) 500 mg in 100 mls @ 100 mls/hr IVPB Q8 [facility] PRN Reason: Protocol Last Admin: 01/27/18 05:20 Dose: 100 mls/hr Dextrose (Dextrose 5% In Water 1000 Ml) 1,000 mls @ 0 mls/hr IV .Q0M PRN; Protocol; Per Protocol PRN Reason: Hypoglycemia Protocol Lactated Ringer's (Lactated Ringer's) 1,000 mls @ 125 mls/hr IV .Q8H [facility] Last Admin: 01/26/18 17:43 Dose: 125 mls/hr Insulin Detemir (Levemir) 14 unit SC [facility] Insulin Human Lispro (Humalog Low) 0 units SC [facility] PRN Reason: Protocol Lisinopril (Zestril) 40 mg PO DAILY [facility] Last Admin: 01/26/18 10:41 Dose: 40 mg Methimazole (Tapazole) 10 mg PO Q8H [facility] Last Admin: 01/27/18 05:21 Dose: 10 mg Metoprolol Succinate (Toprol Xl) 25 mg PO DAILY [facility] Last Admin: 01/26/18 10:41 Dose: 25 mg Morphine Sulfate (Morphine) 2 mg IVP Q4H PRN PRN Reason: Pain, moderate (4-7) Last Admin: 01/26/18 21:59 Dose: 2 mg Morphine Sulfate (Morphine) 4 mg IVP Q4H PRN PRN Reason: Pain, severe (8-10) Last Admin: 01/27/18 05:19 Dose: 4 mg Ondansetron HCl (Zofran Inj) 4 mg IVP Q4H PRN PRN Reason: Nausea/Vomiting Last Admin: 01/27/18 05:32 Dose: 4 mg Pantoprazole Sodium (Protonix Inj) 40 mg IVP DAILY [facility] Last Admin: 01/26/18 10:39 Dose: 40 mg Repaglinide (Prandin) 0.5 mg PO [facility] - Labs Labs: 01/27/18 06:00 01/27/18 06:00 PT 15.4 SECONDS (9.4-12.5) H 01/27/18 06:00 INR 1.33 01/27/18 06:00 APTT 29.9 Seconds (25.1-36.5) 01/26/18 07:00 - Constitutional Appears: No Acute Distress - Head Exam Head Exam: ATRAUMATIC, NORMOCEPHALIC - Eye Exam Eye Exam: EOMI - ENT Exam ENT Exam: Mucous Membranes Moist - Respiratory Exam Respiratory Exam: Clear to Ausculation Bilateral - Cardiovascular Exam Cardiovascular Exam: REGULAR RHYTHM, +S1, +S2 - GI/Abdominal Exam GI & Abdominal Exam: Soft, Tenderness - Neurological Exam Neurological Exam: Alert, Awake, Oriented x3 - Psychiatric Exam Psychiatric exam: Normal Mood - Skin Skin Exam: Intact, Warm Assessment and Plan - Assessment and Plan (Free Text) Assessment: 62 year old male with PMHx of hypertension, Afib, PAD, GERD, DM II, CAD s/p stent placement in October, CVA , and CKD presents with acute appendicitis, found to be hyperthyroid. Cont methimazole 10mg Q8H f/u thyroglobulin, TSI and Thyroidperoxidase Started on Prandin 0.5mg AC Cont Levemir 14 units HS and Humalog low dose sliding scale Replete electrolytes as needed Serial CMPs and thyroid studies Follow up surgery recs Case and plans was reviewed and discussed with Dr Edmonds. Darwin Harper, PGY3
[2018-01-27] MEDS: Metoprolol Succinate 25 mg XL Tab PO SCH (09:31)
[2018-01-27] MEDS: Lactated Ringer's 1,000 ML IV SCH ×2 (09:34→16:34)
[2018-01-27] MEDS ORDERED: Acetylcysteine 20% Inhal Soln (4ml) IH PRN (12:26)
[2018-01-27] MEDS ORDERED: Albuterol-Ipratrop 3 mg / 0.5 (3 ml) UD IH PRN (12:26)
--- NOTE | 2018-01-27 13:55 | CP.PCM.PN ---
<Ivan Daniels - Last Filed: 01/27/18 14:10> Subjective - Date & Time of Evaluation Date of Evaluation: 01/27/18 Time of Evaluation: 13:50 - Subjective Subjective: Ivan Daniels D.O PGY-1, Internal Medicine progress note for Dr. Varela Patient is POD #1 and was examined at bedside, no acute overnight events. Patient complains of abdominal pain at the surgery site but he states is controlled with pain medications. Patient did not report bowel movement or flatus yet. Denies fevers, chills, chest pain, shortness of breath, N/V/D. Objective - Vital Signs/Intake and Output Vital Signs (last 24 hours): Temp Pulse Resp BP Pulse Ox 98.8 F 82 22 146/80 96 01/27/18 06:00 01/27/18 13:05 01/27/18 11:52 01/27/18 11:52 01/27/18 11:52 Intake and Output: 01/27/18 01/27/18 06:59 18:59 Intake Total 100 260 Output Total 750 50 Balance -650 210 - Medications Medications: Current Medications Acetylcysteine (Acetylcysteine 20%) 4 ml IH [id number] PRN PRN Reason: Shortness of Breath Last Admin: 01/27/18 12:56 Dose: 4 ml Albuterol/Ipratropium (Duoneb 3 Mg/0.5 Mg (3 Ml) Ud) 3 ml IH [id number] PRN PRN Reason: Shortness of Breath Last Admin: 01/27/18 12:56 Dose: 3 ml Alprazolam (Xanax) 0.5 mg PO BID [facility] PRN Reason: Protocol Last Admin: 01/27/18 09:30 Dose: 0.5 mg Amiodarone HCl (Cordarone) 100 mg PO DAILY [facility] Last Admin: 01/27/18 09:30 Dose: 100 mg Apixaban (Eliquis) 2.5 mg PO BID [facility] PRN Reason: Protocol Atorvastatin Calcium (Lipitor) 40 mg PO DIN [facility] Clopidogrel Bisulfate (Plavix) 75 mg PO DAILY [facility] Dextrose (Dextrose 50% Inj) 0 ml IV STAT PRN; Protocol PRN Reason: Hypoglycemia Protocol Duloxetine HCl (Cymbalta) 60 mg PO DAILY [facility] Last Admin: 01/27/18 09:30 Dose: 60 mg Hydralazine HCl (Apresoline) 25 mg PO TID [facility] Last Admin: 01/27/18 09:29 Dose: 25 mg Cefoxitin Sodium 1 gm/ Sodium (Chloride) 100 mls @ 100 mls/hr IV Q8H [facility] PRN Reason: Protocol Last Admin: 01/27/18 12:38 Dose: 100 mls/hr Metronidazole (Flagyl) 500 mg in 100 mls @ 100 mls/hr IVPB Q8 [facility] PRN Reason: Protocol Last Admin: 01/27/18 05:20 Dose: 100 mls/hr Dextrose (Dextrose 5% In Water 1000 Ml) 1,000 mls @ 0 mls/hr IV .Q0M PRN; Protocol; Per Protocol PRN Reason: Hypoglycemia Protocol Lactated Ringer's (Lactated Ringer's) 1,000 mls @ 125 mls/hr IV .Q8H [facility] Last Admin: 01/27/18 09:34 Dose: 125 mls/hr Insulin Detemir (Levemir) 14 unit SC [facility] Insulin Human Lispro (Humalog Low) 0 units SC [facility] PRN Reason: Protocol Last Admin: 01/27/18 11:39 Dose: Not Given Lisinopril (Zestril) 40 mg PO DAILY [facility] Last Admin: 01/27/18 09:29 Dose: 40 mg Methimazole (Tapazole) 10 mg PO Q8H [facility] Last Admin: 01/27/18 05:21 Dose: 10 mg Metoprolol Succinate (Toprol Xl) 25 mg PO DAILY [facility] Last Admin: 01/27/18 09:31 Dose: 25 mg Morphine Sulfate (Morphine) 2 mg IVP Q4H PRN PRN Reason: Pain, moderate (4-7) Last Admin: 01/26/18 21:59 Dose: 2 mg Morphine Sulfate (Morphine) 4 mg IVP Q4H PRN PRN Reason: Pain, severe (8-10) Last Admin: 01/27/18 12:38 Dose: 4 mg Ondansetron HCl (Zofran Inj) 4 mg IVP Q4H PRN PRN Reason: Nausea/Vomiting Last Admin: 01/27/18 12:38 Dose: 4 mg Pantoprazole Sodium (Protonix Inj) 40 mg IVP DAILY [facility] Last Admin: 01/27/18 09:31 Dose: 40 mg Repaglinide (Prandin) 0.5 mg PO AC [facility] Last Admin: 01/27/18 12:37 Dose: 0.5 mg - Labs Labs: 01/27/18 06:00 01/27/18 06:00 PT 15.4 SECONDS (9.4-12.5) H 01/27/18 06:00 INR 1.33 01/27/18 06:00 APTT 29.9 Seconds (25.1-36.5) 01/26/18 07:00 - Additional Findings Additional findings: - Constitutional Appears: No Acute Distress - Head Exam Head Exam: ATRAUMATIC, NORMAL INSPECTION - Eye Exam Eye Exam: Normal appearance, PERRL - ENT Exam ENT Exam: Mucous Membranes Moist - Respiratory Exam Respiratory Exam: Clear to Ausculation Bilateral. absent: Rales, Rhonchi, Wheezes, Respiratory Distress - Cardiovascular Exam Cardiovascular Exam: REGULAR RHYTHM, +S1, +S2. absent: Gallop, Rubs, Murmur - GI/Abdominal Exam GI & Abdominal Exam: Soft, Tenderness, Normal Bowel Sounds Additional comments: Abdomen tender to palpation around surgical site. Dressing is C/D/I. DANNIE drain is in place, draining 50cc of serosanguinous fluid. - Extremities Exam Extremities Exam: absent: Calf Tenderness, Pedal Edema - Neurological Exam Neurological Exam: Alert, Awake, Oriented x3 - Psychiatric Exam Psychiatric exam: Normal Affect, Normal Mood - Skin Skin Exam: Dry, Intact, Normal Color, Warm Assessment and Plan - Assessment and Plan (Free Text) Assessment: 62 year old male with past medical history of hypertension, PAD, GERD, DM II, CAD s/p stent placement in October, amputation of left toe, stroke 5-6 years ago, admitted for acute appendicitis. Patient is s/p laparoscopic converted to open appendectomy POD#1. Plan: Acute appendicitis, s/p laparoscopic converted to open appendectomy -Abdominal CT: Uncomplicated acute appendicitis with 2 appendicoliths involving the proximal appendix. Incidental and other non-acute findings are described above. The appendix demonstrates moderate diffuse distention, consistent with moderate acute appendicitis. There are multiple intraluminal appendiceal calcifications consistent with appendicoliths. Appendiceal diameter 2.2 cm. There is moderate periappendiceal inflammatory stranding. - Patient is afebrile, WBC: 12.3 - Gu catheter removed today - Strict Is & Os, urine output 3100 cc over 24 hours - Patient is on a liquid diet - Monitor for bowel function - C/w IVF: Lactated ringer 1L at 125 ml/hr - C/w Cefoxitin 1 gm Q8 and flagyl 500 mg Q8 - Morphine 2 mg Q4PRN for pain - Zofran 4 mg Q4PRN for nausea - Chest x-ray revealed one limited patchy airspace disease medial right apex and left perihilar region, remaining lung cunha appear clear - Cardiology, Dr. Archer, cleared pt for surgery History of coronary artery disease s/p stent placement - Restart home anticoagulation- plavix 75mg PO QD and eliquis 2.5mg PO BID - Cardiology, Dr. Archer, consulted for risk stratification due to recent stent placement and on anticoagulation- cleared for surgery - EKG: Normal sinus rhythm, HR: 78 - Continue home amiodarone, atorvastatin, lisinopril, metoprolol succinate Hyperthyroroidism - TSH: <0.02 - Free T4: 4.07 - Endocrinology consulted, Dr. Edmonds - Started Methimazole 10mg PO Q8 History of Hypertension - Continue home amiodarone, apresoline, lisinopril, metoprolol - Continue to monitor History of Diabetes Mellitus Type II - HgbA1c is 8.9 - Low dose sliding scale insulin started - ACHS accuchecks Chronic Kidney Disease stage III - Likely 2/2 to diabetes mellitus type II - BUN/Cr: 23/1.5. Creatinine was 1.9 on 11/08/17. - Avoid nephrotoxins, IV contrast. - Continue to monitor History of depression and anxiety - Continue with home cymbalta and xanax DVT prophylaxis: on home eliquis and plavix GI prophylaxis: protonix 40 mg daily Patient case reviewed with and plan approved by attending physician, Dr. Varela <Giselle Varela - Last Filed: 01/27/18 15:52> Objective - Vital Signs/Intake and Output Vital Signs (last 24 hours): Temp Pulse Resp BP Pulse Ox 98.8 F 82 22 146/80 96 01/27/18 06:00 01/27/18 13:05 01/27/18 11:52 01/27/18 11:52 01/27/18 11:52 Intake and Output: 01/27/18 01/27/18 06:59 18:59 Intake Total 100 260 Output Total 750 50 Balance -650 210 - Medications Medications: Current Medications Acetylcysteine (Acetylcysteine 20%) 4 ml IH [id number] PRN PRN Reason: Shortness of Breath Last Admin: 01/27/18 12:56 Dose: 4 ml Albuterol/Ipratropium (Duoneb 3 Mg/0.5 Mg (3 Ml) Ud) 3 ml IH [id number] PRN PRN Reason: Shortness of Breath Last Admin: 01/27/18 12:56 Dose: 3 ml Alprazolam (Xanax) 0.5 mg PO BID [facility] PRN Reason: Protocol Last Admin: 01/27/18 09:30 Dose: 0.5 mg Amiodarone HCl (Cordarone) 100 mg PO DAILY [facility] Last Admin: 01/27/18 09:30 Dose: 100 mg Apixaban (Eliquis) 2.5 mg PO BID [facility] PRN Reason: Protocol Atorvastatin Calcium (Lipitor) 40 mg PO DIN [facility] Clopidogrel Bisulfate (Plavix) 75 mg PO DAILY [facility] Dextrose (Dextrose 50% Inj) 0 ml IV STAT PRN; Protocol PRN Reason: Hypoglycemia Protocol Duloxetine HCl (Cymbalta) 60 mg PO DAILY [facility] Last Admin: 01/27/18 09:30 Dose: 60 mg Hydralazine HCl (Apresoline) 25 mg PO TID [facility] Last Admin: 01/27/18 09:29 Dose: 25 mg Cefoxitin Sodium 1 gm/ Sodium (Chloride) 100 mls @ 100 mls/hr IV Q8H [facility] PRN Reason: Protocol Last Admin: 01/27/18 12:38 Dose: 100 mls/hr Metronidazole (Flagyl) 500 mg in 100 mls @ 100 mls/hr IVPB Q8 [facility] PRN Reason: Protocol Last Admin: 01/27/18 14:26 Dose: 100 mls/hr Dextrose (Dextrose 5% In Water 1000 Ml) 1,000 mls @ 0 mls/hr IV .Q0M PRN; Protocol; Per Protocol PRN Reason: Hypoglycemia Protocol Lactated Ringer's (Lactated Ringer's) 1,000 mls @ 125 mls/hr IV .Q8H [facility] Last Admin: 01/27/18 09:34 Dose: 125 mls/hr Insulin Detemir (Levemir) 14 unit SC HS [facility] Insulin Human Lispro (Humalog Low) 0 units SC [facility] PRN Reason: Protocol Last Admin: 01/27/18 11:39 Dose: Not Given Lisinopril (Zestril) 40 mg PO DAILY [facility] Last Admin: 01/27/18 09:29 Dose: 40 mg Methimazole (Tapazole) 10 mg PO Q8H [facility] Last Admin: 01/27/18 05:21 Dose: 10 mg Metoprolol Succinate (Toprol Xl) 25 mg PO DAILY [facility] Last Admin: 01/27/18 09:31 Dose: 25 mg Morphine Sulfate (Morphine) 2 mg IVP Q4H PRN PRN Reason: Pain, moderate (4-7) Last Admin: 01/26/18 21:59 Dose: 2 mg Ondansetron HCl (Zofran Inj) 4 mg IVP Q4H PRN PRN Reason: Nausea/Vomiting Last Admin: 01/27/18 12:38 Dose: 4 mg Pantoprazole Sodium (Protonix Inj) 40 mg IVP DAILY [facility] Last Admin: 01/27/18 09:31 Dose: 40 mg Repaglinide (Prandin) 2 mg PO AC [facility] - Labs Labs: 01/27/18 06:00 01/27/18 06:00 PT 15.4 SECONDS (9.4-12.5) H 01/27/18 06:00 INR 1.33 01/27/18 06:00 APTT 29.9 Seconds (25.1-36.5) 01/26/18 07:00 Attending/Attestation - Attestation I have personally seen and examined this patient.: Yes I have fully participated in the care of the patient.: Yes I have reviewed all pertinent clinical information, including history, physical exam and plan: Yes Notes (Text): 01/27/18 15:46 62 year old male with past medical history of CAD, hypertension, and diabetes who presented with abdominal pain found to have acute appendicitis. He is s/p laparoscopic converted to open appendectomy POD #1. Surgery is following. He is on liquid diet. Today he complains of mild dyspnea. VSS. Encouraged incentive spirometry. CXR is ordered. Endocrinology is following for hyperthyroidism. He is on methimazole. Family is at bedside and questions were answered. Giselle Varela MD Hospitalist.
--- NOTE | 2018-01-27 15:05 | PN ---
Copied To: Roxy Edmonds MD Attending MD: Roxy Edmonds MD DATE: 01/27/2018 ENDOCRINOLOGY FOLLOW UP NOTE LOCATION: Room 571. HISTORY OF PRESENT ILLNESS: This is a 62-year-old male with recent uncontrolled type 2 insulin-requiring diabetes, presenting here with sudden onset of periumbilical pain and evaluated to have an acute appendicitis and underwent an open appendectomy procedure yesterday and is currently on a liquid diet as noted today. His glycemic levels are fluctuating and have ranged from 251-267 mg/dL. His chemistry showed a BUN of 23, sodium 141, potassium 4.3, chloride 106, CO2 of 23, glucose 235 and creatinine 1.5. His hemoglobin A1c is 8.8%. His thyroid study showed T4 of 14.6 mcg/dL with a TSH of less than 0.02 and a free T4 of 4.80. ASSESSMENT: This is a 62-year-old male with uncontrolled and decompensated type 2 insulin-requiring diabetes presenting here with an acute appendicitis and underwent an open appendectomy procedure and is currently also being followed closely for metabolic management. He also has overt hyperthyroidism noted both historically, clinically and biochemically, most likely related to underlying autoimmune thyroiditis. However, he is currently on amiodarone, which has a very high iodine content and has been reported to cause also the so-called amiodarone-induced thyrotoxicosis. He has underlying cardiac tachyarrhythmias and currently is controlled hemodynamically on amiodarone therapy as noted. He also has diabetic microvascular complications of retinopathy, polyneuropathy and nephropathy with macrovascular complications of cerebrovascular disease with left-sided weakness and coronary artery disease with a stent placement and also underlying peripheral arterial disease and vasculopathy with recent stent placements in the left lower extremity as noted. PLAN OF MANAGEMENT: We will continue the Tapazole medication given as 10 mg p.o. every 8 hours while inpatient at this time and we will obtain serial thyroid studies and titrate his dose regimen accordingly. We will also increase his basal insulin with Levemir to be given at 14 units subcu at bedtime daily to start tonight. We will continue the Prandin given at a higher dose of 2 mg p.o. t.i.d. before meals as ordered. We will consider the addition of glipizide given as 5 or 10 mg b.i.d. as his oral intake is advanced to solid food. We will obtain serial chemistries and supplement accordingly as needed. We will follow. Roxy Edmonds MD
--- NOTE | 2018-01-27 15:37 | RAD ---
Date of service: 01/27/2018 HISTORY: shortness of breath COMPARISON: Portable chest 01/26/2018. TECHNIQUE: Chest PA and lateral FINDINGS: LUNGS: Increasing density at the left perihilar distribution may reflect superimposed infiltrate overlying ground-glass opacity seen in prior chest CT 09/17/2017. No additional infiltrate otherwise evident. This is a mild finding. Postop changes again noted right apex. PLEURA: No significant pleural effusion identified. No pneumothorax apparent. CARDIOVASCULAR: Normal. OSSEOUS STRUCTURES: No significant abnormalities. VISUALIZED UPPER ABDOMEN: Normal. OTHER FINDINGS: None. IMPRESSION: Potential limited infiltrate overlie ground-glass opacity left perihilar region with no additional potential interval infiltrate appreciated. This area is stable in appearance in the interval. No pleural effusion or pneumothorax bilaterally. Postop changes again noted right apex.
[2018-01-27] MEDS: Morphine 2 mg/ml ISec IVP PRN ×2 (18:02→22:01)
[2018-01-27] MEDS ORDERED: Insulin Detemir 100 units/ml Vial (Levemir) SC SCH (22:00)
[2018-01-27] MEDS ORDERED: Benzocaine/Menthol (Cepacol) Lozenge MT PRN (23:05)
[2018-01-28] MEDS: Morphine 2 mg/ml ISec IVP PRN (04:33)
[2018-01-28 06:51] LABS: BASO # 0.01 K/mm3 (0.0-2.0); BASO % 0.1 % (0.0-3.0); EOS # 0.2 (0.0-0.7); GRAN # 7.5 (1.4-6.5); GRAN % 76.1 % (50.0-68.0); LYMPH # 0.6 (1.2-3.4); LYMPH % 6.2 % (22.0-35.0); MEAN CELL VOLUME 85.2 fl (80.0-105.0); MEAN CORPUSCULAR HEMOGLOBIN 28.6 pg (25.0-35.0); MEAN CORPUSCULAR HGB CONC 33.5 g/dl (31.0-37.0); MEAN PLATELET VOLUME 10.7 fl (7.0-11.0); MONO # 1.5 (0.1-0.6); MONO % 15.6 % (1.0-6.0); RBC 3.85 10^6/uL (3.5-6.1); WHITE BLOOD COUNT 9.9 10^3/ul (4.5-11.0)
[2018-01-28 07:20] LABS: ALB/GLOB RATIO 1.1 (1.1-1.8); ALBUMIN 3.1 g/dL (3.0-4.8); CALCIUM 9.1 mg/dL (8.4-10.5)
[2018-01-28 07:36] VITALS: RESP 20
--- NOTE | 2018-01-28 08:02 | CP.PCM.PN ---
Subjective - Date & Time of Evaluation Date of Evaluation: 01/28/18 Time of Evaluation: 07:30 - Subjective Subjective: General Surgery Progress Note for Dr. Chong Patient was seen and examined at bedside this AM, s/p laparoscopic converted to open appendectomy POD #2. No acute events reported overnight. Abdominal pain has improved. Tolerating diet well, endorses having BM overnight. Adequate urine output overnight on void trial. No nausea, vomiting, diarrhea, constipation, chest pain, or SOB. Objective - Vital Signs/Intake and Output Vital Signs (last 24 hours): Temp Pulse Resp BP Pulse Ox 98.4 F 82 20 133/77 98 01/28/18 06:00 01/28/18 06:00 01/28/18 06:00 01/28/18 06:00 01/28/18 06:00 Intake and Output: 01/28/18 01/28/18 06:59 18:59 Intake Total 360 Output Total 970 Balance -610 - Medications Medications: Current Medications Acetylcysteine (Acetylcysteine 20%) 4 ml IH [id number] PRN PRN Reason: Shortness of Breath Last Admin: 01/27/18 12:56 Dose: 4 ml Albuterol/Ipratropium (Duoneb 3 Mg/0.5 Mg (3 Ml) Ud) 3 ml IH [id number] PRN PRN Reason: Shortness of Breath Last Admin: 01/27/18 12:56 Dose: 3 ml Alprazolam (Xanax) 0.5 mg PO BID [facility] PRN Reason: Protocol Last Admin: 01/27/18 18:02 Dose: 0.5 mg Amiodarone HCl (Cordarone) 100 mg PO DAILY [facility] Last Admin: 01/27/18 09:30 Dose: 100 mg Apixaban (Eliquis) 2.5 mg PO BID [facility] PRN Reason: Protocol Last Admin: 01/27/18 18:55 Dose: Not Given Atorvastatin Calcium (Lipitor) 40 mg PO DIN [facility] Last Admin: 01/27/18 16:31 Dose: 40 mg Benzocaine/Menthol (Cepacol Sore Throat) 1 macie MT Q2H PRN PRN Reason: Sore Throat Last Admin: 01/28/18 06:13 Dose: 1 macie Clopidogrel Bisulfate (Plavix) 75 mg PO DAILY [facility] Last Admin: 01/27/18 16:30 Dose: 75 mg Dextrose (Dextrose 50% Inj) 0 ml IV STAT PRN; Protocol PRN Reason: Hypoglycemia Protocol Duloxetine HCl (Cymbalta) 60 mg PO DAILY [facility] Last Admin: 01/27/18 09:30 Dose: 60 mg Hydralazine HCl (Apresoline) 25 mg PO TID [facility] Last Admin: 01/27/18 18:55 Dose: Not Given Dextrose (Dextrose 5% In Water 1000 Ml) 1,000 mls @ 0 mls/hr IV .Q0M PRN; Protocol; Per Protocol PRN Reason: Hypoglycemia Protocol Lactated Ringer's (Lactated Ringer's) 1,000 mls @ 125 mls/hr IV .Q8H [facility] Last Admin: 01/27/18 16:34 Dose: 125 mls/hr Ampicillin Sodium/Sulbactam (Sodium 3 gm/ Sodium Chloride) 100 mls @ 200 mls/ hr IVPB Q6 [facility] PRN Reason: Protocol Last Admin: 01/28/18 06:14 Dose: 200 mls/hr Insulin Detemir (Levemir) 20 unit SC [facility] Insulin Human Lispro (Humalog Low) 0 units SC [facility] PRN Reason: Protocol Last Admin: 01/27/18 16:33 Dose: 2 unit Insulin Human Lispro (Humalog) 4 units SC [facility] Lisinopril (Zestril) 40 mg PO DAILY [facility] Last Admin: 01/27/18 09:29 Dose: 40 mg Methimazole (Tapazole) 10 mg PO Q8H [facility] Last Admin: 01/28/18 06:15 Dose: 10 mg Metoprolol Succinate (Toprol Xl) 25 mg PO DAILY [facility] Last Admin: 01/27/18 09:31 Dose: 25 mg Morphine Sulfate (Morphine) 2 mg IVP Q4H PRN PRN Reason: Pain, moderate (4-7) Last Admin: 01/28/18 04:33 Dose: 2 mg Ondansetron HCl (Zofran Inj) 4 mg IVP Q4H PRN PRN Reason: Nausea/Vomiting Last Admin: 01/27/18 12:38 Dose: 4 mg Pantoprazole Sodium (Protonix Inj) 40 mg IVP DAILY [facility] Last Admin: 01/27/18 09:31 Dose: 40 mg Repaglinide (Prandin) 2 mg PO [facility] Last Admin: 01/27/18 16:32 Dose: 2 mg - Labs Labs: 01/28/18 05:45 01/28/18 05:45 PT 15.4 SECONDS (9.4-12.5) H 01/27/18 06:00 INR 1.33 01/27/18 06:00 APTT 29.9 Seconds (25.1-36.5) 01/26/18 07:00 - Constitutional Appears: Non-toxic, No Acute Distress - Head Exam Head Exam: ATRAUMATIC, NORMAL INSPECTION, NORMOCEPHALIC - Eye Exam Eye Exam: Normal appearance - Respiratory Exam Respiratory Exam: NORMAL BREATHING PATTERN - Cardiovascular Exam Cardiovascular Exam: RRR, +S1, +S2 - GI/Abdominal Exam GI & Abdominal Exam: Soft, Tenderness (Mild TTP at surgical site), Normal Bowel Sounds. absent: Distended, Firm, Guarding, Rigid, Rebound Additional comments: mildine incision covered with surgical dressing - clean dry and intact manoj drain in place with serosanguinous output - Extremities Exam Extremities Exam: Normal Inspection - Neurological Exam Neurological Exam: Alert, Awake, Oriented x3 - Psychiatric Exam Psychiatric exam: Normal Affect, Normal Mood - Skin Skin Exam: Dry, Intact, Normal Color, Warm Assessment and Plan - Assessment and Plan (Free Text) Assessment: 62 yo M s/p laparoscopic converted to open appendectomy POD #2 Plan: -advanced diet to heart healthy soft -continue w/ IV fluids -continue w/ IV abxs -monitor Is/Os -continue monitoring BM -Further recommendations as per Dr. Castillo Phan, PGY-1
[2018-01-28] MEDS: Insulin Lispro 1 UNITS/0.01 ML SC SCH ×3 (08:16→17:16)
[2018-01-28] MEDS: Insulin Lispro (humaLOG) LOW Coverage SC SCH ×3 (08:17→17:16)
[2018-01-28] MEDS: Metoprolol Succinate 25 mg XL Tab PO SCH (09:41)
--- NOTE | 2018-01-28 10:43 | CON ---
Copied To: Juan Lujan MD Attending MD: Juan Lujan MD DATE: 01/28/2018 CARDIOLOGY CONSULTATION HISTORY: The patient is a 62-year-old male, who presented with an acute appendicitis and underwent surgery, which was uncomplicated. The patient's past medical history includes diabetes mellitus, hypertension and hypercholesterolemia. In 11/2017, the patient underwent cardiac catheterization, which he underwent successful PTCA and stent of a 90% circumflex artery with a drug-eluting stent. His LV function is normal. In addition, the patient has chronic atrial fibrillation with a history of CVA in the past and he was treated with Eliquis. Currently, the patient is sitting in a chair, in no acute distress. REVIEW OF SYSTEMS: Unremarkable other than the pain from surgery. PHYSICAL EXAMINATION: VITAL SIGNS: On physical exam, the blood pressure is 132/78, the heart rate is in the 80s, normal sinus rhythm. NECK: Negative JVD. LUNGS: Without rales. HEART: Reveals S1, S2. EXTREMITIES: Without edema. LABORATORY DATA: Laboratories include an EKG that shows no acute changes. The hemoglobin is 11, BUN and creatinine are 25 and 1.6, glucose is 191. IMPRESSION: 1. Status post emergency surgery for appendicitis. 2. Stable angina. 3. History of percutaneous transluminal coronary angioplasty and stent with a drug-eluting stent. 4. Diabetes mellitus. 5. Paroxysmal atrial fibrillation. 6. History of cerebrovascular accident. PLAN: Given these findings, the patient has been restarted on his Plavix. Has been restarted on his Plavix since his surgery. We would advise to restart him on his Eliquis as soon as possible given his history of paroxysmal AFib with documented strokes in the past. Currently, the patient is hemodynamically stable. Juan Lujan MD
[2018-01-28] MEDS ORDERED: guaiFENesin-DM 600-30 mg ER Tab PO PRN (12:23)
[2018-01-28] MEDS: Lactated Ringer's 1,000 ML IV SCH (12:55)
--- NOTE | 2018-01-28 13:40 | PN ---
Copied To: Roxy Edmonds MD Attending MD: Roxy Edmonds MD DATE: 01/28/2018 ENDO FOLLOWUP NOTE LOCATION: In room 571. SUBJECTIVE: This is a 62-year-old male with recent uncontrolled type 2 insulin-requiring diabetes, now being followed closely for metabolic management. He underwent a recent open appendectomy as he presented here with acute appendicitis and is now being followed closely for metabolic management. His glycemic levels are fluctuating, but improved and the glucose values have ranged from 203-213 mg/dL. His chemistries today showed a BUN of 25, sodium 140, potassium 3.9, chloride 105, CO2 of 25, glucose 191 and creatinine 1.6. So at this time, we will continue the modified basal and bolus insulin regimen and we added Humalog given as 4 units subcu t.i.d. before meals to start this morning as ordered. We will titrate incrementally as indicated to optimize metabolic control. We will also titrate his basal insulin to a higher dose of Levemir given as 20 units subcu at bedtime daily to start tonight. We will modify the coverage scale to obviate hypoglycemia and detailed orders have been given. We will obtain serial chemistries and supplement accordingly as needed. We will also continue the Tapazole medications given as 10 mg p.o. every 8 hours as ordered for management of recent onset of hyperthyroidism. Just to add, his latest thyroid study showed a T4 of 14.6 with a free T4 of 4.8 and a TSH of less than 0.02. We will obtain serial thyroid studies and titrate his dose regimen accordingly. Roxy Edmonds MD
[2018-01-28 15:01] VITALS: BP 156/87; PULSE 104; TEMP 97.5; O2SAT 97
--- NOTE | 2018-01-28 16:40 | CP.PCM.DIS ---
<Ivan Daniels - Last Filed: 01/28/18 16:46> Provider - Provider Date of Admission: 01/25/18 21:19 Attending physician: Giselle Varela MD Primary care physician: Evelyn Landin MD Time Spent in preparation of Discharge (in minutes): 45 Diagnosis - Discharge Diagnosis (1) Acute appendicitis Status: Resolved Priority: Medium (2) CAD (coronary artery disease) Status: Chronic Priority: Medium (3) Hyperthyroidism Status: Chronic Priority: Medium (4) HTN (hypertension) Status: Chronic Priority: Medium (5) Diabetes mellitus Status: Chronic Priority: Medium (6) CKD (chronic kidney disease) Status: Chronic Priority: Medium (7) Depression Status: Chronic Priority: Medium (8) Anxiety Status: Chronic Priority: Medium (9) Atrial fibrillation Status: Chronic Priority: Medium Hospital Course - Lab Results Lab Results: Most Recent Lab Values WBC 9.9 10^3/ul (4.5-11.0) 01/28/18 05:45 RBC 3.85 10^6/uL (3.5-6.1) 01/28/18 05:45 Hgb 11.0 g/dL (14.0-18.0) L 01/28/18 05:45 Hct 32.8 % (42.0-52.0) L 01/28/18 05:45 MCV 85.2 fl (80.0-105.0) 01/28/18 05:45 MCH 28.6 pg (25.0-35.0) 01/28/18 05:45 MCHC 33.5 g/dl (31.0-37.0) 01/28/18 05:45 RDW 13.0 % (11.5-14.5) 01/28/18 05:45 Plt Count 169 10^3/uL (120.0-450.0) 01/28/18 05:45 MPV 10.7 fl (7.0-11.0) 01/28/18 05:45 Gran % 76.1 % (50.0-68.0) H 01/28/18 05:45 Lymph % (Auto) 6.2 % (22.0-35.0) L 01/28/18 05:45 [place] % (Auto) 15.6 % (1.0-6.0) H 01/28/18 05:45 Eos % (Auto) 2.0 % (1.5-5.0) 01/28/18 05:45 Baso % (Auto) 0.1 % (0.0-3.0) 01/28/18 05:45 Gran # 7.50 (1.4-6.5) H 01/28/18 05:45 Lymph # (Auto) 0.6 (1.2-3.4) L 01/28/18 05:45 [place] # (Auto) 1.5 (0.1-0.6) H 01/28/18 05:45 Eos # (Auto) 0.2 (0.0-0.7) 01/28/18 05:45 Baso # (Auto) 0.01 K/mm3 (0.0-2.0) 01/28/18 05:45 PT 15.4 SECONDS (9.4-12.5) H 01/27/18 06:00 INR 1.33 01/27/18 06:00 APTT 29.9 Seconds (25.1-36.5) 01/26/18 07:00 Sodium 140 mmol/L (132-148) 01/28/18 05:45 Potassium 3.9 mmol/L (3.6-5.0) 01/28/18 05:45 Chloride 105 mmol/L (98-107) 01/28/18 05:45 Carbon Dioxide 25 mmol/L (21-33) 01/28/18 05:45 Anion Gap 14 (10-20) 01/28/18 05:45 BUN 25 mg/dL (7-21) H 01/28/18 05:45 Creatinine 1.6 mg/dl (0.8-1.5) H 01/28/18 05:45 Est GFR ( Amer) 53 01/28/18 05:45 Est GFR (Non-Af Amer) 44 01/28/18 05:45 POC Glucose (mg/dL) 200 mg/dL (65-110) H 01/28/18 15:58 Random Glucose 191 mg/dL (70-110) H 01/28/18 05:45 Hemoglobin A1c 8.8 % (4.2-6.5) H 01/27/18 06:00 Calcium 9.1 mg/dL (8.4-10.5) 01/28/18 05:45 Magnesium 1.9 mg/dL (1.7-2.2) 01/27/18 06:00 Total Bilirubin 0.6 mg/dL (0.2-1.3) 01/28/18 05:45 AST 23 U/L (17-59) 01/28/18 05:45 ALT 23 U/L (7-56) 01/28/18 05:45 Alkaline Phosphatase 70 U/L (38-126) 01/28/18 05:45 Troponin I < 0.01 ng/mL 01/25/18 17:20 Total Protein 5.9 g/dL (5.8-8.3) 01/28/18 05:45 Albumin 3.1 g/dL (3.0-4.8) 01/28/18 05:45 Globulin 2.8 gm/dL 01/28/18 05:45 Albumin/Globulin Ratio 1.1 (1.1-1.8) 01/28/18 05:45 Triglycerides 49 mg/dL (35-160) 01/27/18 06:00 Cholesterol < 50 mg/dL (130-200) L 01/27/18 06:00 LDL Cholesterol Direct < 30 mg/dL (0-129) 01/27/18 06:00 HDL Cholesterol 27 mg/dL (29-60) L 01/27/18 06:00 Lipase 46 U/L (23-300) 01/25/18 17:20 Procalcitonin 1.90 NG/ML (0.19-0.49) H 01/28/18 05:45 Free T4 4.80 ng/dL (0.78-2.19) H 01/27/18 06:00 Thyroxine (T4) 14.6 ug/dL (5.5-11.0) H 01/27/18 06:00 TSH 3rd Generation < 0.02 mIU/mL (0.46-4.68) L 01/27/18 06:00 Urine Color Yellow (YELLOW) 01/25/18 19:08 Urine Appearance Sl cloudy (CLEAR) 01/25/18 19:08 Urine pH 6.0 (4.7-8.0) 01/25/18 19:08 Ur Specific [place] 1.025 (1.005-1.035) 01/25/18 19:08 Urine Protein >=300 mg/dL (<30 mg/dL) H 01/25/18 19:08 Urine Glucose (UA) >=1000 mg/dL (NEGATIVE) 01/25/18 19:08 Urine Ketones Negative mg/dL (NEGATIVE) 01/25/18 19:08 Urine Blood Negative (NEGATIVE) 01/25/18 19:08 Urine Nitrate Negative (NEGATIVE) 01/25/18 19:08 Urine Bilirubin Negative (NEGATIVE) 01/25/18 19:08 Urine Urobilinogen 0.2 E.U./dL (<1 E.U./dL) 01/25/18 19:08 Ur Leukocyte Esterase Negative Donya/uL (NEGATIVE) 01/25/18 19:08 Urine RBC Negative /hpf (0-2) 01/25/18 19:08 Urine WBC 0 - 2 /hpf (0-6) 01/25/18 19:08 Urine Bacteria Trace (NEG) 01/25/18 19:08 Fine Granular Casts 0 - 2 /hpf (0-2) 01/25/18 19:08 Blood Type O POSITIVE 01/25/18 20:20 Antibody Screen Negative 01/25/18 20:20 Crossmatch See Detail 01/25/18 20:20 BBK History Checked Patient has bt 01/25/18 20:20 - Hospital Course Hospital Course: 62 year old male with past medical history of hypertension, PAD, GERD, DM II, atrial fibrillation, CAD s/p stent placement in October, amputation of left toe, stroke 5-6 years ago, admitted for acute appendicitis. Patient is s/p laparoscopic converted to open appendectomy. Patient was treated with Acetylcysteine, duoneb, xanax, amiodarone, eliquis, lipitor, plavix, cymbalta, hydralazine, cefoxitin, metronidazole, insulin, lisinopril, tapazole, toprol XL , morphine, zofran, protonix, and prandin. During the course of his hospital stay, he got an EKG that showed normal sinus rhythm at [address] showed uncomplicated acute appendicitis with 2 appendicoliths involving the proximal appendix. Incidental and other non-acute findings are described above. The appendix demonstrates moderate diffuse distention, consistent with moderate acute appendicitis. There are multiple intraluminal appendiceal calcifications consistent with appendicoliths. Appendiceal diameter 2.2 cm. There is moderate periappendiceal inflammatory stranding. Chest xray showed one limited patchy airspace disease medial right apex and left perihilar region, remaining lung cunha appear clear. Labs revealed that patient has hyperthyroidism with TSH: < 0.02 and free T4: 4.07. Endocrinology (Dr. Edmonds) started patient on methimazole since the patient has hyperthyroidism. Cardiology (Dr. Archer) recommended patient to continue home amiodarone, atorvastatin, lisinopril, and metoprolol succinate. Medicine reconciliation was done and TCU staff was given instructions to continue patient's home medications. Patient was instructed to follow up with primary care doctor within one week of discharge from TCU. Patient further informed to return to the ED for worsening of symptoms.Patient is now medically optimized for discharge to TCU. Discharge Exam - Head Exam Head Exam: ATRAUMATIC, NORMAL INSPECTION, NORMOCEPHALIC - Additional Findings Additional findings: - Constitutional Appears: No Acute Distress - Head Exam Head Exam: ATRAUMATIC, NORMAL INSPECTION - Eye Exam Eye Exam: Normal appearance, PERRL - ENT Exam ENT Exam: Mucous Membranes Moist - Respiratory Exam Respiratory Exam: Clear to Ausculation Bilateral. absent: Rales, Rhonchi, Wheezes, Respiratory Distress - Cardiovascular Exam Cardiovascular Exam: REGULAR RHYTHM, +S1, +S2. absent: Gallop, Rubs, Murmur - GI/Abdominal Exam GI & Abdominal Exam: Soft, Tenderness, Normal Bowel Sounds Additional comments: Abdomen tender to palpation around surgical site. Dressing is C/D/I. DANNIE drain is in place, draining 50cc of serosanguinous fluid. - Extremities Exam Extremities Exam: absent: Calf Tenderness, Pedal Edema - Neurological Exam Neurological Exam: Alert, Awake, Oriented x3 - Psychiatric Exam Psychiatric exam: Normal Affect, Normal Mood - Skin Skin Exam: Dry, Intact, Normal Color, Warm Discharge Plan - Follow Up Plan Condition: FAIR Disposition: REHAB FACILITY/REHAB UNIT Instructions: Type 1 Diabetes, Atrial Fibrillation, High Blood Pressure in Adults, Appendectomy, Open Surgery, Preventing Falls in the Older Adult, Peripheral Vascular (Arterial) Disease (DC) Additional Instructions: Discharge to TCU Referrals: Evelyn Howell MD [Primary Care Provider] - <Giselle Varela - Last Filed: 01/28/18 18:46> Provider - Provider Date of Admission: 01/25/18 21:19 Attending physician: Giselle Varela MD Primary care physician: Evelyn Landin MD Hospital Course - Lab Results Lab Results: Most Recent Lab Values WBC 9.9 10^3/ul (4.5-11.0) 01/28/18 05:45 RBC 3.85 10^6/uL (3.5-6.1) 01/28/18 05:45 Hgb 11.0 g/dL (14.0-18.0) L 01/28/18 05:45 Hct 32.8 % (42.0-52.0) L 01/28/18 05:45 MCV 85.2 fl (80.0-105.0) 01/28/18 05:45 MCH 28.6 pg (25.0-35.0) 01/28/18 05:45 MCHC 33.5 g/dl (31.0-37.0) 01/28/18 05:45 RDW 13.0 % (11.5-14.5) 01/28/18 05:45 Plt Count 169 10^3/uL (120.0-450.0) 01/28/18 05:45 MPV 10.7 fl (7.0-11.0) 01/28/18 05:45 Gran % 76.1 % (50.0-68.0) H 01/28/18 05:45 Lymph % (Auto) 6.2 % (22.0-35.0) L 01/28/18 05:45 [place] % (Auto) 15.6 % (1.0-6.0) H 01/28/18 05:45 Eos % (Auto) 2.0 % (1.5-5.0) 01/28/18 05:45 Baso % (Auto) 0.1 % (0.0-3.0) 01/28/18 05:45 Gran # 7.50 (1.4-6.5) H 01/28/18 05:45 Lymph # (Auto) 0.6 (1.2-3.4) L 01/28/18 05:45 [place] # (Auto) 1.5 (0.1-0.6) H 01/28/18 05:45 Eos # (Auto) 0.2 (0.0-0.7) 01/28/18 05:45 Baso # (Auto) 0.01 K/mm3 (0.0-2.0) 01/28/18 05:45 PT 15.4 SECONDS (9.4-12.5) H 01/27/18 06:00 INR 1.33 01/27/18 06:00 APTT 29.9 Seconds (25.1-36.5) 01/26/18 07:00 Sodium 140 mmol/L (132-148) 01/28/18 05:45 Potassium 3.9 mmol/L (3.6-5.0) 01/28/18 05:45 Chloride 105 mmol/L (98-107) 01/28/18 05:45 Carbon Dioxide 25 mmol/L (21-33) 01/28/18 05:45 Anion Gap 14 (10-20) 01/28/18 05:45 BUN 25 mg/dL (7-21) H 01/28/18 05:45 Creatinine 1.6 mg/dl (0.8-1.5) H 01/28/18 05:45 Est GFR ( Amer) 53 01/28/18 05:45 Est GFR (Non-Af Amer) 44 01/28/18 05:45 POC Glucose (mg/dL) 200 mg/dL (65-110) H 01/28/18 15:58 Random Glucose 191 mg/dL (70-110) H 01/28/18 05:45 Hemoglobin A1c 8.8 % (4.2-6.5) H 01/27/18 06:00 Calcium 9.1 mg/dL (8.4-10.5) 01/28/18 05:45 Magnesium 1.9 mg/dL (1.7-2.2) 01/27/18 06:00 Total Bilirubin 0.6 mg/dL (0.2-1.3) 01/28/18 05:45 AST 23 U/L (17-59) 01/28/18 05:45 ALT 23 U/L (7-56) 01/28/18 05:45 Alkaline Phosphatase 70 U/L (38-126) 01/28/18 05:45 Troponin I < 0.01 ng/mL 01/25/18 17:20 Total Protein 5.9 g/dL (5.8-8.3) 01/28/18 05:45 Albumin 3.1 g/dL (3.0-4.8) 01/28/18 05:45 Globulin 2.8 gm/dL 01/28/18 05:45 Albumin/Globulin Ratio 1.1 (1.1-1.8) 01/28/18 05:45 Triglycerides 49 mg/dL (35-160) 01/27/18 06:00 Cholesterol < 50 mg/dL (130-200) L 01/27/18 06:00 LDL Cholesterol Direct < 30 mg/dL (0-129) 01/27/18 06:00 HDL Cholesterol 27 mg/dL (29-60) L 01/27/18 06:00 Lipase 46 U/L (23-300) 01/25/18 17:20 Procalcitonin 1.90 NG/ML (0.19-0.49) H 01/28/18 05:45 Free T4 4.80 ng/dL (0.78-2.19) H 01/27/18 06:00 Thyroxine (T4) 14.6 ug/dL (5.5-11.0) H 01/27/18 06:00 TSH 3rd Generation < 0.02 mIU/mL (0.46-4.68) L 01/27/18 06:00 Urine Color Yellow (YELLOW) 01/25/18 19:08 Urine Appearance Sl cloudy (CLEAR) 01/25/18 19:08 Urine pH 6.0 (4.7-8.0) 01/25/18 19:08 Ur Specific [place] 1.025 (1.005-1.035) 01/25/18 19:08 Urine Protein >=300 mg/dL (<30 mg/dL) H 01/25/18 19:08 Urine Glucose (UA) >=1000 mg/dL (NEGATIVE) 01/25/18 19:08 Urine Ketones Negative mg/dL (NEGATIVE) 01/25/18 19:08 Urine Blood Negative (NEGATIVE) 01/25/18 19:08 Urine Nitrate Negative (NEGATIVE) 01/25/18 19:08 Urine Bilirubin Negative (NEGATIVE) 01/25/18 19:08 Urine Urobilinogen 0.2 E.U./dL (<1 E.U./dL) 01/25/18 19:08 Ur Leukocyte Esterase Negative Donya/uL (NEGATIVE) 01/25/18 19:08 Urine RBC Negative /hpf (0-2) 01/25/18 19:08 Urine WBC 0 - 2 /hpf (0-6) 01/25/18 19:08 Urine Bacteria Trace (NEG) 01/25/18 19:08 Fine Granular Casts 0 - 2 /hpf (0-2) 01/25/18 19:08 Blood Type O POSITIVE 01/25/18 20:20 Antibody Screen Negative 01/25/18 20:20 Crossmatch See Detail 01/25/18 20:20 BBK History Checked Patient has bt 01/25/18 20:20 Attending/Attestation - Attestation I have personally seen and examined this patient.: Yes I have fully participated in the care of the patient.: Yes I have reviewed all pertinent clinical information, including history, physical exam and plan: Yes Notes (Text): 01/28/18 18:44 62 year old male with past medical history of CAD, hypertension, and diabetes who presented with abdominal pain found to have acute appendicitis. He was seen by surgery and is s/p laparoscopic converted to open appendectomy POD #2. His diet is advanced today. CXR showed patchy infiltrate for which he is on antibiotics. Endocrinology is following for hyperthyroidism. He is on methimazole. He was seen by PT who recommended TCU to which patient and family are agreeable. Patient will be discharged to TCU and we will continue to follow. Giselle Varela MD Hospitalist.
[2018-01-28] MEDS ORDERED: Oxycodone/Acetaminophen 5/325 mg Tab PO PRN ×2 (17:34→20:00)
[2018-01-28] MEDS ORDERED: guaiFENesin-DM 600-30 mg ER Tab PO SCH (18:00)
[2018-01-28 18:45] LABS: THYROGLOBULIN 18.2 ng/mL (2.8-40.9)
[2018-01-28] MEDS ORDERED: Insulin Detemir 100 units/ml Vial (Levemir) SC SCH (22:00)
[2018-01-29] MEDS ORDERED: Pantoprazole 40 mg EC Tab PO SCH (07:30)
[2018-01-31 18:46] LABS: TSI <89 % baseline (<140)
--- NOTE | 2018-02-03 05:34 | OP ---
Copied To: Jefferson Chong MD Attending MD: Jefferson Chong MD PROCEDURE DATE: 01/26/2018 PREOPERATIVE DIAGNOSIS: Acute appendicitis. POSTOPERATIVE DIAGNOSIS: Acute appendicitis. OPERATION PERFORMED: Laparoscopic appendectomy converted to open. SURGEON: Jefferson Chong MD DESCRIPTION OF PROCEDURE: In the operating room, the patient was identified by name, name of procedure, laterality, my trice. The abdomen was entered through a supraumbilical incision that was actually cut down to the fascia. Using the Visiport, it was entered and a suprapubic and left lower quadrant drains, cannula were placed. This allowed dissection, however the inflammatory changes precluded safe operation. This was converted to an open, the midline was opened. The abdomen entered, the cecum was rolled towards the midline. The appendix base was found retrograde. The tip was found and from distal ileum, was brought out, the mesentery was taken with the Harmonic, base was taken with HENRY 30. The abdomen was irrigated and dried. The incision was closed with #1 PDS above and below and tied in the middle and injected with Marcaine. The wound was left open as it was gangrenous inflamed appendix. Patient tolerated the procedure well. Taken to recovery room in good condition. Jefferson Chong MD MTDD
== END 2018-01-28 19:19 | DRG 342 ==
LOC: ED 16:31 → ERH 21:19 → 5RSO 22:53
PROVIDERS: ADMIT Internal Medicine; ATTEND Internal Medicine
PROC: 0DTJ0ZZ Resection of Appendix, Open Approach (ICD-10-PCS; principal; 2018-01-26 12:00)
PROC: 0DJD4ZZ Inspection of Lower Intestinal Tract, Percutaneous Endoscopic Approach (ICD-10-PCS; 2018-01-26 12:00)
DX: K35.80 Unspecified acute appendicitis (principal); I69.354 Hemiplegia and hemiparesis following cerebral infarction affecting left non-dominant side; E05.90 Thyrotoxicosis, unspecified without thyrotoxic crisis or storm; I25.118 Atherosclerotic heart disease of native coronary artery with other forms of angina pectoris; I12.9 Hypertensive chronic kidney disease with stage 1 through stage 4 chronic kidney disease, or unspecified chronic kidney disease; N18.3 Chronic kidney disease, stage 3 (moderate); E11.21 Type 2 diabetes mellitus with diabetic nephropathy; E11.22 Type 2 diabetes mellitus with diabetic chronic kidney disease; E11.51 Type 2 diabetes mellitus with diabetic peripheral angiopathy without gangrene; E11.65 Type 2 diabetes mellitus with hyperglycemia; I48.0 Paroxysmal atrial fibrillation; I48.2 Chronic atrial fibrillation; K21.9 Gastro-esophageal reflux disease without esophagitis; E06.3 Autoimmune thyroiditis; F41.1 Generalized anxiety disorder; K63.5 Polyp of colon; F32.9 Major depressive disorder, single episode, unspecified; E78.00 Pure hypercholesterolemia, unspecified; E78.5 Hyperlipidemia, unspecified; E11.319 Type 2 diabetes mellitus with unspecified diabetic retinopathy without macular edema; E11.42 Type 2 diabetes mellitus with diabetic polyneuropathy; Z53.31 Laparoscopic surgical procedure converted to open procedure; Z79.4 Long term (current) use of insulin; Z79.01 Long term (current) use of anticoagulants; Z79.02 Long term (current) use of antithrombotics/antiplatelets; Z87.891 Personal history of nicotine dependence; Z89.412 Acquired absence of left great toe; Z95.5 Presence of coronary angioplasty implant and graft; Z80.0 Family history of malignant neoplasm of digestive organs; Z83.3 Family history of diabetes mellitus; Z80.6 Family history of leukemia

== ENCOUNTER 2018-01-28 19:21 | Inpatient (IN) | payer MEDICARE, OTHER ==
[2018-01-28] MEDS ORDERED: Acetylcysteine 20% Inhal Soln (4ml) IH PRN (19:40)
[2018-01-28] MEDS ORDERED: Dextrose 50% SYRINGE Inj (50 ml) IV PRN (19:40)
[2018-01-28] MEDS ORDERED: guaiFENesin-DM 600-30 mg ER Tab PO PRN (19:40)
[2018-01-28] MEDS ORDERED: Albuterol-Ipratrop 3 mg / 0.5 (3 ml) UD IH PRN (19:40)
[2018-01-28] MEDS ORDERED: Benzocaine/Menthol (Cepacol) Lozenge MT PRN (19:40)
[2018-01-28] MEDS: Morphine 2 mg/ml ISec IVP PRN ×2 (21:05→21:21)
[2018-01-28] MEDS: Insulin Lispro (humaLOG) LOW Coverage SC SCH (21:25)
[2018-01-28] MEDS ORDERED: Insulin Detemir 100 units/ml Vial (Levemir) SC SCH (22:00)
[2018-01-29] MEDS ORDERED: AMPICILLIN IVPB SCH
[2018-01-29] MEDS ORDERED: SULBACTAM IVPB SCH
[2018-01-29] MEDS: Oxycodone/Acetaminophen 5/325 mg Tab PO PRN ×4 (01:14→22:41)
[2018-01-29] MEDS: Pantoprazole 40 mg EC Tab PO SCH ×2 (05:20→09:02)
[2018-01-29] MEDS: Insulin Lispro (humaLOG) LOW Coverage SC SCH ×4 (06:50→21:45)
[2018-01-29] MEDS ORDERED: Pantoprazole 40 mg EC Tab PO SCH (07:30)
[2018-01-29 08:06] LABS: BASO # 0.03 K/mm3 (0.0-2.0); BASO % 0.3 % (0.0-3.0); EOS # 0.2 (0.0-0.7); GRAN # 7.81 (1.4-6.5); GRAN % 77.9 % (50.0-68.0); HEMOGLOBIN 12.7 g/dL (14.0-18.0); LYMPH # 1.5 (1.2-3.4); LYMPH % 14.7 % (22.0-35.0); MEAN CELL VOLUME 85.8 fl (80.0-105.0); MEAN CORPUSCULAR HGB CONC 33.8 g/dl (31.0-37.0); MEAN PLATELET VOLUME 10.2 fl (7.0-11.0); MONO # 0.5 (0.1-0.6); MONO % 5.1 % (1.0-6.0); RBC 4.38 10^6/uL (3.5-6.1)
[2018-01-29 08:17] LABS: ALB/GLOB RATIO 1.1 (1.1-1.8); ALBUMIN 3.4 g/dL (3.0-4.8); CALCIUM 9.5 mg/dL (8.4-10.5)
--- NOTE | 2018-01-29 08:19 | CP.PCM.PN ---
Subjective - Date & Time of Evaluation Date of Evaluation: 01/29/18 Time of Evaluation: 08:16 - Subjective Subjective: Surgery: Dr. Chong Pt seen and examined. No acute overnight events. Pt states he feels ok but admits to post-op pain. He is tolerating liquids but doesn't have a strong appetite. He admits to small BM yesterday and some flatus. Denies N/V, F/C. Objective - Vital Signs/Intake and Output Vital Signs (last 24 hours): Temp Pulse Resp BP Pulse Ox 68 18 150/82 01/28/18 21:45 01/28/18 20:53 01/28/18 21:45 Intake and Output: 01/29/18 01/29/18 06:59 18:59 Output Total 340 Balance -340 - Medications Medications: Current Medications Acetylcysteine (Acetylcysteine 20%) 4 ml IH [id number] PRN PRN Reason: Shortness of Breath Albuterol/Ipratropium (Duoneb 3 Mg/0.5 Mg (3 Ml) Ud) 3 ml IH [id number] PRN PRN Reason: Shortness of Breath Alprazolam (Xanax) 0.5 mg PO BID CONRAD PRN Reason: Protocol Last Admin: 01/28/18 23:27 Dose: Not Given Amiodarone HCl (Cordarone) 100 mg PO DAILY [facility] Apixaban (Eliquis) 2.5 mg PO BID CONRAD PRN Reason: Protocol Atorvastatin Calcium (Lipitor) 40 mg PO DIN [facility] Benzocaine/Menthol (Cepacol Sore Throat) 1 [place] MT Q2H PRN PRN Reason: Sore Throat Clopidogrel Bisulfate (Plavix) 75 mg PO DAILY [facility] Dextrose (Dextrose 50% Inj) 0 ml IV STAT PRN; Protocol PRN Reason: Hypoglycemia Protocol Duloxetine HCl (Cymbalta) 60 mg PO DAILY [facility] Glipizide (Glucotrol) 10 mg PO ACBD [facility] Last Admin: 01/29/18 06:50 Dose: 10 mg Guaifenesin/Dextromethorphan (Mucinex-Dm 600-30 Mg) 1 tab PO BID PRN PRN Reason: Cough Hydralazine HCl (Apresoline) 25 mg PO TID [facility] Ampicillin Sodium/Sulbactam (Sodium 3 gm/ Sodium Chloride) 100 mls @ 200 mls/ hr IVPB Q6 [facility] Last Admin: 01/29/18 05:20 Dose: 200 mls/hr Insulin Detemir (Levemir) 20 unit SC HS [facility] Last Admin: 01/28/18 22:00 Dose: 20 units Insulin Human Lispro (Humalog Low) 0 units SC ACHS [place]RAD PRN Reason: Protocol Last Admin: 01/29/18 06:50 Dose: 2 units Lisinopril (Zestril) 40 mg PO DAILY [facility] Methimazole (Tapazole) 10 mg PO Q8H [facility] Last Admin: 01/29/18 05:20 Dose: 10 mg Metoprolol Succinate (Toprol Xl) 25 mg PO DAILY [facility] Ondansetron HCl (Zofran Inj) 4 mg IVP Q4H PRN PRN Reason: Nausea/Vomiting Last Admin: 01/28/18 22:01 Dose: 4 mg Oxycodone/Acetaminophen (Percocet 5/325 Mg Tab) 1 tab PO Q6H PRN PRN Reason: Pain, severe (8-10) Stop: 02/01/18 01:01 Last Admin: 01/29/18 06:50 Dose: 1 tab Pantoprazole Sodium (Protonix Ec Tab) 40 mg PO DAILY [facility] Last Admin: 01/29/18 05:20 Dose: 40 mg - Labs Labs: 01/29/18 07:50 - Constitutional Appears: No Acute Distress - Head Exam Head Exam: ATRAUMATIC, NORMOCEPHALIC - ENT Exam ENT Exam: Mucous Membranes Moist - Respiratory Exam Respiratory Exam: NORMAL BREATHING PATTERN - Cardiovascular Exam Cardiovascular Exam: RRR - GI/Abdominal Exam GI & Abdominal Exam: Distended (slightly ), Guarding (voluntary ), Soft, Tenderness (around midline incision ) Additional comments: Binh drain in place with serosang output - Neurological Exam Neurological Exam: Alert, Awake, Oriented x3 - Skin Skin Exam: Dry, Warm Assessment and Plan - Assessment and Plan (Free Text) Assessment: 62M s/p lap converted to open appendectomy; POD#3 Plan: - monitor drain output - miralax to help with BM - encourage ambulation - plan for DC tomorrow - d/w Dr. Castillo Montenegro
[2018-01-29] MEDS ORDERED: POLYETHYLENE GLYCOL 3350 17 GM/Dose PACKET PO ONE (08:21)
[2018-01-29 08:26] LABS: FREE T4 5.32 ng/dL (0.78-2.19); T4 16.9 ug/dL (5.5-11.0)
[2018-01-29] MEDS: Metoprolol Succinate 25 mg XL Tab PO SCH (09:02)
--- NOTE | 2018-01-29 10:26 | CP.PCM.HP ---
<LySantino - Last Filed: 01/29/18 14:59> History of Present Illness - History of Present Illness History of Present Illness: Santino Ly DO PGY1 - Internal Medicine [employer] - TCU ADMISSION NOTE 62 year old male with past medical history of hypertension, PAD, GERD, DM II, atrial fibrillation, CAD s/p stent placement in October, amputation of left toe, stroke 5-6 years ago, admitted for acute appendicitis. Patient is s/p laparoscopic converted to open appendectomy. Patient was treated with Acetylcysteine, duoneb, xanax, amiodarone, eliquis, lipitor, plavix, cymbalta, hydralazine, cefoxitin, metronidazole, insulin, lisinopril, tapazole, toprol XL , morphine, zofran, protonix, and prandin. During the course of his hospital stay, he got an EKG that showed normal sinus rhythm at [address] showed uncomplicated acute appendicitis with 2 appendicoliths involving the proximal appendix. Incidental and other non-acute findings are described above. The appendix demonstrates moderate diffuse distention, consistent with moderate acute appendicitis. There are multiple intraluminal appendiceal calcifications consistent with appendicoliths. Appendiceal diameter 2.2 cm. There is moderate periappendiceal inflammatory stranding. Chest xray showed one limited patchy airspace disease medial right apex and left perihilar region, remaining lung cunha appear clear. Labs revealed that patient has hyperthyroidism with TSH: < 0.02 and free T4: 4.07. Endocrinology (Dr. Edmonds) started patient on methimazole since the patient has hyperthyroidism. Cardiology (Dr. Archer) recommended patient to continue home amiodarone, atorvastatin, lisinopril, and metoprolol succinate. Medicine reconciliation was done and TCU staff was given instructions to continue patient's home medications. Patient was instructed to follow up with primary care doctor within one week of discharge from TCU. Patient further informed to return to the ED for worsening of symptoms.Patient is now medically optimized for discharge to TCU. As per PT, patient is recommended for TCU with which patient and family were agreeable day prior. Pt. was seen and examined at bedside this AM, in TCU. Stated he had good appetite, no Abd pain other than incision site, no N/V/D/C, denies any fevers, chills, chest pain, urinary complaints. Remainder of 12 system ROS is negative Patient's questions were answered. PMH: as stated above PSH: cardiac stent in October, cervical lymph node biopsy, left 1st toe amputation, Appendectomy 01/26/2018 Allergies: NKDA FMHx: Mother: from colon cancer and diabetes II. Father from leukemia SHx: smoked 1 ppd for 20 years and stopped 20 years ago. Denies alcohol or illicit drug use. PMD: Dr. Hinojosa Pharmacy: [facility] in [place] Insurance: [employer] Present on Admission - Present on Admission Any Indicators Present on Admission: No Review of Systems - Review of Systems All systems: reviewed and no additional remarkable complaints except Review of Systems: as per HPI Past Patient History - Infectious Disease Hx of Infectious Diseases: None - Tetanus Immunizations Tetanus Immunization: Unknown - Past Social History Smoking Status: Former Smoker - CARDIAC Hx Hypertension: Yes - PULMONARY Hx Respiratory Disorders: No - NEUROLOGICAL HX Cerebrovascular Accident: Yes - HEENT Hx HEENT Problems: No - RENAL Hx Chronic Kidney Disease: Yes (Renal insufficiency ) - ENDOCRINE/METABOLIC Hx Diabetes Mellitus Type 2: Yes - HEMATOLOGICAL/ONCOLOGICAL Hx Blood Transfusions: No Hx Blood Transfusion Reaction: No - INTEGUMENTARY Hx Dermatological Problems: No - MUSCULOSKELETAL/RHEUMATOLOGICAL Hx Falls: No - GASTROINTESTINAL Hx Gastrointestinal Disorders: Yes Hx Gastroesophageal Reflux: Yes - GENITOURINARY/GYNECOLOGICAL Hx Genitourinary Disorders: No - PSYCHIATRIC Hx Substance Use: No - SURGICAL HISTORY Hx Surgeries: Yes - ANESTHESIA Hx Anesthesia Reactions: No Hx Malignant Hyperthermia: No Meds Allergies/Adverse Reactions: Allergies Allergy/AdvReac Type Severity Reaction Status Date / Time No Known Allergies Allergy Verified 01/28/18 19:32 Physical Exam - Constitutional Appears: Well, Non-toxic, No Acute Distress - Head Exam Head Exam: ATRAUMATIC, NORMOCEPHALIC - Eye Exam Eye Exam: EOMI, PERRL. absent: Scleral icterus - ENT Exam ENT Exam: Mucous Membranes Moist - Respiratory Exam Respiratory Exam: Clear to Auscultation Bilateral, NORMAL BREATHING PATTERN - Cardiovascular Exam Cardiovascular Exam: RRR, +S1, +S2 - GI/Abdominal Exam Additional comments: Soft, non distended, Mild tenderness to palpation at surgical site, Bowel sounds normal. Midline incision covered with dressing, CDI. Drain in place w/ serosanguinous output. - Extremities Exam Extremities exam: Positive for: pedal pulses present. Negative for: tenderness - Back Exam Back exam: absent: CVA tenderness (L), CVA tenderness (R) - Neurological Exam Neurological exam: Alert, CN II-XII Intact - Psychiatric Exam Psychiatric exam: Normal Affect, Normal Mood - Skin Skin Exam: Dry, Intact, Normal Color, Warm Results - Vital Signs Recent Vital Signs: Last Vital Signs Temp Pulse 82 01/29/18 09:03 Resp 18 01/28/18 20:53 BP 131/83 01/29/18 09:03 Pulse Ox - Labs Result Diagrams: 01/29/18 07:50 01/29/18 07:50 Labs: Laboratory Results - last 24 hr 01/29/18 01/29/18 01/29/18 04:56 07:50 07:50 WBC 10.0 RBC 4.38 Hgb 12.7 L Hct 37.6 L MCV 85.8 MCH 29.0 MCHC 33.8 RDW 13.0 Plt Count 220 MPV 10.2 Gran % 77.9 H Lymph % (Auto) 14.7 L [place] % (Auto) 5.1 Eos % (Auto) 2.0 Baso % (Auto) 0.3 Gran # 7.81 H Lymph # (Auto) 1.5 [place] # (Auto) 0.5 Eos # (Auto) 0.2 Baso # (Auto) 0.03 Sodium 143 Potassium 4.2 Chloride 103 Carbon Dioxide 28 Anion Gap 17 BUN 27 H Creatinine 1.5 Est GFR ( Amer) 57 Est GFR (Non-Af Amer) 47 POC Glucose (mg/dL) 244 H Random Glucose 252 H Calcium 9.5 Total Bilirubin 0.5 AST 25 ALT 18 Alkaline Phosphatase 75 Total Protein 6.4 Albumin 3.4 Globulin 3.0 Albumin/Globulin Ratio 1.1 Free T4 Thyroxine (T4) TSH 3rd Generation 01/29/18 07:50 WBC RBC Hgb Hct MCV MCH MCHC RDW Plt Count MPV Gran % Lymph % (Auto) [place] % (Auto) Eos % (Auto) Baso % (Auto) Gran # Lymph # (Auto) [place] # (Auto) Eos # (Auto) Baso # (Auto) Sodium Potassium Chloride Carbon Dioxide Anion Gap BUN Creatinine Est GFR ( Amer) Est GFR (Non-Af Amer) POC Glucose (mg/dL) Random Glucose Calcium Total Bilirubin AST ALT Alkaline Phosphatase Total Protein Albumin Globulin Albumin/Globulin Ratio Free T4 5.32 H Thyroxine (T4) 16.9 H TSH 3rd Generation < 0.02 L Assessment & Plan - Assessment and Plan (Free Text) Assessment: 62 year old male with past medical history of hypertension, PAD, GERD, DM II, CAD s/p stent placement in October, amputation of left toe, stroke 5-6 years ago, admitted for acute appendicitis. Patient is s/p laparoscopic converted to open appendectomy POD#3. Also found to have pneumonia. Acute Appendicitis Monitor IO C/w IV ABX Monitor Appetite Diet was advanced yesterday Pneumonia Parhcy infiltrate on CXR Unsasyn Benzocaine lozange Acetylcsteine resp Q6H PRN Duoneb Q4H PRN Hx Diabetes Levemir 26Unit SC HS ISS Low Repaglinide 2mg AC Fingerstick ACHS Endocrinology Following Hx CAD s/p stent Lisinopril 40 QD Metoprolol 25 QD Plavix 75 QD Eliquis 2.5 BID Lipitor 40 Hyperthyroidism Methimazole 10Q8 Endocrinology following HTN C/w Amiodarone 100 QD C/w Hydralazine 25 TID CKD Stage III Avoid nephrotoxic agents Continue Monitoring Hx Depression/ Anxiety Cymbalta 60 QD Xanax GI/DVT PPX: Protonix/ AntiCoagulation as above Dispo: Patient in TCU as per Pt reccs for further therapy and monitoring on IV Abx. Pt. is s/p open appendectomy and found to have pneumonia on imaging. Patient was seen, discussed, and examined w/ attending physician Dr. Nichole Ly DO PGY1 - Internal Medicine [employer] - Date & Time Date: 01/29/18 Time: 15:30 <Giselle Varela - Last Filed: 01/29/18 16:23> Results - Vital Signs Recent Vital Signs: Last Vital Signs Temp 97.5 F L 01/29/18 16:00 Pulse 87 01/29/18 16:00 Resp 18 01/29/18 16:00 BP 165/95 H 01/29/18 16:00 Pulse Ox 100 01/29/18 16:00 - Labs Result Diagrams: 01/29/18 07:50 01/29/18 07:50 Labs: Laboratory Results - last 24 hr 08/01/29/18 01/29/18 04:56 07:50 07:50 WBC 10.0 RBC 4.38 Hgb 12.7 L Hct 37.6 L MCV 85.8 MCH 29.0 MCHC 33.8 RDW 13.0 Plt Count 220 MPV 10.2 Gran % 77.9 H Lymph % (Auto) 14.7 L [place] % (Auto) 5.1 Eos % (Auto) 2.0 Baso % (Auto) 0.3 Gran # 7.81 H Lymph # (Auto) 1.5 [place] # (Auto) 0.5 Eos # (Auto) 0.2 Baso # (Auto) 0.03 Sodium 143 Potassium 4.2 Chloride 103 Carbon Dioxide 28 Anion Gap 17 BUN 27 H Creatinine 1.5 Est GFR ( Amer) 57 Est GFR (Non-Af Amer) 47 POC Glucose (mg/dL) 244 H Random Glucose 252 H Calcium 9.5 Total Bilirubin 0.5 AST 25 ALT 18 Alkaline Phosphatase 75 Total Protein 6.4 Albumin 3.4 Globulin 3.0 Albumin/Globulin Ratio 1.1 Free T4 Thyroxine (T4) TSH 3rd Generation 01/29/18 01/29/18 07:50 10:52 WBC RBC Hgb Hct MCV MCH MCHC RDW Plt Count MPV Gran % Lymph % (Auto) [place] % (Auto) Eos % (Auto) Baso % (Auto) Gran # Lymph # (Auto) [place] # (Auto) Eos # (Auto) Baso # (Auto) Sodium Potassium Chloride Carbon Dioxide Anion Gap BUN Creatinine Est GFR ( Amer) Est GFR (Non-Af Amer) POC Glucose (mg/dL) 391 H Random Glucose Calcium Total Bilirubin AST ALT Alkaline Phosphatase Total Protein Albumin Globulin Albumin/Globulin Ratio Free T4 5.32 H Thyroxine (T4) 16.9 H TSH 3rd Generation < 0.02 L Attending/Attestation - Attestation I have personally seen and examined this patient.: Yes I have fully participated in the care of the patient.: Yes I have reviewed all pertinent clinical information: Yes Notes (Text): 01/29/18 16:21 62 year old male with past medical history of CAD, hypertension, and diabetes who presented with abdominal pain found to have acute appendicitis. He was seen by surgery and is s/p laparoscopic converted to open appendectomy POD #3. Surgery is following. Patient is tolerating diet. CXR showed patchy infiltrate for which he is on antibiotics. Endocrinology is following for hyperthyroidism. He is on methimazole. Will request cardiology follow up as patient is on amiodarone also. Continue with physical therapy while patient is in TCU. Giselle Varela MD Hospitalist.
--- NOTE | 2018-01-29 14:44 | PN ---
Copied To: Roxy Edmonds MD Attending MD: Roxy Edmonds MD DATE: 01/29/2018 ENDOCRINOLOGY FOLLOWUP NOTE LOCATION: Room 315, [facility]. SUBJECTIVE: This is a 62-year-old male with recent uncontrolled type 2 insulin-requiring diabetes presenting here with an acute appendicitis and underwent an open appendectomy procedure and has now improved clinically and metabolically postoperatively as noted thereof. His oral intake is still quite variable as per the nursing staff. However, his glycemic levels are fluctuating but improved and the glucose levels overnight have ranged from 244-252 mg/dL. He also had overt hyperthyroidism and has been given high dose of Tapazole given as 10 mg every 8 hours as tolerated. The repeat thyroid study showed a T4 of 16.9 with a free T4 of 5.32 and a TSH of less than 0.02. His chemistry showed a BUN of 27, sodium 143, potassium 4.2, chloride 103, CO2 of 28, glucose 252 and creatinine 1.5. So at this time, we will increase his basal insulin with Levemir to be given at higher dose of 20 units subcu at bedtime daily to start tonight. We will also continue the modified Humalog insulin as a coverage scale as given. We will also add Prandin given as 2 mg p.o. t.i.d. before meals as ordered to start today. We will also continue the glipizide given as 10 mg p.o. b.i.d. before meals as ordered. We will obtain serial chemistries and supplement accordingly as needed. We will also continue the Tapazole given as 10 mg p.o. every 8 hours to allow for dose equilibration. We will obtain serial chemistries and supplement accordingly as needed and also obtain serial thyroid studies and adjust his dose regimen accordingly. ASSESSMENT: This is a 62-year-old male with uncontrolled and decompensated type 2 insulin-requiring diabetes presenting here with an acute appendicitis and is now being followed closely for metabolic management. He also presented here with overt thyrotoxicosis and noted both historically, clinically and biochemically as noted. He also has cardiac tachyarrhythmias and currently on amiodarone therapy which could also contribute to the so called amiodarone-induced thyrotoxicosis. Roxy Edmonds MD
[2018-01-29] MEDS ORDERED: Insulin Detemir 100 units/ml Vial (Levemir) SC SCH (22:00)
[2018-01-30] MEDS: Pantoprazole 40 mg EC Tab PO SCH (05:18)
[2018-01-30] MEDS: Oxycodone/Acetaminophen 5/325 mg Tab PO PRN (05:19)
[2018-01-30] MEDS: Insulin Lispro (humaLOG) LOW Coverage SC SCH ×4 (06:59→21:31)
--- NOTE | 2018-01-30 08:49 | CP.PCM.PN ---
Subjective - Date & Time of Evaluation Date of Evaluation: 01/30/18 Time of Evaluation: 08:46 - Subjective Subjective: Surgery: Dr. Chong Pt seen and examined. No acute overnight events. States he's feeling well and his pain is well controlled. He is tolerating his diet and having BMs. Pt has been working with PT and feels ready to go home. Denies any other complaints at this time. Objective - Vital Signs/Intake and Output Vital Signs (last 24 hours): Temp Pulse Resp BP Pulse Ox 97.5 F L 83 18 165/95 H 100 01/29/18 16:00 01/29/18 17:26 01/29/18 16:00 01/29/18 17:26 01/29/18 16:00 - Medications Medications: Current Medications Acetylcysteine (Acetylcysteine 20%) 4 ml IH [id number] PRN PRN Reason: Shortness of Breath Albuterol/Ipratropium (Duoneb 3 Mg/0.5 Mg (3 Ml) Ud) 3 ml IH [id number] PRN PRN Reason: Shortness of Breath Alprazolam (Xanax) 0.5 mg PO BID CONRAD PRN Reason: Protocol Last Admin: 01/29/18 17:25 Dose: 0.5 mg Amiodarone HCl (Cordarone) 100 mg PO DAILY [facility] Last Admin: 01/29/18 09:03 Dose: 100 mg Apixaban (Eliquis) 2.5 mg PO BID CONRAD PRN Reason: Protocol Last Admin: 01/29/18 17:27 Dose: 2.5 mg Atorvastatin Calcium (Lipitor) 40 mg PO DIN [facility] Last Admin: 01/29/18 17:26 Dose: 40 mg Benzocaine/Menthol (Cepacol Sore Throat) 1 macie MT Q2H PRN PRN Reason: Sore Throat Clopidogrel Bisulfate (Plavix) 75 mg PO DAILY [facility] Last Admin: 01/29/18 09:02 Dose: 75 mg Dextrose (Dextrose 50% Inj) 0 ml IV STAT PRN; Protocol PRN Reason: Hypoglycemia Protocol Duloxetine HCl (Cymbalta) 60 mg PO DAILY [facility] Last Admin: 01/29/18 09:02 Dose: 60 mg Glipizide (Glucotrol) 10 mg PO ACBD [facility] Last Admin: 01/30/18 08:30 Dose: 10 mg Guaifenesin/Dextromethorphan (Mucinex-Dm 600-30 Mg) 1 tab PO BID PRN PRN Reason: Cough Hydralazine HCl (Apresoline) 25 mg PO TID [facility] Last Admin: 01/29/18 17:26 Dose: 25 mg Ampicillin Sodium/Sulbactam (Sodium 3 gm/ Sodium Chloride) 100 mls @ 200 mls/ hr IVPB Q6 [facility] Last Admin: 01/30/18 05:18 Dose: 200 mls/hr Insulin Detemir (Levemir) 26 unit SC HS [facility] Last Admin: 01/29/18 21:39 Dose: 26 unit Insulin Human Lispro (Humalog Low) 0 units SC ACHS [facility] PRN Reason: Protocol Last Admin: 01/30/18 06:59 Dose: Not Given Lisinopril (Zestril) 40 mg PO DAILY [facility] Last Admin: 01/29/18 09:03 Dose: 40 mg Methimazole (Tapazole) 20 mg PO BID [facility] Metoprolol Succinate (Toprol Xl) 25 mg PO DAILY [facility] Last Admin: 01/29/18 09:02 Dose: 25 mg Ondansetron HCl (Zofran Inj) 4 mg IVP Q4H PRN PRN Reason: Nausea/Vomiting Last Admin: 01/28/18 22:01 Dose: 4 mg Oxycodone/Acetaminophen (Percocet 5/325 Mg Tab) 1 tab PO Q6H PRN PRN Reason: Pain, severe (8-10) Stop: 02/01/18 01:01 Last Admin: 01/30/18 05:19 Dose: 1 tab Pantoprazole Sodium (Protonix Ec Tab) 40 mg PO 0600 [facility] Last Admin: 01/30/18 05:18 Dose: 40 mg Repaglinide (Prandin) 2 mg PO AC [facility] Last Admin: 01/30/18 08:30 Dose: 2 mg - Labs Labs: 01/29/18 07:50 01/29/18 07:50 - Constitutional Appears: Well, No Acute Distress - Head Exam Head Exam: ATRAUMATIC, NORMOCEPHALIC - ENT Exam ENT Exam: Mucous Membranes Moist - Respiratory Exam Respiratory Exam: NORMAL BREATHING PATTERN - Cardiovascular Exam Cardiovascular Exam: RRR - GI/Abdominal Exam GI & Abdominal Exam: Soft, Tenderness (around incision). absent: Distended, Rebound Additional comments: manoj drain with serous output - Neurological Exam Neurological Exam: Alert, Awake, Oriented x3 - Skin Skin Exam: Dry, Warm Assessment and Plan - Assessment and Plan (Free Text) Assessment: 62M with acute appendicitis s/p lap appy converted to open Plan: - ok to DC home from surgical standpoint - will remove manoj drain prior to DC - f/u with Dr. Chong in 1-2 weeks for staple removal - No heavy lifting > 15lbs for 6-8 weeks - ok to shower tomorrow - d/w Dr. Castillo [place]
[2018-01-30] MEDS: Metoprolol Succinate 25 mg XL Tab PO SCH (09:15)
--- NOTE | 2018-01-30 12:26 | CP.PCM.PCO ---
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
--- NOTE | 2018-01-30 15:03 | PN ---
Copied To: Roxy Edmonds MD Attending MD: Roxy Edmonds MD DATE: 01/30/2018 ENDOCRINOLOGY FOLLOWUP NOTE LOCATION: Room 315, [facility]. SUBJECTIVE: This is a 62-year-old male with recent uncontrolled type 2 insulin-requiring diabetes, now being followed closely for metabolic management. He underwent a prior open appendectomy as he presented here with acute appendicitis and is tolerating his meals fairly well at this time. His glycemic levels are fluctuating but improved and have ranged from 218 to 269 mg/dL. His chemistry showed a BUN of 27, sodium 143, potassium 4.2, chloride 103, CO2 of 28, glucose 252, and creatinine 1.5. His thyroid studies showed a T4 of 16.9 with a free T4 of 5.32 and a TSH of less than 0.02. ASSESSMENT: This is a 62-year-old male with uncontrolled and decompensated type 2 insulin-requiring diabetes with improved metabolic panel using a basal and bolus insulin drug combination. He also has overt hyperthyroidism with a strong family history of thyroid disorders, but we also have to exclude a so-called amiodarone-induced thyrotoxicosis. PLAN OF MANAGEMENT: We will continue the modified Tapazole given at a higher dose of 20 mg p.o. b.i.d. after meals as ordered. We will also continue the current basal and bolus insulin regimen as given with Humalog given at a low-dose correction scale as ordered. Moreover, we will continue the modified basal insulin with Levemir given as 26 units subcu at bedtime daily as ordered. Moreover, we will actually increase his basal insulin to 30 units subcu at bedtime daily to start tonight. We will continue the oral hypoglycemic therapy given as glipizide at 10 mg b.i.d. and Prandin given as 2 mg p.o. t.i.d. with meals as ordered. We will obtain serial chemistries and supplement accordingly as needed. We will follow. Roxy Edmonds MD
--- NOTE | 2018-01-30 16:24 | PN ---
Copied To: Jefferson Chong MD Attending MD: Jefferson Chong MD DATE: 01/30/2018 SUBJECTIVE: He is doing very well status post open appendectomy after an attempted laparoscopy. It showed severe acute appendicitis with gangrene . Vital signs are normal. He is doing well. When he is feeling better, he can go home to be seen in my office in a week. Jefferson Chong MD
[2018-01-30] MEDS ORDERED: POLYETHYLENE GLYCOL 3350 17 GM/Dose PACKET PO ONE (17:47)
[2018-01-30] MEDS: Insulin Detemir 100 units/ml Vial (Levemir) SC SCH (22:56)
[2018-01-31] MEDS: Pantoprazole 40 mg EC Tab PO SCH (05:11)
[2018-01-31] MEDS: Oxycodone/Acetaminophen 5/325 mg Tab PO PRN ×2 (05:14→14:43)
[2018-01-31] MEDS: Insulin Lispro (humaLOG) LOW Coverage SC SCH ×4 (06:52→21:33)
[2018-01-31] MEDS ORDERED: POLYETHYLENE GLYCOL 3350 17 GM/Dose PACKET PO ONE (08:04)
--- NOTE | 2018-01-31 09:04 | CP.PCM.PN ---
Subjective - Date & Time of Evaluation Date of Evaluation: 01/31/18 Time of Evaluation: 09:02 - Subjective Subjective: Surgery: Dr. Chong Pt seen and examined. No acute overnight events. States he feels well, his pain is well controlled and he's tolerating his diet. He denies any N/V, fevers/ chills. Objective - Vital Signs/Intake and Output Vital Signs (last 24 hours): Temp Pulse Resp BP Pulse Ox 97.5 F L 82 18 190/91 H 100 01/29/18 16:00 01/31/18 05:54 01/29/18 16:00 01/31/18 05:54 01/29/18 16:00 Intake and Output: 01/31/18 01/31/18 06:59 18:59 Intake Total 420 Output Total 160 Balance -160 420 - Medications Medications: Current Medications Acetylcysteine (Acetylcysteine 20%) 4 ml IH [id number] PRN PRN Reason: Shortness of Breath Albuterol/Ipratropium (Duoneb 3 Mg/0.5 Mg (3 Ml) Ud) 3 ml IH [id number] PRN PRN Reason: Shortness of Breath Alprazolam (Xanax) 0.5 mg PO BID CONRAD PRN Reason: Protocol Last Admin: 01/30/18 17:15 Dose: 0.5 mg Apixaban (Eliquis) 2.5 mg PO BID CONRAD PRN Reason: Protocol Last Admin: 01/30/18 17:16 Dose: 2.5 mg Atorvastatin Calcium (Lipitor) 40 mg PO DIN [facility] Last Admin: 01/30/18 17:18 Dose: 40 mg Benzocaine/Menthol (Cepacol Sore Throat) 1 macie MT Q2H PRN PRN Reason: Sore Throat Clopidogrel Bisulfate (Plavix) 75 mg PO DAILY [facility] Last Admin: 01/30/18 09:15 Dose: 75 mg Dextrose (Dextrose 50% Inj) 0 ml IV STAT PRN; Protocol PRN Reason: Hypoglycemia Protocol Duloxetine HCl (Cymbalta) 60 mg PO DAILY [facility] Last Admin: 01/30/18 09:16 Dose: 60 mg Glipizide (Glucotrol) 10 mg PO ACBD [facility] Last Admin: 01/31/18 07:56 Dose: 10 mg Guaifenesin/Dextromethorphan (Mucinex-Dm 600-30 Mg) 1 tab PO BID PRN PRN Reason: Cough Hydralazine HCl (Apresoline) 25 mg PO TID [facility] Last Admin: 01/31/18 05:54 Dose: 25 mg Ampicillin Sodium/Sulbactam (Sodium 3 gm/ Sodium Chloride) 100 mls @ 200 mls/ hr IVPB Q6 [facility] Last Admin: 01/31/18 05:11 Dose: 200 mls/hr Insulin Detemir (Levemir) 30 unit SC HS [facility] Last Admin: 01/30/18 22:56 Dose: 30 units Insulin Human Lispro (Humalog Low) 0 units SC ACHS [facility] PRN Reason: Protocol Last Admin: 01/31/18 06:52 Dose: Not Given Lisinopril (Zestril) 40 mg PO DAILY [facility] Last Admin: 01/30/18 09:15 Dose: 40 mg Methimazole (Tapazole) 20 mg PO BID [facility] Last Admin: 01/30/18 17:18 Dose: 20 mg Metoprolol Succinate (Toprol Xl) 25 mg PO DAILY [facility] Last Admin: 01/30/18 09:15 Dose: 25 mg Ondansetron HCl (Zofran Inj) 4 mg IVP Q4H PRN PRN Reason: Nausea/Vomiting Last Admin: 01/28/18 22:01 Dose: 4 mg Oxycodone/Acetaminophen (Percocet 5/325 Mg Tab) 1 tab PO Q6H PRN PRN Reason: Pain, severe (8-10) Stop: 02/01/18 01:01 Last Admin: 01/31/18 05:14 Dose: 1 tab Pantoprazole Sodium (Protonix Ec Tab) 40 mg PO 0600 [facility] Last Admin: 01/31/18 05:11 Dose: 40 mg Repaglinide (Prandin) 2 mg PO AC [facility] Last Admin: 01/31/18 07:56 Dose: 2 mg - Labs Labs: 01/29/18 07:50 01/29/18 07:50 - Constitutional Appears: Well, No Acute Distress - Head Exam Head Exam: ATRAUMATIC, NORMOCEPHALIC - Eye Exam Eye Exam: Normal appearance - ENT Exam ENT Exam: Mucous Membranes Moist - Respiratory Exam Respiratory Exam: NORMAL BREATHING PATTERN - Cardiovascular Exam Cardiovascular Exam: RRR - GI/Abdominal Exam GI & Abdominal Exam: Soft, Tenderness (around midline incision; angelika in place. Incision clean/dry/intact ). absent: Guarding - Neurological Exam Neurological Exam: Alert, Awake, Oriented x3 - Skin Skin Exam: Dry, Warm Assessment and Plan - Assessment and Plan (Free Text) Assessment: 62M s/p lap converted to open appendectomy; POD#3 Plan: - ok to DC from surgical standpoint - stool softeners PRN for constipation - f/u with Dr. Chong in the office for staple removal - d/w Dr. Castillo [place]ro
[2018-01-31] MEDS: Metoprolol Succinate 25 mg XL Tab PO SCH (10:17)
--- NOTE | 2018-01-31 15:26 | CP.PCM.PN ---
<LeilaManjeet Balaji - Last Filed: 01/31/18 15:23> Subjective - Date & Time of Evaluation Date of Evaluation: 01/31/18 Time of Evaluation: 15:23 - Subjective Subjective: Medicine progress note: Leila PGY - 2, IM Resident Patient seen and examined at bedside. Patient states that he has not been able to pass BM's. Denies any other acute complaints. No acute overnight events. Objective - Vital Signs/Intake and Output Vital Signs (last 24 hours): Temp Pulse Resp BP Pulse Ox 97.5 F L 83 18 154/82 H 100 01/29/18 16:00 01/31/18 14:40 01/29/18 16:00 01/31/18 14:40 01/29/18 16:00 Intake and Output: 01/31/18 01/31/18 06:59 18:59 Intake Total 420 Output Total 160 Balance -160 420 - Medications Medications: Current Medications Acetylcysteine (Acetylcysteine 20%) 4 ml IH [id number] PRN PRN Reason: Shortness of Breath Albuterol/Ipratropium (Duoneb 3 Mg/0.5 Mg (3 Ml) Ud) 3 ml IH [id number] PRN PRN Reason: Shortness of Breath Alprazolam (Xanax) 0.5 mg PO BID CONRAD PRN Reason: Protocol Last Admin: 01/31/18 10:16 Dose: Not Given Amlodipine Besylate (Norvasc) 5 mg PO DAILY [facility] Last Admin: 01/31/18 10:25 Dose: 5 mg Apixaban (Eliquis) 2.5 mg PO BID CONRAD PRN Reason: Protocol Last Admin: 01/31/18 10:17 Dose: 2.5 mg Atorvastatin Calcium (Lipitor) 40 mg PO DIN [facility] Last Admin: 01/30/18 17:18 Dose: 40 mg Benzocaine/Menthol (Cepacol Sore Throat) 1 macie MT Q2H PRN PRN Reason: Sore Throat Clopidogrel Bisulfate (Plavix) 75 mg PO DAILY [facility] Last Admin: 01/31/18 10:17 Dose: 75 mg Dextrose (Dextrose 50% Inj) 0 ml IV STAT PRN; Protocol PRN Reason: Hypoglycemia Protocol Duloxetine HCl (Cymbalta) 60 mg PO DAILY [facility] Last Admin: 01/31/18 10:16 Dose: 60 mg Glipizide (Glucotrol) 10 mg PO ACBD [facility] Last Admin: 01/31/18 07:56 Dose: 10 mg Guaifenesin/Dextromethorphan (Mucinex-Dm 600-30 Mg) 1 tab PO BID PRN PRN Reason: Cough Hydralazine HCl (Apresoline) 25 mg PO TID [facility] Last Admin: 01/31/18 14:40 Dose: 25 mg Ampicillin Sodium/Sulbactam (Sodium 3 gm/ Sodium Chloride) 100 mls @ 200 mls/ hr IVPB Q6 [facility] Last Admin: 01/31/18 12:25 Dose: 200 mls/hr Insulin Detemir (Levemir) 30 unit SC HS [facility] Last Admin: 01/30/18 22:56 Dose: 30 units Insulin Human Lispro (Humalog Low) 0 units SC ACHS CONRAD PRN Reason: Protocol Last Admin: 01/31/18 11:54 Dose: Not Given Lisinopril (Zestril) 40 mg PO DAILY [facility] Last Admin: 01/31/18 10:17 Dose: 40 mg Methimazole (Tapazole) 20 mg PO BID [facility] Last Admin: 01/31/18 10:17 Dose: 20 mg Metoprolol Succinate (Toprol Xl) 25 mg PO DAILY [facility] Last Admin: 01/31/18 10:17 Dose: 25 mg Ondansetron HCl (Zofran Inj) 4 mg IVP Q4H PRN PRN Reason: Nausea/Vomiting Last Admin: 01/28/18 22:01 Dose: 4 mg Oxycodone/Acetaminophen (Percocet 5/325 Mg Tab) 1 tab PO Q6H PRN PRN Reason: Pain, severe (8-10) Stop: 02/01/18 01:01 Last Admin: 01/31/18 14:43 Dose: 1 tab Pantoprazole Sodium (Protonix Ec Tab) 40 mg PO 0600 [facility] Last Admin: 01/31/18 05:11 Dose: 40 mg Repaglinide (Prandin) 2 mg PO AC [facility] Last Admin: 01/31/18 12:25 Dose: 2 mg - Labs Labs: 01/29/18 07:50 01/29/18 07:50 - Constitutional Appears: Well - Head Exam Head Exam: ATRAUMATIC, NORMAL INSPECTION, NORMOCEPHALIC - Eye Exam Eye Exam: EOMI, Normal appearance, PERRL Pupil Exam: NORMAL ACCOMODATION, PERRL - ENT Exam ENT Exam: Mucous Membranes Moist, Normal Exam - Neck Exam Neck Exam: Full ROM, Normal Inspection. absent: Lymphadenopathy - Respiratory Exam Respiratory Exam: Clear to Ausculation Bilateral, NORMAL BREATHING PATTERN - Cardiovascular Exam Cardiovascular Exam: REGULAR RHYTHM, +S1, +S2. absent: Murmur - GI/Abdominal Exam GI & Abdominal Exam: Soft, Normal Bowel Sounds. absent: Tenderness - Extremities Exam Extremities Exam: Full ROM, Normal Capillary Refill, Normal Inspection. absent : Joint Swelling, Pedal Edema - Back Exam Back Exam: NORMAL INSPECTION - Neurological Exam Neurological Exam: Alert, Awake, CN II-XII Intact, Normal Gait, Oriented x3 - Psychiatric Exam Psychiatric exam: Normal Affect, Normal Mood - Skin Skin Exam: Dry, Intact, Normal Color, Warm Assessment and Plan - Assessment and Plan (Free Text) Assessment: 62 year old male with past medical history of hypertension, PAD, GERD, DM II, CAD s/p stent placement in October, amputation of left toe, stroke 5-6 years ago, admitted for acute appendicitis. Patient is s/p laparoscopic converted to open appendectomy POD#3. Also found to have pneumonia. Acute Appendicitis Monitor IO C/w IV ABX Monitor Appetite Diet: HHD Acute constipation - Miralax BID Pneumonia Patchy infiltrate on CXR Unsasyn Benzocaine lozange Acetylcsteine resp Q6H PRN Duoneb Q4H PRN Hx Diabetes Levemir 26Unit SC HS ISS Low Repaglinide 2mg AC Fingerstick ACHS Endocrinology Following Hx CAD s/p stent Lisinopril 40 QD Metoprolol 25 QD Plavix 75 QD Eliquis 2.5 BID Lipitor 40 Hyperthyroidism Methimazole 10Q8 Endocrinology following HTN C/w Amiodarone 100 QD C/w Hydralazine 25 TID CKD Stage III Avoid nephrotoxic agents Continue Monitoring Hx Depression/ Anxiety Cymbalta 60 QD Xanax GI/DVT PPX: Protonix/AntiCoagulation as above Dispo: Clear for discharge from surgical point of view, PT wants home with services. Once patient is able to pass BM's, will consider discharge planning. <Giselle Varela A - Last Filed: 01/31/18 17:30> Objective - Vital Signs/Intake and Output Vital Signs (last 24 hours): Temp Pulse Resp BP Pulse Ox 98 F 71 18 147/81 97 01/31/18 16:00 01/31/18 16:00 01/31/18 16:00 01/31/18 16:00 01/31/18 16:00 Intake and Output: 01/31/18 01/31/18 06:59 18:59 Intake Total 420 Output Total 160 Balance -160 420 - Medications Medications: Current Medications Acetylcysteine (Acetylcysteine 20%) 4 ml IH [id number] PRN PRN Reason: Shortness of Breath Albuterol/Ipratropium (Duoneb 3 Mg/0.5 Mg (3 Ml) Ud) 3 ml IH [id number] PRN PRN Reason: Shortness of Breath Alprazolam (Xanax) 0.5 mg PO BID CONRAD PRN Reason: Protocol Last Admin: 01/31/18 10:16 Dose: Not Given Apixaban (Eliquis) 2.5 mg PO BID CONRAD PRN Reason: Protocol Last Admin: 01/31/18 10:17 Dose: 2.5 mg Atorvastatin Calcium (Lipitor) 40 mg PO DIN [facility] Last Admin: 01/30/18 17:18 Dose: 40 mg Benzocaine/Menthol (Cepacol Sore Throat) 1 macie MT Q2H PRN PRN Reason: Sore Throat Clopidogrel Bisulfate (Plavix) 75 mg PO DAILY [facility] Last Admin: 01/31/18 10:17 Dose: 75 mg Dextrose (Dextrose 50% Inj) 0 ml IV STAT PRN; Protocol PRN Reason: Hypoglycemia Protocol Duloxetine HCl (Cymbalta) 60 mg PO DAILY [facility] Last Admin: 01/31/18 10:16 Dose: 60 mg Glipizide (Glucotrol) 10 mg PO ACBD [facility] Last Admin: 01/31/18 07:56 Dose: 10 mg Guaifenesin/Dextromethorphan (Mucinex-Dm 600-30 Mg) 1 tab PO BID PRN PRN Reason: Cough Hydralazine HCl (Apresoline) 25 mg PO TID [facility] Last Admin: 01/31/18 14:40 Dose: 25 mg Ampicillin Sodium/Sulbactam (Sodium 3 gm/ Sodium Chloride) 100 mls @ 200 mls/ hr IVPB Q6 [facility] Last Admin: 01/31/18 12:25 Dose: 200 mls/hr Insulin Detemir (Levemir) 30 unit SC HS [facility] Last Admin: 01/30/18 22:56 Dose: 30 units Insulin Human Lispro (Humalog Low) 0 units SC ACHS CONRAD PRN Reason: Protocol Last Admin: 01/31/18 17:17 Dose: Not Given Lisinopril (Zestril) 40 mg PO DAILY [facility] Last Admin: 01/31/18 10:17 Dose: 40 mg Methimazole (Tapazole) 20 mg PO BID [facility] Last Admin: 01/31/18 10:17 Dose: 20 mg Metoprolol Succinate (Toprol Xl) 25 mg PO DAILY [facility] Last Admin: 01/31/18 10:17 Dose: 25 mg Ondansetron HCl (Zofran Inj) 4 mg IVP Q4H PRN PRN Reason: Nausea/Vomiting Last Admin: 01/28/18 22:01 Dose: 4 mg Oxycodone/Acetaminophen (Percocet 5/325 Mg Tab) 1 tab PO Q6H PRN PRN Reason: Pain, severe (8-10) Stop: 02/01/18 01:01 Last Admin: 01/31/18 14:43 Dose: 1 tab Pantoprazole Sodium (Protonix Ec Tab) 40 mg PO 0600 [facility] Last Admin: 01/31/18 05:11 Dose: 40 mg Polyethylene Glycol (Miralax) 17 gm PO BID [facility] Repaglinide (Prandin) 2 mg PO AC [facility] Last Admin: 01/31/18 12:25 Dose: 2 mg - Labs Labs: 01/29/18 07:50 01/29/18 07:50 Attending/Attestation - Attestation I have personally seen and examined this patient.: Yes I have fully participated in the care of the patient.: Yes I have reviewed all pertinent clinical information, including history, physical exam and plan: Yes Notes (Text): 01/31/18 17:26 62 year old male with past medical history of CAD, hypertension, and diabetes who presented with abdominal pain found to have acute appendicitis. He was seen by surgery and is s/p laparoscopic converted to open appendectomy POD #5. Surgery is following and drain was removed yesterday. Patient is tolerating diet however complains of constipation. Miralax bid is added. CXR showed patchy infiltrate for which he is on antibiotics. To complete 7-10 days. Endocrinology is following for hyperthyroidism. He is on methimazole. His amiodarone was discontinued yesterday after speaking with Dr. Whatley. He is on toprol xl, lisinopril and hydralazine for hypertension. If BP remains elevated can increase hydralazine dose. Continue with physical therapy while patient is in TCU. D/c planning possibly 1 -2 days. Giselle Varela MD Hospitalist.
[2018-01-31] MEDS ORDERED: POLYETHYLENE GLYCOL 3350 17 GM/Dose PACKET PO SCH (18:00)
--- NOTE | 2018-01-31 18:57 | PN ---
Copied To: Roxy Edmonds MD Attending MD: Roxy Edmonds MD DATE: 01/31/2018 ENDOCRINOLOGY FOLLOWUP NOTE LOCATION: [facility] room 315. SUBJECTIVE: This is a 62-year-old male with recent uncontrolled type 2 insulin-requiring diabetes now being followed closely for metabolic management. His glycemic levels are fluctuating, but improved at this time and the glucose levels overnight have ranged from 150-171 and 177 mg/dL. His latest thyroid study showed a T4 of 16.9 with a TSH of less than 0.02 with a free T4 of 5.32. So at this time, we will continue the same basal and bolus insulin regimen to allow for dose equilibration and keep him on the Levemir given as 30 units subcu at bedtime daily with the combination of oral hypoglycemic therapy of glipizide given as 10 mg b.i.d. before meals and Prandin given as 2 mg t.i.d. before meals as ordered. We will try to keep him only on basal insulin to simplify his regimen to avoid confusion at home with his outpatient diabetic management. We will obtain serial chemistries and supplement accordingly as needed. We will also continue the Tapazole given as 20 mg b.i.d. as modify to allow for full dose equilibration. We will repeat thyroid studies and adjust his dose regimen accordingly. They have actually discontinued the amiodarone therapy yesterday as noted. We will obtain serial chemistries and supplement accordingly as needed. We will follow. Roxy Edmonds MD
[2018-01-31] MEDS: Insulin Detemir 100 units/ml Vial (Levemir) SC SCH (21:34)
[2018-02-01] MEDS: Pantoprazole 40 mg EC Tab PO SCH (05:54)
[2018-02-01] MEDS: Insulin Lispro (humaLOG) LOW Coverage SC SCH ×3 (06:29→17:19)
[2018-02-01] MEDS ORDERED: Magnesium Citrate Oral SOL (300 ml) PO ONE (07:51)
[2018-02-01] MEDS ORDERED: Magnesium Hydroxide Susp 30 ml UD PO PRN (08:01)
--- NOTE | 2018-02-01 08:57 | CP.PCM.PN ---
Subjective - Date & Time of Evaluation Date of Evaluation: 02/01/18 Time of Evaluation: 08:47 - Subjective Subjective: Endocrinology progress note - KhurramArtemio Karthik PGY3 Patient seen and examined at bedside this morning. No acute overnight events or new complaints reported. States that he is eating/sleeping well and participating in physical therapy. Denies chest pain, palpitations, SOB. Objective - Vital Signs/Intake and Output Vital Signs (last 24 hours): Temp Pulse Resp BP Pulse Ox 98 F 71 18 147/81 97 01/31/18 16:00 01/31/18 17:31 01/31/18 16:00 01/31/18 17:31 01/31/18 16:00 - Medications Medications: Current Medications Acetylcysteine (Acetylcysteine 20%) 4 ml IH [id number] PRN PRN Reason: Shortness of Breath Last Admin: 01/31/18 19:25 Dose: 4 ml Albuterol/Ipratropium (Duoneb 3 Mg/0.5 Mg (3 Ml) Ud) 3 ml IH [id number] PRN PRN Reason: Shortness of Breath Last Admin: 01/31/18 19:25 Dose: 3 ml Alprazolam (Xanax) 0.5 mg PO BID CONRAD PRN Reason: Protocol Last Admin: 01/31/18 17:43 Dose: 0.5 mg Apixaban (Eliquis) 2.5 mg PO BID [facility]RAD PRN Reason: Protocol Last Admin: 01/31/18 17:32 Dose: 2.5 mg Atorvastatin Calcium (Lipitor) 40 mg PO DIN [facility] Last Admin: 01/31/18 17:31 Dose: 40 mg Benzocaine/Menthol (Cepacol Sore Throat) 1 macie MT Q2H PRN PRN Reason: Sore Throat Clopidogrel Bisulfate (Plavix) 75 mg PO DAILY [facility] Last Admin: 01/31/18 10:17 Dose: 75 mg Dextrose (Dextrose 50% Inj) 0 ml IV STAT PRN; Protocol PRN Reason: Hypoglycemia Protocol Docusate Sodium (Colace) 100 mg PO DAILY [facility] Duloxetine HCl (Cymbalta) 60 mg PO DAILY [facility] Last Admin: 01/31/18 10:16 Dose: 60 mg Glipizide (Glucotrol) 10 mg PO ACBD [facility] Last Admin: 02/01/18 07:32 Dose: 10 mg Guaifenesin/Dextromethorphan (Mucinex-Dm 600-30 Mg) 1 tab PO BID PRN PRN Reason: Cough Hydralazine HCl (Apresoline) 25 mg PO TID [facility] Last Admin: 01/31/18 17:31 Dose: 25 mg Insulin Detemir (Levemir) 30 unit SC HS [facility] Last Admin: 01/31/18 21:34 Dose: Not Given Insulin Human Lispro (Humalog Low) 0 units SC ACHS [facility] PRN Reason: Protocol Last Admin: 02/01/18 06:29 Dose: Not Given Lisinopril (Zestril) 40 mg PO DAILY [facility] Last Admin: 01/31/18 10:17 Dose: 40 mg Magnesium Hydroxide (Milk Of Magnesia) 30 ml PO DAILY PRN PRN Reason: Constipation Methimazole (Tapazole) 20 mg PO BID [facility] Last Admin: 01/31/18 17:33 Dose: 20 mg Metoprolol Succinate (Toprol Xl) 25 mg PO DAILY [facility] Last Admin: 01/31/18 10:17 Dose: 25 mg Ondansetron HCl (Zofran Inj) 4 mg IVP Q4H PRN PRN Reason: Nausea/Vomiting Last Admin: 01/28/18 22:01 Dose: 4 mg Pantoprazole Sodium (Protonix Ec Tab) 40 mg PO 0600 [facility] Last Admin: 02/01/18 05:54 Dose: 40 mg Polyethylene Glycol (Miralax) 17 gm PO BID [facility] Repaglinide (Prandin) 2 mg PO AC [facility] Last Admin: 02/01/18 07:32 Dose: 2 mg - Labs Labs: 01/29/18 07:50 01/29/18 07:50 - Constitutional Appears: No Acute Distress - Head Exam Head Exam: ATRAUMATIC, NORMAL INSPECTION, NORMOCEPHALIC - Eye Exam Eye Exam: EOMI Pupil Exam: PERRL - ENT Exam ENT Exam: Mucous Membranes Moist - Respiratory Exam Respiratory Exam: absent: Rales, Rhonchi, Wheezes - Cardiovascular Exam Cardiovascular Exam: +S1, +S2. absent: Gallop, Rubs - GI/Abdominal Exam GI & Abdominal Exam: Soft. absent: Distended, Firm, Guarding, Rigid, Tenderness , Rebound - Neurological Exam Neurological Exam: Alert, Awake, CN II-XII Intact, Oriented x3 - Psychiatric Exam Psychiatric exam: Normal Affect, Normal Mood - Skin Skin Exam: Dry, Intact, Normal Color, Warm Assessment and Plan - Assessment and Plan (Free Text) Plan: 62yo male with history of uncontrolled DM type 2, CAD, HTN that [place] [facility] [place] pain 2/2 acute appendicitis. Endo consulted for hyperthyroidism and metabolic management -Amiodarone has been held per recommendations of cardiology -He is on methimazole 20 BID for hyperthyroidism management -For glycemic control we will continue his glipizide and prandin as well as levemir 30u HS and humalog low dose ISS -monitor and correct electrolyte abnormalities as indicated -Consistent carb diet -continue with PT -Further management as per primary team Patient seen and case to be discussed/reviewed with attending, Dr. Edmonds
[2018-02-01] MEDS ORDERED: POLYETHYLENE GLYCOL 3350 17 GM/Dose PACKET PO SCH (10:00)
[2018-02-01] MEDS: POLYETHYLENE GLYCOL 3350 17 GM/Dose PACKET PO SCH ×2 (10:04→17:25)
[2018-02-01] MEDS: Metoprolol Succinate 25 mg XL Tab PO SCH (10:05)
[2018-02-01 10:16] VITALS: RESP 20
--- NOTE | 2018-02-01 10:17 | PN ---
Copied To: Roxy Edmonds MD Attending MD: Roxy Edmonds MD DATE: 02/01/2018 ENDOCRINOLOGY FOLLOWUP ROOM: [facility] room 315. This is a 62-year-old male with recent admission for acute appendicitis and underwent surgical resection with an open appendectomy and is now improving clinically and found to be clinically as noted thereof. His oral intake, however, remains variable as per the nursing staff with suboptimal meal portions as noted. His glycemic levels are fluctuating but improved and the glucose levels overnight have ranged from 109 to 150 and 218 mg/dL. His latest chemistries show a BUN of 27, sodium 143, potassium 4.2, chloride 103, CO2 28, glucose 252 and creatinine 1.7. His repeat thyroid studies were not done as the patient refused them yesterday and the levels done on the 01/29/2018 showed a T4 of 16.9 with a TSH of less than 0.02. So at this time, we will continue the same basal insulin given as Levemir at 30 units subcu at bedtime daily as ordered. We will also continue the oral hypoglycemic drug therapy given in combination with glipizide at 10 mg b.i.d. before meals and Prandin given as 2 mg t.i.d. before meals as ordered. These medications are actually what he is taking at home prior to this admission. We will also continue the Tapazole given as 20 mg p.o. b.i.d. as ordered. 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 We will also obtain serial chemistries and supplement accordingly as needed. We will follow with you. Roxy Edmonds MD
[2018-02-01] MEDS ORDERED: Oxycodone/Acetaminophen 10/325 mg Tab PO PRN (11:01)
[2018-02-01 16:31] VITALS: BP 148/75; PULSE 69; TEMP 98; O2SAT 95
--- NOTE | 2018-02-01 19:53 | CP.PCM.DIS ---
Provider - Provider Date of Admission: 01/28/18 19:21 Attending physician: Giselle Varela MD Primary care physician: Evelyn Landin MD Consults: Surgery - Dr. Chong Cardiology - Dr. Archer Endocrinology - Dr. Edmonds Time Spent in preparation of Discharge (in minutes): 45 Hospital Course - Lab Results Lab Results: Most Recent Lab Values WBC 10.0 10^3/ul (4.5-11.0) 01/29/18 07:50 RBC 4.38 10^6/uL (3.5-6.1) 01/29/18 07:50 Hgb 12.7 g/dL (14.0-18.0) L 01/29/18 07:50 Hct 37.6 % (42.0-52.0) L 01/29/18 07:50 MCV 85.8 fl (80.0-105.0) 01/29/18 07:50 MCH 29.0 pg (25.0-35.0) 01/29/18 07:50 MCHC 33.8 g/dl (31.0-37.0) 01/29/18 07:50 RDW 13.0 % (11.5-14.5) 01/29/18 07:50 Plt Count 220 10^3/uL (120.0-450.0) 01/29/18 07:50 MPV 10.2 fl (7.0-11.0) 01/29/18 07:50 Gran % 77.9 % (50.0-68.0) H 01/29/18 07:50 Lymph % (Auto) 14.7 % (22.0-35.0) L 01/29/18 07:50 [place] % (Auto) 5.1 % (1.0-6.0) 01/29/18 07:50 Eos % (Auto) 2.0 % (1.5-5.0) 01/29/18 07:50 Baso % (Auto) 0.3 % (0.0-3.0) 01/29/18 07:50 Gran # 7.81 (1.4-6.5) H 01/29/18 07:50 Lymph # (Auto) 1.5 (1.2-3.4) 01/29/18 07:50 [place] # (Auto) 0.5 (0.1-0.6) 01/29/18 07:50 Eos # (Auto) 0.2 (0.0-0.7) 01/29/18 07:50 Baso # (Auto) 0.03 K/mm3 (0.0-2.0) 01/29/18 07:50 Sodium 143 mmol/L (132-148) 01/29/18 07:50 Potassium 4.2 mmol/L (3.6-5.0) 01/29/18 07:50 Chloride 103 mmol/L (98-107) 01/29/18 07:50 Carbon Dioxide 28 mmol/L (21-33) 01/29/18 07:50 Anion Gap 17 (10-20) 01/29/18 07:50 BUN 27 mg/dL (7-21) H 01/29/18 07:50 Creatinine 1.5 mg/dl (0.8-1.5) 01/29/18 07:50 Est GFR ( Amer) 57 01/29/18 07:50 Est GFR (Non-Af Amer) 47 01/29/18 07:50 POC Glucose (mg/dL) 146 mg/dL (65-110) H 02/01/18 16:34 Random Glucose 252 mg/dL (70-110) H 01/29/18 07:50 Calcium 9.5 mg/dL (8.4-10.5) 01/29/18 07:50 Total Bilirubin 0.5 mg/dL (0.2-1.3) 01/29/18 07:50 AST 25 U/L (17-59) 01/29/18 07:50 ALT 18 U/L (7-56) 01/29/18 07:50 Alkaline Phosphatase 75 U/L (38-126) 01/29/18 07:50 Total Protein 6.4 g/dL (5.8-8.3) 01/29/18 07:50 Albumin 3.4 g/dL (3.0-4.8) 01/29/18 07:50 Globulin 3.0 gm/dL 01/29/18 07:50 Albumin/Globulin Ratio 1.1 (1.1-1.8) 01/29/18 07:50 Free T4 5.32 ng/dL (0.78-2.19) H 01/29/18 07:50 Thyroxine (T4) 16.9 ug/dL (5.5-11.0) H 01/29/18 07:50 TSH 3rd Generation < 0.02 mIU/mL (0.46-4.68) L 01/29/18 07:50 - Hospital Course Hospital Course: Jack Cooper DO PGY-1, [employer] Discharge Summary 62 year old male with past medical history of hypertension, PAD, GERD, DM II, atrial fibrillation, CAD s/p stent placement in October, amputation of left toe, stroke 5-6 years ago, admitted for acute appendicitis. Patient is s/p laparoscopic converted to open appendectomy. Patient was treated with Acetylcysteine, duoneb, xanax, amiodarone, eliquis, lipitor, plavix, cymbalta, hydralazine, cefoxitin, metronidazole, insulin, lisinopril, tapazole, toprol XL , morphine, zofran, protonix, and prandin. During the course of his hospital stay, he got an EKG that showed normal sinus rhythm at [address] showed uncomplicated acute appendicitis with 2 appendicoliths involving the proximal appendix. Incidental and other non-acute findings are described above. The appendix demonstrates moderate diffuse distention, consistent with moderate acute appendicitis. There are multiple intraluminal appendiceal calcifications consistent with appendicoliths. Appendiceal diameter 2.2 cm. There is moderate periappendiceal inflammatory stranding. Chest xray showed one limited patchy airspace disease medial right apex and left perihilar region, remaining lung [place] appear clear. Labs revealed that patient has hyperthyroidism with TSH: < 0.02 and free T4: 4.07. Endocrinology (Dr. Edmonds) started patient on methimazole since the patient has hyperthyroidism. Cardiology (Dr. Archer) recommended patient to continue home amiodarone, atorvastatin, lisinopril, and metoprolol succinate. Patient had laparoscopic converted to open appendectomy, was POD#6 on day of discharge. Medicine reconciliation was done and TCU staff was given instructions to continue patient's home medications. In TCU, pt had difficulty with having BM, and was given Colace, Miralax, and Mag sulfate, and had BM on day of discharge with passing flatus. Patient was instructed to follow up with primary care doctor within one week of discharge from TCU, and to follow with Dr. Chong (General Surgery) within 1 week of discharge. Patient further informed to return to the ED for worsening of symptoms.Pt was discharged on Augmentin bid for total of 5 days, and given Motrin for pain symptoms. Discharge Exam - Head Exam Head Exam: ATRAUMATIC, NORMAL INSPECTION, NORMOCEPHALIC - Eye Exam Eye Exam: EOMI, Normal appearance, PERRL - ENT Exam ENT Exam: Mucous Membranes Moist, Normal Oropharynx - Respiratory Exam Respiratory Exam: Clear to PA & Lateral, NORMAL BREATHING PATTERN, UNREMARKABLE - Cardiovascular Exam Cardiovascular Exam: REGULAR RHYTHM, +S1, +S2 - GI/Abdominal Exam GI & Abdominal Exam: Normal Bowel Sounds, Soft, Unremarkable - Extremities Exam Extremities exam: full ROM, normal capillary refill, normal inspection, pedal pulses present - Back Exam Back exam: FULL ROM, NORMAL INSPECTION - Neurological Exam Neurological exam: Alert, CN II-XII Intact, Normal Gait, Oriented x3 - Psychiatric Exam Psychiatric exam: Normal Affect, Normal Mood - Skin Skin Exam: Dry, Intact, Normal Color, Warm Discharge Plan - Discharge Medications Prescriptions: Amoxicillin/Clavulanate [Augmentin 875 MG-125 MG] 1 tab PO BID #10 tab Ibuprofen [Motrin] 600 mg PO QID PRN #24 tab PRN Reason: Pain, Moderate (4-7) - Follow Up Plan Condition: GOOD Disposition: HOME/ ROUTINE Instructions: Wound Dehiscence, Constipation, Adult (DC), Pneumonia, Adult (DC) , Surgical Wound (DC), Wound Care (DC), Appendectomy, Open Surgery (DC) Additional Instructions: Please follow-up with your primary care physician within 3-5 days after discharge. Please follow-up with Dr. Chong (General Surgeon) within 1 week of discharge for post-op follow-up. Take medications as prescribed, including Augmentin twice daily for antibiotic for 5 days, and Motrin 4 times a day as needed for pain. Please keep dressing site dry and intact, do not immerse directly in water. Should symptoms recur or worsen, please call your primary care physician, or report to your nearest emergency department. Referrals: Evelyn Howell MD [Primary Care Provider] - Jefferson Chong MD [Staff Provider] -
== END 2018-02-01 19:00 | disposition home health service (06) | DRG 949 ==
LOC: TRCU 19:21
PROVIDERS: ADMIT Internal Medicine; ATTEND Internal Medicine
PROC: F07Z9FZ Gait Training/Functional Ambulation Treatment using Assistive, Adaptive, Supportive or Protective Equipment (ICD-10-PCS; principal; 2018-01-30)
PROC: F07Z5ZZ Bed Mobility Treatment (ICD-10-PCS; 2018-01-30)
PROC: F07K6ZZ Therapeutic Exercise Treatment of Musculoskeletal System - Upper Back / Upper Extremity (ICD-10-PCS; 2018-01-30)
PROC: F07L6ZZ Therapeutic Exercise Treatment of Musculoskeletal System - Lower Back / Lower Extremity (ICD-10-PCS; 2018-01-30)
PROC: F07Z8FZ Transfer Training Treatment using Assistive, Adaptive, Supportive or Protective Equipment (ICD-10-PCS; 2018-01-31)
PROC: F08Z2ZZ Grooming/Personal Hygiene Treatment (ICD-10-PCS; 2018-01-31)
DX: Z48.815 Encounter for surgical aftercare following surgery on the digestive system (principal); J18.9 Pneumonia, unspecified organism; E11.52 Type 2 diabetes mellitus with diabetic peripheral angiopathy with gangrene; I25.10 Atherosclerotic heart disease of native coronary artery without angina pectoris; I48.91 Unspecified atrial fibrillation; I12.9 Hypertensive chronic kidney disease with stage 1 through stage 4 chronic kidney disease, or unspecified chronic kidney disease; E11.22 Type 2 diabetes mellitus with diabetic chronic kidney disease; N18.3 Chronic kidney disease, stage 3 (moderate); E05.80 Other thyrotoxicosis without thyrotoxic crisis or storm; T46.2X5A Adverse effect of other antidysrhythmic drugs, initial encounter; E11.65 Type 2 diabetes mellitus with hyperglycemia; K21.9 Gastro-esophageal reflux disease without esophagitis; F32.9 Major depressive disorder, single episode, unspecified; F41.9 Anxiety disorder, unspecified; K59.00 Constipation, unspecified; Z79.4 Long term (current) use of insulin; Z86.73 Personal history of transient ischemic attack (TIA), and cerebral infarction without residual deficits; Z95.5 Presence of coronary angioplasty implant and graft; Z87.891 Personal history of nicotine dependence; Z89.422 Acquired absence of other left toe(s); Z80.0 Family history of malignant neoplasm of digestive organs; Z83.3 Family history of diabetes mellitus; Z80.6 Family history of leukemia